=== PATIENT | male | born 1960 | race Caucasian/White ===

== ENCOUNTER 2020-06-20 08:56 | Inpatient (IN) | payer OTHER ==
--- NOTE | 2020-06-20 09:44 | PDOC ---
History of Present Illness - General Chief Complaint: Pain Stated Complaint: STOMACH PAIN Time Seen by Provider: 06/20/20 09:39 History Source: Patient - History of Present Illness Initial Comments: 06/20/20 10:07 Mr. Helm is a 59 y/o M w/hx CHF, HTN, DM one month ago admitted for CHF excacerbation at [facility] worsening sob, orthopnea since alongside leg swelling Describes worsening abdominal swelling/tightness Now sleeps sitting up in chair no fevers, chills, but reports generalized weakness PCP: Dr. Roldan Past History - Medical History Allergies/Adverse Reactions: Allergies Allergy/AdvReac Type Severity Reaction Status Date / Time No Known Allergies Allergy Verified 06/20/20 08:59 COPD: No Diabetes: Yes HTN: Yes - Psycho-Social/Smoking History Smoking History: Never smoked - Substance Abuse Hx (Audit-C & DAST Scrn) How often the patient has a drink containing alcohol: Never Score: In Men: 4 or > Positive; In Women: 3 or > Positive: 0 Screen Result (Pos requires Nsg. Audit-10AR): Negative *Physical Exam - Vital Signs Last Vital Signs Temp Pulse Resp BP Pulse Ox 97 F L 74 18 194/114 H 95 06/20/20 08:57 06/20/20 08:57 06/20/20 08:57 06/20/20 08:57 06/20/20 08:57 ED Treatment Course - LABORATORY CBC & Chemistry Diagram: 06/20/20 10:20 06/20/20 10:28 Medical Decision Making - Medical Decision Making 06/20/20 17:26 59M w/hx CHF, DM, HTN p/w 4 days of worsening orthopnea, generalized weakness, worsening lower extremity swelling, and recent inpatient admission at [facility] for CHF exacerbation, consistent with CHF exacerbation. Ddx ACS, acute on chronic CHF. Plan: CBC CMP EKG CXR Troponin I BNP secured entrance monitor Sublingual nitro Dispo: Admit --- Glucose - 890 No anion gap on initial electrolytes. K - 4.4 Na (corrected for glucose) to 134 Cr - 2.6 Plan for VBG, 10u insulin SQ with frequent rechecks given SADIA vs CKD. BNP - >9000. --- VBG - wnl --- Case discussed with inpatient team, admitted under Dr. Bhandari. Discharge - Discharge Information Problems reviewed: Yes Clinical Impression/Diagnosis: Hyperglycemia CHF (congestive heart failure) Qualifiers: Heart failure type: unspecified Heart failure chronicity: acute Qualified Code(s): I50.9 - Heart failure, unspecified Condition: Stable - Admission Yes - Follow up/Referral - Patient Discharge Instructions - Post Discharge Activity
[2020-06-20 10:48] LABS: HEMATOCRIT 30.8 % (35.4-49); HEMOGLOBIN 9.2 GM/dL (11.7-16.9); MCH 23.3 pg (25.7-33.7); MCHC 29.7 g/dl (32.0-35.9); MEAN CELL VOLUME 78.3 fl (80-96); MEAN PLT VOLUME 10.6 fl (7.5-11.1); PLATELET COUNT 305 K/MM3 (134-434); RBC 3.94 M/mm3 (4.00-5.60); RDW 24.4 % (11.9-15.9)
[2020-06-20] MEDS ORDERED: NITROGLYCERIN SUBLINGUAL 1/150 0.4 MG TAB SL ONE (10:54)
[2020-06-20] MEDS ORDERED: NITROGLYCERIN SUBLINGUAL 1/150 0.4 MG TAB ONE (11:02)
[2020-06-20 11:06] LABS: WHITE BLOOD COUNT 8.7 K/mm3 (4.0-10.0)
[2020-06-20 11:08] LABS: ALBUMIN 3.1 g/dl (3.4-5.0); BLOOD UREA NITROGEN 20.4 mg/dL (7-18); CREATININE 2.9 mg/dL (0.55-1.3); N-TERMINAL BNP 9595.1 pg/ml (5-125); POTASSIUM 4.4 mmol/L (3.5-5.1); TOT PROT 7.4 g/dl (6.4-8.2)
[2020-06-20 11:37] LABS: BILIRUBIN,TOTAL 1.2 mg/dL (0.2-1)
[2020-06-20 11:50] LABS: ANISOCYTOSIS 3+; MACROCYTOSIS 0; PLATELET ESTIMATE NORMAL
[2020-06-20] MEDS ORDERED: FUROSEMIDE 40 MG TABLET (FP) ONE (12:00)
[2020-06-20] MEDS ORDERED: INSULIN REGULAR HUMAN 100 UNITS/ML *VIAL SQ ONE ×2 (12:02→19:39)
[2020-06-20] MEDS ORDERED: FUROSEMIDE 40 MG TABLET (FP) PO ONE (12:03)
[2020-06-20] MEDS ORDERED: amLODIPine BESYLATE 5 MG TABLET (FP) PO ONE (12:49)
[2020-06-20] MEDS ORDERED: amLODIPine BESYLATE 5 MG TABLET (FP) ONE (12:51)
--- NOTE | 2020-06-20 13:59 | PDOC ---
Documentation entered by Renetta Damon SCRIBE, acting as scribe for Halle Kat MD. Halle Kat MD: This documentation has been prepared by the larryeNelson Ana, SCRIBE, under my direction and personally reviewed by me in its entirety. I confirm that the documentation accurately reflects all work, treatment, procedures, and medical decision making performed by me. Attending Attestation - Resident Resident Name: Osmin Dc - ED Attending Attestation I have performed the following: I have examined & evaluated the patient, The case was reviewed & discussed with the resident, I agree w/resident's findings & plan, Exceptions are as noted - HPI HPI: 06/20/20 09:50 Agree with resident hx - Physicial Exam PE: 06/20/20 13:31 Agree with resident exam - Medical Decision Making 06/20/20 13:31 59yo M hx CHF, DM presents to the ED with SOB Bp elevated on arrival, pt poor historian. States he does not take meds for DM states he is compliant with lasix, but does not know dose +LE edema and diminished BS at the bases concerning for CHF exacerbation Blood sugar in 800s, with no anion gap. Likely hyperglycemia in setting of med non-compliance Pt given IV lasix and SQ insulin 10 units given - insulin underdosed as homeopathic doctor elevated Pt admitted for CHF exacerbation and glucose control Case discussed in detail with admitting physician including history, physical exam and ancillary studies. Admitting physician has assumed care for the patient, will follow all pending diagnostics and will complete the evaluation and treatment. Discharge - Discharge Information Problems reviewed: Yes Clinical Impression/Diagnosis: Hyperglycemia Condition: Stable - Follow up/Referral - Patient Discharge Instructions - Post Discharge Activity
[2020-06-20] MEDS: FUROSEMIDE 40 MG/4 ML INJECTABLE VIAL IVPUSH SCH (17:23)
--- NOTE | 2020-06-20 17:49 | EKG ---
Test Reason : Blood Pressure : / mmHG Vent. Rate : 068 BPM Atrial Rate : 068 BPM P-R Int : 188 ms QRS Dur : 116 ms QT Int : 454 ms P-R-T Axes : 074 037 116 degrees QTc Int : 482 ms NORMAL SINUS RHYTHM LEFT ATRIAL ENLARGEMENT LEFT VENTRICULAR HYPERTROPHY T WAVE ABNORMALITY, CONSIDER LATERAL ISCHEMIA PROLONGED QT ABNORMAL ECG NO PREVIOUS ECGS AVAILABLE Confirmed by MD MC, ABIODUN ([id number]) on 06/20/2020 5:49:15 PM Referred By: Confirmed By:ABIODUN BENTLEY MD
[2020-06-20] MEDS ORDERED: METOPROLOL TARTRATE 5 MG/5 ML VIAL IVPUSH PRN (19:22)
[2020-06-20] MEDS ORDERED: FUROSEMIDE 40 MG/4 ML INJECTABLE VIAL IVPUSH ONE (19:24)
[2020-06-20] MEDS ORDERED: hydrALAZINE HCL 20 MG/ML VIAL IVPUSH ONE (19:27)
[2020-06-20] MEDS ORDERED: INSULIN (LEVEMIR) 100 UNITS/ML UNITS SQ ONE ×2 (19:38→21:00)
[2020-06-20] MEDS ORDERED: FUROSEMIDE 40 MG/4 ML INJECTABLE VIAL ONE (19:43)
[2020-06-20] MEDS ORDERED: hydrALAZINE HCL 20 MG/ML VIAL ONE (19:43)
[2020-06-20] MEDS ORDERED: POTASSIUM CHLORIDE TABS 20 MEQ TABLET.ER (FP) PO SCH (19:45)
[2020-06-20 20:35] LABS: ALBUMIN 2.9 g/dl (3.4-5.0); BILIRUBIN,TOTAL 1.3 mg/dL (0.2-1); BLOOD UREA NITROGEN 19.1 mg/dL (7-18); CALCIUM 9.2 mg/dL (8.5-10.1); CREATININE 2.6 mg/dL (0.55-1.3); POTASSIUM 3.8 mmol/L (3.5-5.1); TOT PROT 6.9 g/dl (6.4-8.2)
[2020-06-20] MEDS ORDERED: POTASSIUM CHLORIDE TABS 20 MEQ TABLET.ER (FP) PO ONE (20:56)
[2020-06-20] MEDS ORDERED: CARVEDILOL 3.125 MG TABLET (FP) ONE (22:35)
[2020-06-20] MEDS: CARVEDILOL 6.25 MG TABLET (FP) PO SCH (23:06)
[2020-06-20] MEDS: hydrALAZINE HCL 10 MG TABLET PO SCH (23:06)
[2020-06-20] MEDS ORDERED: INSULIN (NOVOLOG) ASPART 100 UNITS/ML 10ML VIAL SQ ONE (23:53)
[2020-06-21] MEDS ORDERED: DEXTROSE 50%-WATER - 25 GM/50 ML VIAL IVPUSH ONE ×2 (05:08→09:00)
[2020-06-21] MEDS ORDERED: DEXTROSE 50%-WATER 25 GM/50 ML DISP.SYRIN ONE ×2 (05:09→08:02)
[2020-06-21] MEDS: hydrALAZINE HCL 10 MG TABLET PO SCH ×3 (05:22→21:26)
--- NOTE | 2020-06-21 08:02 | CONSULT ---
Consult Consult Specialty:: Nephrology Reason for Consultation:: CKD - History of Present Illness Chief Complaint: shortness of breath History of Present Illness: Pt is a 59 year old male with pmhx of CHD, DM, CKD and HTN who presents to the ER with shortness of breath and lower ext edema. He is known to me. He denies chest pain or palpitations. He was found to be hyponatremic and fluids overloaded. He was supposed to be on torsemide since his last hospital discharge however he is not sure if he is taking it. He was also found to be hyperglycemic as well. He says he was taking insulin at home. - History Source History Provided By: Patient, Medical Record - Past Medical History Cardio/Vascular: Yes: CHF, HTN Renal/: Yes: Renal Inusuff Endocrine: Yes: Diabetes Mellitus - Smoking History Smoking history: Never smoked Home Medications - Allergies Allergies/Adverse Reactions: Allergies Allergy/AdvReac Type Severity Reaction Status Date / Time No Known Allergies Allergy Verified 06/20/20 08:59 - Home Medications Home Medications: Ambulatory Orders Unobtainable 06/20/20 Family Medical History Family History: Denies Review of Systems - Review of Systems Constitutional: reports: Malaise Eyes: reports: No Symptoms HENT: reports: No Symptoms Neck: reports: No Symptoms Cardiovascular: reports: Edema, Shortness of Breath Respiratory: reports: SOB on Exertion Gastrointestinal: reports: No Symptoms Genitourinary: reports: No Symptoms Musculoskeletal: reports: No Symptoms Integumentary: reports: No Symptoms Neurological: reports: No Symptoms Endocrine: reports: No Symptoms Hematology/Lymphatic: reports: No Symptoms Psychiatric: reports: No Symptoms Physical Exam Vital Signs: Vital Signs Temperature 98.1 F 06/21/20 06:58 Pulse Rate 56 L 06/21/20 06:58 Respiratory Rate 18 06/21/20 06:58 Blood Pressure 123/86 06/21/20 06:58 O2 Sat by Pulse Oximetry (%) 100 06/21/20 06:58 Constitutional: Yes: Calm Eyes: Yes: Conjunctiva Clear HENT: Yes: Atraumatic Neck: Yes: Supple Cardiovascular: Yes: Regular Rate and Rhythm, S1, S2 Respiratory: Yes: On Nasal O2, Rhonchi Gastrointestinal: Yes: Normal Bowel Sounds, Soft Renal/: Yes: WNL Edema: Yes Edema: LLE: 2+, RLE: 2+ Neurological: Yes: Oriented Psychiatric: Yes: Oriented Labs: CBC, BMP 06/20/20 10:20 06/20/20 19:40 Laboratory Tests 06/20/20 06/20/20 06/20/20 10:20 10:28 19:40 WBC 8.7 Hgb 9.2 L Sodium 123 L 128 L Potassium BUN Creatinine 2.9 H 2.6 H Magnesium COVID-19 ([facility]) 06/21/20 06/21/20 06/21/20 04:25 08:27 08:27 WBC Hgb 9.7 L Sodium 133 L Potassium 3.0 L BUN 20.5 H Creatinine 2.5 H Magnesium 2.3 COVID-19 ([facility]) Pending Imaging - Results Chest X-ray: Report Reviewed Problem List - Problems (1) CKD (chronic kidney disease) Code(s): N18.9 - CHRONIC KIDNEY DISEASE, UNSPECIFIED (2) Hyponatremia Code(s): E87.1 - HYPO-OSMOLALITY AND HYPONATREMIA (3) Anemia Code(s): D64.9 - ANEMIA, UNSPECIFIED (4) CHF (congestive heart failure) Code(s): I50.9 - HEART FAILURE, UNSPECIFIED Qualifiers: Heart failure type: unspecified Heart failure chronicity: acute Qualified Code(s): I50.9 - Heart failure, unspecified (5) Diabetes Code(s): E11.9 - TYPE 2 DIABETES MELLITUS WITHOUT COMPLICATIONS (6) HTN (hypertension) Code(s): I10 - ESSENTIAL (PRIMARY) HYPERTENSION Assessment/Plan Current Medications Generic Name Dose Route Start Last Admin Trade Name Salvatoreq PRN Reason Stop Dose Admin Carvedilol 6.25 mg 06/20/20 22:00 06/20/20 23:06 Coreg - PO 6.25 mg BID MANOHAR Administration Furosemide 40 mg 06/20/20 13:00 06/20/20 17:23 Lasix Injection - IVPUSH Not Given DAILY MANOHAR Hydralazine HCl 10 mg 06/20/20 22:00 06/21/20 05:22 Apresoline - PO 10 mg TID MANOHAR Administration Insulin Aspart 1 vial 06/21/20 07:00 Novolog Vial Sliding Scale - SQ TIDAC [facility] Protocol Insulin Detemir 30 units 06/21/20 10:00 Levemir Vial SQ BID MANOHAR Isosorbide Mononitrate 30 mg 06/21/20 10:00 Imdur - PO DAILY MANOHAR Potassium Chloride 20 meq 06/20/20 19:45 06/20/20 20:57 K-Dur - PO 20 meq DAILY MANOHAR Administration Impression 1. CKD 2. hyponatremia - hypervolemic 3. DM 4. HTN 5. hyperglycemia 6. volume overload Plan - cont lasix - replace potassium - monitor lytes - sodium improving - follow echo - pt has CKD, will monitor renal function and follow as outpt - bp is improved - restrict free water
[2020-06-21] MEDS: INSULIN SLIDING SCALE (NOVOLOG) 1 VIAL SQ SCH ×3 (08:10→18:13)
[2020-06-21 08:54] LABS: HEMATOCRIT 31.5 % (35.4-49); HEMOGLOBIN 9.7 GM/dL (11.7-16.9); MCH 23.1 pg (25.7-33.7); MCHC 30.9 g/dl (32.0-35.9); MEAN CELL VOLUME 74.6 fl (80-96); MEAN PLT VOLUME 9.9 fl (7.5-11.1); PLATELET COUNT 380 K/MM3 (134-434); RBC 4.22 M/mm3 (4.00-5.60); RDW 24.3 % (11.9-15.9); WHITE BLOOD COUNT 9.3 K/mm3 (4.0-10.0)
[2020-06-21 09:10] LABS: ALBUMIN 2.8 g/dl (3.4-5.0); BILIRUBIN,TOTAL 1.6 mg/dL (0.2-1); BLOOD UREA NITROGEN 20.5 mg/dL (7-18); CALCIUM 9.3 mg/dL (8.5-10.1); CREATININE 2.5 mg/dL (0.55-1.3); MAGNESIUM 2.3 mg/dL (1.8-2.4); TOT PROT 7.1 g/dl (6.4-8.2)
--- NOTE | 2020-06-21 09:27 | PN ---
Progress Note, Physician History of Present Illness: 59M w/hx CHF, DM, HTN p/w 4 days of worsening orthopnea, generalized weakness, worsening lower extremity swelling, and recent inpatient admission at [facility] for CHF exacerbation, consistent with CHF exacerbation. Ddx ACS, acute on chronic CHF. - Current Medication List Current Medications: Active Medications Carvedilol (Coreg -) 6.25 mg PO BID [facility] Last Admin: 06/20/20 23:06 Dose: 6.25 mg Documented by: Furosemide (Lasix Injection -) 40 mg IVPUSH DAILY [facility] Last Admin: 06/20/20 17:23 Dose: Not Given Documented by: Hydralazine HCl (Apresoline -) 10 mg PO TID [facility] Last Admin: 06/21/20 05:22 Dose: 10 mg Documented by: Insulin Aspart (Novolog Vial Sliding Scale -) 1 vial SQ TIDAC [facility]; Protocol Last Admin: 06/21/20 08:10 Dose: Not Given Documented by: Insulin Detemir (Levemir Vial) 30 units SQ BID [facility] Isosorbide Mononitrate (Imdur -) 30 mg PO DAILY [facility] Potassium Chloride (K-Dur -) 20 meq PO DAILY [facility] Last Admin: 06/20/20 20:57 Dose: 20 meq Documented by: - Objective Vital Signs: Vital Signs Temperature 98.1 F 06/21/20 06:58 Pulse Rate 56 L 06/21/20 06:58 Respiratory Rate 18 06/21/20 06:58 Blood Pressure 123/86 06/21/20 06:58 O2 Sat by Pulse Oximetry (%) 100 06/21/20 06:58 Cardiovascular: Yes: S1, S2 Respiratory: Yes: Diminished, On Nasal O2, Rales (at the bases) Gastrointestinal: Yes: Normal Bowel Sounds, Soft Labs: CBC, BMP 06/21/20 08:27 06/21/20 08:27 Problem List - Problems (1) CHF (congestive heart failure) Assessment/Plan: Orders 06/20/20 22:00 Carvedilol [Coreg -] 6.25 mg PO BID Lasix 40 IVP daily cardiology consult Echo follow labs Code(s): I50.9 - HEART FAILURE, UNSPECIFIED Qualifiers: Heart failure type: unspecified Heart failure chronicity: acute Qualified Code(s): I50.9 - Heart failure, unspecified (2) Diabetes Assessment/Plan: insulin bgm endo Code(s): E11.9 - TYPE 2 DIABETES MELLITUS WITHOUT COMPLICATIONS (3) Hyperglycemia Code(s): R73.9 - HYPERGLYCEMIA, UNSPECIFIED (4) HTN (hypertension) Assessment/Plan: monitor on current meds Code(s): I10 - ESSENTIAL (PRIMARY) HYPERTENSION (5) SADIA (acute kidney injury) Code(s): N17.9 - ACUTE KIDNEY FAILURE, UNSPECIFIED (6) Anemia Code(s): D64.9 - ANEMIA, UNSPECIFIED
[2020-06-21] MEDS ORDERED: POTASSIUM CHLORIDE TABS 20 MEQ TABLET.ER (FP) PO ONE ×2 (09:34→10:38)
[2020-06-21 10:12] LABS: ANISOCYTOSIS 1+; MACROCYTOSIS 1+; PLATELET ESTIMATE NORMAL
[2020-06-21] MEDS ORDERED: FUROSEMIDE 40 MG/4 ML INJECTABLE VIAL ONE (10:38)
[2020-06-21] MEDS: ISOSORBIDE MONONITRATE 30 MG TAB.SR.24H (FP) PO SCH (10:55)
[2020-06-21] MEDS: CARVEDILOL 6.25 MG TABLET (FP) PO SCH ×2 (10:55→21:26)
--- NOTE | 2020-06-21 11:22 | CON.CARD ---
Consult Consult Specialty:: Cardiology Referred by:: Elisabet Reason for Consultation:: CHF - History of Present Illness Chief Complaint: SOB, edema History of Present Illness: He is a 59 year old man with a history of HTN, NIDDM, CHF noncompliant with medications, followed by Dr Benoit at [facility] recently admitted there for CHF now complains of 2-3 weeks of CONTRERAS, orthopnea, edema. Found with CKD?SADIA (unknown baseline) hyponatremia and CHF. ECG nsr lvh repol nssttw changes CXR cm chf TnI negative BNP elevated - History Source History Provided By: Patient, Medical Record - Smoking History Smoking history: Never smoked Home Medications - Allergies Allergies/Adverse Reactions: Allergies Allergy/AdvReac Type Severity Reaction Status Date / Time No Known Allergies Allergy Verified 06/20/20 08:59 - Home Medications Home Medications: Ambulatory Orders Unobtainable 06/20/20 Review of Systems - Review of Systems Constitutional: reports: No Symptoms Eyes: reports: No Symptoms HENT: reports: No Symptoms Neck: reports: No Symptoms Gastrointestinal: reports: No Symptoms Genitourinary: reports: No Symptoms Vital Signs: Vital Signs Temperature 98.1 F 06/21/20 06:58 Pulse Rate 56 L 06/21/20 06:58 Respiratory Rate 18 06/21/20 06:58 Blood Pressure 123/86 06/21/20 06:58 O2 Sat by Pulse Oximetry (%) 100 06/21/20 06:58 Constitutional: Yes: No Distress, Calm Eyes: Yes: EOM Intact HENT: Yes: Atraumatic, Normocephalic Neck: Yes: Trachea Midline Respiratory: Yes: CTA Bilaterally, Poor Air Entry, Rales (bilat bases) Gastrointestinal: Yes: Normal Bowel Sounds, Soft Cardiovascular: Yes: Regular Rate and Rhythm JVD: Yes Carotid Bruit: No PMI: Non-Displaced Heart Sounds: Yes: S1, S2 Musculoskeletal: Yes: WNL Extremities: Yes: WNL Edema: Yes Edema: LLE: 1+, RLE: 1+ Peripheral Pulses WNL: Yes - Other Data Labs, Other Data: CBC, BMP 06/21/20 08:27 06/21/20 08:27 Imaging - Results Chest X-ray: Report Reviewed (cm chf) EKG: Report Reviewed (nsr lvh repol nssttw changes) Assessment/Plan He is a 59 year old man with a history of HTN, NIDDM, CHF noncompliant with medications, followed by Dr Benoit at [facility] recently admitted there for CHF now complains of 2-3 weeks of CONTRERAS, orthopnea, edema. Found with CKD?SADIA (unknown baseline) hyponatremia and CHF. ECG nsr lvh repol nssttw changes CXR cm chf TnI negative BNP elevated IMP; Acute on chronic systolic CHF -diurese with IV lasix 40 BID -renal to see -echo -hold off on ACEI/ARB/ARNI for now. -continue BB and hydralazine/imdur -if possible get prior records from [facility]. -will follow with you.
--- NOTE | 2020-06-21 11:26 | ECHO ---
Name: MURIEL GÓMEZO Exam:Adult Echocardiogram Study Date: 06/21/2020 09:49 AM Age: 59 yrs Reason For Study: Arrhythmia Height: 68 in Weight: 185 lb BSA: 2.0 m2 MMode/2D Measurements & Calculations IVSd: 1.1 cm Ao root diam: 3.0 cm LVIDd: 5.1 cm LA dimension: 4.5 cm LVIDs: 3.2 cm LVPWd: 1.2 cm EDV(Teich): 122.5 ml LVOT diam: 2.0 cm ESV(Teich): 39.6 ml LAV (MOD-bp): 111.0 ml Doppler Measurements & Calculations MV E max juan: 81.5 cm/sec Ao V2 max: 145.2 cm/sec MV A max juan: 25.2 cm/sec Ao max P.4 mmHg MV E/A: 3.2 MV dec time: 0.56 sec KALI(V,D): 1.9 cm2 LV V1 max P.8 mmHg MR max juan: 441.2 cm/sec LV V1 max: 83.9 cm/sec MR max P.9 mmHg TR max juan: 308.4 cm/sec PA V2 max: 82.8 cm/sec TR max P.2 mmHg PA max P.7 mmHg Med Peak E' Juan: 4.5 cm/sec Med E/e': 18.3 Lat Peak E' Juan: 5.3 cm/sec Lat E/e': 15.3 Procedure A complete two-dimensional transthoracic echocardiogram was performed (2D, M-mode, Doppler and color flow Doppler). Left Ventricle The left ventricle is normal in size. Left ventricular systolic function is low normal. Ejection Frac tion = 50-55%. There is basal posterolateral wall mild hypokinesis. There is basal inferoseptal wall mild hypokinesis. There are regional wall motion abnormalities as specified. Right Ventricle The right ventricle is normal size. The right ventricular systolic function is normal. Atria The left atrium is moderately dilated. The right atrium is mildly dilated. Mitral Valve The mitral valve is normal in structure and function. There is moderate mitral regurgitation. Tricuspid Valve The tricuspid valve is normal in structure and function. There is moderate tricuspid regurgitation. P ASP is at least 48 mmHg with RA pressure of 3 mmHg. Aortic Valve The aortic valve is normal in structure and function. No aortic regurgitation is present. Pulmonic Valve The pulmonic valve is not well seen, but is grossly normal. Great Vessels The aortic root is normal size. Pericardium/Pleura Trivial pericardial effusion not hemodynamically significant. Interpretation Summary The left ventricle is normal in size. Left ventricular systolic function is low normal. There are regional wall motion abnormalities as specified. Ejection Fraction = 50-55%. The right ventricular systolic function is normal. The left atrium is moderately dilated. The right atrium is mildly dilated. There is moderate mitral regurgitation. There is moderate tricuspid regurgitation. PASP is at least 48 mmHg with RA pressure of 3 mmHg Trivial pericardial effusion not hemodynamically significant Gen Ramirez MD 06/21/2020 11:25 AM
[2020-06-21] MEDS: POTASSIUM CHLORIDE TABS 20 MEQ TABLET.ER (FP) PO SCH (11:55)
[2020-06-21] MEDS: FUROSEMIDE 40 MG/4 ML INJECTABLE VIAL IVPUSH SCH (11:55)
[2020-06-21] MEDS: INSULIN (LEVEMIR) 100 UNITS/ML UNITS SQ SCH ×2 (11:56→23:00)
[2020-06-21] MEDS ORDERED: hydrALAZINE HCL 25 MG TABLET (FP) ONE (14:32)
[2020-06-21] MEDS ORDERED: PT OWN MED DRAWER 7, Y5N ONE (14:52)
[2020-06-21] MEDS ORDERED: POTASSIUM CHLORIDE ORAL LIQUID 20 MEQ/15 ML PO ONE (18:00)
[2020-06-21] MEDS ORDERED: POTASSIUM CHLORIDE ORAL LIQUID 20 MEQ/15 ML ONE (18:42)
[2020-06-21] MEDS ORDERED: CARVEDILOL 3.125 MG TABLET (FP) ONE (21:21)
[2020-06-21 23:16] VITALS: BMI 29.2
[2020-06-22] MEDS: INSULIN SLIDING SCALE (NOVOLOG) 1 VIAL SQ SCH ×2 (06:27→11:26)
[2020-06-22] MEDS: FUROSEMIDE 40 MG/4 ML INJECTABLE VIAL IVPUSH SCH ×2 (06:27→13:36)
[2020-06-22] MEDS: hydrALAZINE HCL 10 MG TABLET PO SCH ×2 (06:27→13:36)
[2020-06-22 07:12] LABS: EOS % 12.1 % (0-4.5); HEMATOCRIT 29.2 % (35.4-49); HEMOGLOBIN 8.9 GM/dL (11.7-16.9); LYMPH % 18.8 % (8-40); MCH 22.8 pg (25.7-33.7); MCHC 30.4 g/dl (32.0-35.9); MEAN CELL VOLUME 75.2 fl (80-96); MEAN PLT VOLUME 10.3 fl (7.5-11.1); MONO % 6.3 % (3.8-10.2); NEUT % 61.8 % (42.8-82.8); PLATELET COUNT 355 K/MM3 (134-434); RBC 3.89 M/mm3 (4.00-5.60); WHITE BLOOD COUNT 9.7 K/mm3 (4.0-10.0)
[2020-06-22 07:20] LABS: ALBUMIN 2.4 g/dl (3.4-5.0); BILIRUBIN,TOTAL 0.7 mg/dL (0.2-1); BLOOD UREA NITROGEN 24.5 mg/dL (7-18); CALCIUM 8.7 mg/dL (8.5-10.1); CREATININE 2.5 mg/dL (0.55-1.3); TOT PROT 5.8 g/dl (6.4-8.2)
[2020-06-22] MEDS: CARVEDILOL 6.25 MG TABLET (FP) PO SCH (09:11)
[2020-06-22] MEDS: ISOSORBIDE MONONITRATE 30 MG TAB.SR.24H (FP) PO SCH (09:11)
[2020-06-22] MEDS: INSULIN (LEVEMIR) 100 UNITS/ML UNITS SQ SCH (09:11)
[2020-06-22] MEDS: POTASSIUM CHLORIDE TABS 20 MEQ TABLET.ER (FP) PO SCH (09:11)
--- NOTE | 2020-06-22 09:25 | PN ---
Progress Note, Physician History of Present Illness: He is a 59 year old man with a history of HTN, NIDDM, CHF noncompliant with medications, followed by Dr Benoit at [facility] recently admitted there for CHF now complains of 2-3 weeks of CONTRERAS, orthopnea, edema. Found with CKD?SADIA (unknown baseline) hyponatremia and CHF. ECG nsr lvh repol nssttw changes CXR cm chf TnI negative BNP elevated echo 06/21/20: low normal EF 50-55%, lae, chantelle, mod MR/TR pap48 trace nancy effusion. - Current Medication List Current Medications: Active Medications Carvedilol (Coreg -) 6.25 mg PO BID [facility] Last Admin: 06/22/20 09:11 Dose: 6.25 mg Documented by: Furosemide (Lasix Injection -) 40 mg IVPUSH BIDLASIX [facility] Last Admin: 06/22/20 06:27 Dose: 40 mg Documented by: Hydralazine HCl (Apresoline -) 10 mg PO TID [facility] Last Admin: 06/22/20 06:27 Dose: 10 mg Documented by: Insulin Aspart (Novolog Vial Sliding Scale -) 1 vial SQ TIDAC [facility]; Protocol Last Admin: 06/22/20 06:27 Dose: 4 units Documented by: Insulin Detemir (Levemir Vial) 30 units SQ BID [facility] Last Admin: 06/22/20 09:11 Dose: 30 units Documented by: Isosorbide Mononitrate (Imdur -) 30 mg PO DAILY [facility] Last Admin: 06/22/20 09:11 Dose: 30 mg Documented by: Potassium Chloride (K-Dur -) 20 meq PO DAILY [facility] Last Admin: 06/22/20 09:11 Dose: 20 meq Documented by: - Objective Vital Signs: Vital Signs Temperature 98.1 F 06/22/20 08:33 Pulse Rate 65 06/22/20 08:33 Respiratory Rate 20 06/22/20 08:33 Blood Pressure 139/85 06/22/20 08:33 O2 Sat by Pulse Oximetry (%) 98 06/22/20 08:33 Constitutional: Yes: No Distress, Calm Eyes: Yes: Conjunctiva Clear, EOM Intact HENT: Yes: Normocephalic Neck: Yes: Trachea Midline Cardiovascular: Yes: Regular Rate and Rhythm Respiratory: Yes: CTA Bilaterally Gastrointestinal: Yes: Normal Bowel Sounds, Soft Extremities: Yes: WNL Edema: No Peripheral Pulses WNL: Yes Labs: CBC, BMP 06/22/20 05:35 06/22/20 05:35 Assessment/Plan He is a 59 year old man with a history of HTN, NIDDM, CHF noncompliant with medications, followed by Dr Benoit at [facility] recently admitted there for CHF now complains of 2-3 weeks of CONTRERAS, orthopnea, edema. Found with CKD?SADIA (unknown baseline) hyponatremia and CHF. ECG nsr lvh repol nssttw changes CXR cm chf TnI negative BNP elevated echo 06/21/20: low normal EF 50-55%, lae, chantelle, mod MR/TR pap48 trace nancy effusion. IMP; Acute on chronic diastolic CHF -diurese with IV lasix 40 BID -renal to see -echo low normal EF -hold off on ACEI/ARB/ARNI for now. -continue BB and hydralazine/imdur -if possible get prior records from [facility]. -can dc telemetry. -will follow with you.
--- NOTE | 2020-06-22 09:50 | PN ---
Progress Note, Physician Chief Complaint: SOB HHNK Anemia Hyponetremia SADIA History of Present Illness: NAD Breathing improved Seen by cardiology ECG nsr lvh repol nssttw changes CXR cm chf TnI negative BNP elevated - Current Medication List Current Medications: Active Medications Carvedilol (Coreg -) 6.25 mg PO BID [facility] Last Admin: 06/22/20 09:11 Dose: 6.25 mg Documented by: Furosemide (Lasix Injection -) 40 mg IVPUSH BIDLASIX REPLACED BY [facility] Last Admin: 06/22/20 06:27 Dose: 40 mg Documented by: Hydralazine HCl (Apresoline -) 10 mg PO TID [facility]PL[facility] Last Admin: 06/22/20 06:27 Dose: 10 mg Documented by: Insulin Aspart (Novolog Vial Sliding Scale -) 1 vial SQ TIDAC REPLACED BY [facility]; Protocol Last Admin: 06/22/20 06:27 Dose: 4 units Documented by: Insulin Detemir (Levemir Vial) 36 units SQ BID [facility]PL[facility] Isosorbide Mononitrate (Imdur -) 30 mg PO DAILY [facility] Last Admin: 06/22/20 09:11 Dose: 30 mg Documented by: Potassium Chloride (K-Dur -) 20 meq PO DAILY [facility] Last Admin: 06/22/20 09:11 Dose: 20 meq Documented by: - Objective Vital Signs: Vital Signs Temperature 98.1 F 06/22/20 08:33 Pulse Rate 65 06/22/20 08:33 Respiratory Rate 20 06/22/20 08:33 Blood Pressure 139/85 06/22/20 08:33 O2 Sat by Pulse Oximetry (%) 98 06/22/20 08:33 Labs: CBC, BMP 06/22/20 05:35 06/22/20 05:35
--- NOTE | 2020-06-22 09:52 | HP ---
Admitting History and Physical - Primary Care Physician PCP: Harris Ponce - Admission Chief Complaint: SOB. HHNK. Anemia. SADIA. Hyponatremia History of Present Illness: Pt is a 59 year old male with pmhx of CHD, DM, CKD and HTN who presents to the ER with shortness of breath and lower ext edema. He is known to me. He denies chest pain or palpitations. He was found to be hyponatremic and fluids overloaded. He was supposed to be on torsemide since his last hospital discharge however he is not sure if he is taking it. He was also found to be hyperglycemic as well. He says he was taking insulin at home. - Past Medical History Cardiovascular: Yes: CHF, HTN Renal/: Yes: Renal Inusuff Endocrine: Yes: Diabetes Mellitus - Smoking History Smoking history: Never smoked Have you smoked in the past 12 months: No Home Medications - Allergies Allergies/Adverse Reactions: Allergies Allergy/AdvReac Type Severity Reaction Status Date / Time No Known Allergies Allergy Verified 06/20/20 08:59 - Home Medications Home Medications: Ambulatory Orders Carvedilol [Coreg -] 6.25 mg PO BID #60 tablet 06/22/20 Furosemide [Lasix -] 40 mg PO BID #60 tablet 06/22/20 Insulin Glargine,Hum.rec.anlog [Basaglar Kwikpen U-100] 30 unit SQ AM #1 insuln.pen 06/22/20 Insulin Sliding Scale [Novolog Vial Sliding Scale -] 1 vial SQ TIDAC units 06/22/20 Isosorbide Mononitrate [Imdur -] 30 mg PO DAILY #30 tab.sr.24h 06/22/20 Potassium Chloride [K-Dur -] 20 meq PO DAILY #30 tablet.er 06/22/20 hydrALAZINE HCL [Apresoline -] 10 mg PO TID #90 tablet 06/22/20 Family Medical History Family History: Denies Review of Systems Findings/Remarks: NAD Breathing improved Seen by cardiology ECG nsr lvh repol nssttw changes CXR cm chf TnI negative BNP elevated echo 06/21/20: low normal EF 50-55%, lae, chantelle, mod MR/TR pap48 trace nancy effusion. - Review of Systems Constitutional: reports: No Symptoms Eyes: reports: No Symptoms HENT: reports: No Symptoms Neck: reports: No Symptoms Cardiovascular: reports: No Symptoms Respiratory: reports: SOB Gastrointestinal: reports: No Symptoms Genitourinary: reports: No Symptoms Breasts: reports: No Symptoms Reported Musculoskeletal: reports: No Symptoms Integumentary: reports: No Symptoms Neurological: reports: No Symptoms Endocrine: reports: No Symptoms Hematology/Lymphatic: reports: No Symptoms Psychiatric: reports: No Symptoms Physical Examination Vital Signs: Vital Signs Temperature 98.1 F 06/22/20 08:33 Pulse Rate 65 06/22/20 08:33 Respiratory Rate 20 06/22/20 08:33 Blood Pressure 139/85 06/22/20 08:33 O2 Sat by Pulse Oximetry (%) 98 06/22/20 08:33 Findings/Remarks: NAD Sitting at the edge of the bed wants to go home Denies any SOB or chest pain Seen by Cardiology Constitutional: Yes: Well Nourished, No Distress, Calm Cardiovascular: Yes: Regular Rate and Rhythm Respiratory: Yes: Regular, CTA Bilaterally Gastrointestinal: Yes: Normal Bowel Sounds, Soft Renal/: Yes: WNL Musculoskeletal: Yes: WNL Extremities: Yes: WNL Edema: Yes Edema: LLE: 1+, RLE: 1+ Peripheral Pulses WNL: Yes Neurological: Yes: Alert, Oriented Psychiatric: Yes: Alert, Oriented Labs: CBC, BMP 06/22/20 05:35 06/22/20 05:35 Problem List - Problems (1) HHNC (hyperglycemic hyperosmolar nonketotic coma) Assessment/Plan: -Resolved -Continue basalgar 30 U AM at home -Continue Novolog sliding scale (provided) -F/U with Endocrinology outpatient Problems reviewed: Yes Code(s): E11.01 - TYPE 2 DIABETES MELLITUS WITH HYPEROSMOLARITY WITH COMA (2) SADIA (acute kidney injury) Assessment/Plan: -Improved -F/u with nephrology outpatient Problems reviewed: Yes Code(s): N17.9 - ACUTE KIDNEY FAILURE, UNSPECIFIED (3) Anemia Assessment/Plan: -Chronic, stable -likely 2/2 to CKD -follow trend Problems reviewed: Yes Code(s): D64.9 - ANEMIA, UNSPECIFIED (4) CHF (congestive heart failure) Assessment/Plan: -Seen by cardiology -Furosemide 40 mg po bid -F/U with Dr Drake outpatient Problems reviewed: Yes Code(s): I50.9 - HEART FAILURE, UNSPECIFIED Qualifiers: Heart failure type: unspecified Heart failure chronicity: acute Qualified Code(s): I50.9 - Heart failure, unspecified (5) Diabetes Assessment/Plan: -A1c at 14 -Continue basalgar 30 U AM -Continue Novolog sliding scale tid ac outpatient -Diabetes teaching provided -F/U with endocrinology outpatient Problems reviewed: Yes Code(s): E11.9 - TYPE 2 DIABETES MELLITUS WITHOUT COMPLICATIONS Assessment/Plan See problem list
--- NOTE | 2020-06-22 10:31 | PN ---
Progress Note (short form) - Note Progress Note: PULMONARY CONSULTATION DICTATED 06/22/20 IMP DYSPNEA/CHEST PAIN ACUTE ON CHRONIC CHF HTN DM HYPONATREMIA LIKELY ACUTE ON CHRONIC KIDNEY INJURY ANEMIA PLAN SUPPLEMENTAL O2 LASIX DAILY WTS F/U CHEST X-RAYS MONITOR LYTES,RENAL FUNCTION,NA MONITOR H+H ECHO STRESS COMPLIANCE WITH MEDS DR GARCIA Problem List - Problems (1) SADIA (acute kidney injury) Code(s): N17.9 - ACUTE KIDNEY FAILURE, UNSPECIFIED (2) Anemia Code(s): D64.9 - ANEMIA, UNSPECIFIED (3) CHF (congestive heart failure) Code(s): I50.9 - HEART FAILURE, UNSPECIFIED Qualifiers: Heart failure type: unspecified Heart failure chronicity: acute Qualified Code(s): I50.9 - Heart failure, unspecified (4) CKD (chronic kidney disease) Code(s): N18.9 - CHRONIC KIDNEY DISEASE, UNSPECIFIED (5) Diabetes Code(s): E11.9 - TYPE 2 DIABETES MELLITUS WITHOUT COMPLICATIONS (6) HTN (hypertension) Code(s): I10 - ESSENTIAL (PRIMARY) HYPERTENSION (7) Hyponatremia Code(s): E87.1 - HYPO-OSMOLALITY AND HYPONATREMIA (8) Dyspnea Code(s): R06.00 - DYSPNEA, UNSPECIFIED
[2020-06-22] MEDS ORDERED: INSULIN (LEVEMIR) 100 UNITS/ML UNITS SQ ONE (11:36)
--- NOTE | 2020-06-22 13:58 | PN ---
Progress Note, Physician History of Present Illness: Pt seen and examined at bedside. He is awake and appears comfortable. He feels that his edema is improving. - Current Medication List Current Medications: Active Medications Carvedilol (Coreg -) 6.25 mg PO BID [facility] Last Admin: 06/22/20 09:11 Dose: 6.25 mg Documented by: Furosemide (Lasix Injection -) 40 mg IVPUSH BIDLASIX [facility] Last Admin: 06/22/20 13:36 Dose: 40 mg Documented by: Hydralazine HCl (Apresoline -) 10 mg PO TID [facility] Last Admin: 06/22/20 13:36 Dose: 10 mg Documented by: Insulin Aspart (Novolog Vial Sliding Scale -) 1 vial SQ TIDAC [facility]; Protocol Last Admin: 06/22/20 11:26 Dose: Not Given Documented by: Insulin Detemir (Levemir Vial) 36 units SQ 0700,2200 [facility] Isosorbide Mononitrate (Imdur -) 30 mg PO DAILY [facility] Last Admin: 06/22/20 09:11 Dose: 30 mg Documented by: Potassium Chloride (K-Dur -) 20 meq PO DAILY [facility] Last Admin: 06/22/20 09:11 Dose: 20 meq Documented by: - Objective Vital Signs: Vital Signs Temperature 98.1 F 06/22/20 08:33 Pulse Rate 65 06/22/20 08:33 Respiratory Rate 20 06/22/20 08:33 Blood Pressure 139/85 06/22/20 08:33 O2 Sat by Pulse Oximetry (%) 98 06/22/20 08:33 Constitutional: Yes: Calm Eyes: Yes: Conjunctiva Clear HENT: Yes: Atraumatic Neck: Yes: Supple Cardiovascular: Yes: S1, S2 Respiratory: Yes: On Nasal O2 Gastrointestinal: Yes: Soft Genitourinary: Yes: WNL Musculoskeletal: Yes: WNL Edema: Yes Edema: LLE: 2+, RLE: 2+ Neurological: Yes: Oriented Psychiatric: Yes: Oriented Labs: CBC, BMP 06/22/20 05:35 06/22/20 05:35 Problem List - Problems (1) CKD (chronic kidney disease) Code(s): N18.9 - CHRONIC KIDNEY DISEASE, UNSPECIFIED (2) Hyponatremia Code(s): E87.1 - HYPO-OSMOLALITY AND HYPONATREMIA (3) Anemia Code(s): D64.9 - ANEMIA, UNSPECIFIED (4) CHF (congestive heart failure) Code(s): I50.9 - HEART FAILURE, UNSPECIFIED Qualifiers: Heart failure type: unspecified Heart failure chronicity: acute Qualified Code(s): I50.9 - Heart failure, unspecified (5) Diabetes Code(s): E11.9 - TYPE 2 DIABETES MELLITUS WITHOUT COMPLICATIONS (6) HTN (hypertension) Code(s): I10 - ESSENTIAL (PRIMARY) HYPERTENSION Assessment/Plan Current Medications Generic Name Dose Route Start Last Admin Trade Name Mirella PRN Reason Stop Dose Admin Carvedilol 6.25 mg 06/20/20 22:00 06/22/20 09:11 Coreg - PO 6.25 mg BID [facility]OHAR Administration Furosemide 40 mg 06/22/20 06:00 06/22/20 13:36 Lasix Injection - IVPUSH 40 mg BIDLASIX [facility]OHAR Administration Hydralazine HCl 10 mg 06/20/20 22:00 06/22/20 13:36 Apresoline - PO 10 mg TID [facility]OHAR Administration Insulin Aspart 1 vial 06/21/20 07:00 06/22/20 11:26 Novolog Vial Sliding Scale - SQ Not Given TIDAC [facility] Protocol Insulin Detemir 36 units 06/22/20 22:00 Levemir Vial SQ 0700,2200 [facility] Isosorbide Mononitrate 30 mg 06/21/20 10:00 06/22/20 09:11 Imdur - PO 30 mg DAILY [facility]OHAR Administration Potassium Chloride 20 meq 06/21/20 10:00 06/22/20 09:11 K-Dur - PO 20 meq DAILY [facility]OH[facility] Administration Impression 1. CKD 2. hyponatremia - hypervolemic 3. DM 4. HTN 5. hyperglycemia 6. volume overload Plan - cont lasix - restrict free water - repeat labs in am - glucose control - no change in renal function - will need outpt workup - dm poorly controlled, discussed compliance
--- NOTE | 2020-06-22 14:54 | DS ---
Physical Examination Vital Signs: Vital Signs Temperature 98.1 F 06/22/20 08:33 Pulse Rate 65 06/22/20 08:33 Respiratory Rate 20 06/22/20 08:33 Blood Pressure 139/85 06/22/20 08:33 O2 Sat by Pulse Oximetry (%) 98 06/22/20 08:33 Findings/Remarks: Pt is a 59 year old male with pmhx of CHD, DM, CKD and HTN who presents to the ER with shortness of breath and lower ext edema. He is known to me. He denies chest pain or palpitations. He was found to be hyponatremic and fluids overloaded. He was supposed to be on torsemide since his last hospital discharge however he is not sure if he is taking it. He was also found to be hyperglycemic as well. He says he was taking insulin at home. Constitutional: Yes: Well Nourished, No Distress, Calm Cardiovascular: Yes: Regular Rate and Rhythm Respiratory: Yes: Regular, CTA Bilaterally Gastrointestinal: Yes: Normal Bowel Sounds, Soft Renal/: Yes: WNL Musculoskeletal: Yes: WNL Extremities: Yes: WNL Edema: Yes Edema: LLE: 1+, RLE: 1+ Peripheral Pulses WNL: Yes Neurological: Yes: Alert, Oriented Psychiatric: Yes: Alert, Oriented Labs: CBC, BMP 06/22/20 05:35 06/22/20 05:35 Discharge Summary Problems reviewed: Yes Reason For Visit: ACUTE ON CHRONIC CHF; HYPEROSMOLARITY SYNDROME Current Active Problems SADIA (acute kidney injury) (Acute) Anemia (Acute) CHF (congestive heart failure) (Acute) CKD (chronic kidney disease) (Acute) Diabetes (Acute) Dyspnea (Acute) HTN (hypertension) (Acute) Hyperglycemia (Acute) Hyponatremia (Acute) Condition: Stable - Instructions Diet, Activity, Other Instructions: - Take Basalgar at 30 units daily in AM - Novolog- follow the sliding scale as followin-200- 2 units 201-250- 4 units 251-300- 6 units 301-350- 8 units 351-400- 10 units >400- 12 units Referrals: Gavin Benoit MD [Non Staff, Medical] - Gavin Roldan [Non Staff, Medical] - Dolly Mims MD [Staff Physician] - Corazon Borden MD [Staff Physician] - Disposition: HOME - Home Medications Comprehensive Discharge Medication List: Ambulatory Orders Carvedilol [Coreg -] 6.25 mg PO BID #60 tablet 06/22/20 Furosemide [Lasix -] 40 mg PO BID #60 tablet 06/22/20 Insulin Glargine,Hum.rec.anlog [Basaglar Kwikpen U-100] 30 unit SQ AM #1 insuln.pen 06/22/20 Insulin Sliding Scale [Novolog Vial Sliding Scale -] 1 vial SQ TIDAC units 06/22/20 Isosorbide Mononitrate [Imdur -] 30 mg PO DAILY #30 tab.sr.24h 06/22/20 Potassium Chloride [K-Dur -] 20 meq PO DAILY #30 tablet.er 06/22/20 hydrALAZINE HCL [Apresoline -] 10 mg PO TID #90 tablet 06/22/20 Prescription Drug Monitoring Program (I-STOP) results: I-STOP reviewed and no issues identified
[2020-06-22 14:56] VITALS: BP 128/80; PULSE 62; TEMP 97.6
--- NOTE | 2020-06-22 15:09 | CONS ---
DATE OF CONSULTATION: 06/22/2020 REFERRING PHYSICIAN: Jack Bhandari MD HISTORY: The patient is a 59-year-old male with a past medical history of CHF, noncompliant with medications, followed at [facility] by Dr. Benoit, recently admitted there for CHF, hypertension, insulin-dependent diabetes mellitus, admitted with 2- to 3-week history of increasing shortness of breath, dyspnea on exertion, orthopnea, and edema. On admission, the patient was noted to be in congestive heart failure. Chest x-ray revealed bilateral pulmonary vascular congestion. Of note is he was also noted to have elevated BUN and creatinine, unknown baseline. He was also noted to be hyponatremic. On admission, he was evaluated by cardiology. He was started on IV Lasix. The patient denies any history of tobacco use. He denies any history of occupational exposure to chemicals or fumes. He denies any history of COPD or asthma in the past. PAST MEDICAL HISTORY: Again includes congestive heart failure with noncompliance with medication, hypertension, insulin-dependent diabetes mellitus, likely chronic kidney disease. CURRENT MEDICATIONS: Include Coreg, Apresoline, NovoLog, Levemir, Lasix 40 b.i.d., Imdur, and K-Dur. REVIEW OF SYSTEMS: Positive dyspnea, positive chest discomfort. No fever, no chills, no cough, no hemoptysis, no abdominal pain. Positive lower extremity edema. PHYSICAL EXAMINATION: General: The patient is a well-developed, well-nourished male, awake, alert, currently in no acute distress. He is currently afebrile. Vital Signs: Blood pressure is 139/85. Respiratory rate is 20, and O2 saturation is 98% on nasal O2. HEENT: Exam is normocephalic, atraumatic. Neck: Supple. Heart: Regular, S1, S2. Chest: Bibasilar crackles. Abdomen: Soft. Bowel sounds are positive. Extremities: Bilateral lower extremity edema. LABORATORY: WBCs 9.7, hemoglobin 8.9, hematocrit 29.2, with a platelet count of 355,000. Bun 24, creatinine 2.5. Hemoglobin A1c is 14.3. COVID is not detected. Chest x-ray with cardiomegaly, pulmonary vascular congestion. BNP is 9595. IMPRESSION: 1. Dyspnea, chest pain secondary to acute on chronic congestive heart failure. 2. Hypertension. 3. Diabetes. 4. Hyponatremia. 5. Likely acute on chronic kidney injury. 6. Anemia. PLAN: Supplemental O2 to maintain O2 saturation 90% or greater. Continue Lasix, daily weights. Follow up chest x-rays, monitor electrolytes, renal function, sodium level. Monitor hemoglobin and hematocrit. Obtain echocardiogram. Stress compliance with medication. KT GARCIA M.D. [id number]
[2020-06-22] MEDS ORDERED: INSULIN (LEVEMIR) 100 UNITS/ML UNITS SQ SCH (22:00)
== END 2020-06-22 15:45 | disposition home or self-care (01) | DRG 291 ==
LOC: JER 08:56 → JERBED 12:01 → J4W 06-21 23:56
PROVIDERS: ADMIT Family Medicine; ATTEND Family Medicine
DX: I13.0 Hypertensive heart and chronic kidney disease with heart failure and stage 1 through stage 4 chronic kidney disease, or unspecified chronic kidney disease (principal); I50.23 Acute on chronic systolic (congestive) heart failure; N17.9 Acute kidney failure, unspecified; E87.1 Hypo-osmolality and hyponatremia; E11.65 Type 2 diabetes mellitus with hyperglycemia; E11.22 Type 2 diabetes mellitus with diabetic chronic kidney disease; N18.9 Chronic kidney disease, unspecified; Z91.14 Patient's other noncompliance with medication regimen; Z79.4 Long term (current) use of insulin; D63.1 Anemia in chronic kidney disease
CPT/HCPCS: 36415; 71045-TC-FY; 80053; 82962; 83036; 83735; 83880; 84484; 85025; 93005; 93010; 93306-TC; 97116-GP; 97161-GP; 99285-25; U0003

== ENCOUNTER 2021-07-30 16:08 | Inpatient (IN) | payer OTHER ==
[2021-07-30] MEDS ORDERED: ACETAMINOPHEN 1000 MG/100 ML VIAL IVPB ONE (16:54)
[2021-07-30] MEDS ORDERED: LACTATED RINGERS SOLUTION 1,000 ML IV STA (16:59)
[2021-07-30] MEDS ORDERED: LACTATED RINGERS SOLUTION 500 ML IV STA (17:02)
[2021-07-30] MEDS ORDERED: ACETAMINOPHEN INJECTION 100 ML IVPB ONE (17:26)
[2021-07-30 17:44] LABS: HEMATOCRIT 28.1 % (35.4-49); HEMOGLOBIN 8.6 GM/dL (11.7-16.9); MCH 27.6 pg (25.7-33.7); MCHC 30.5 g/dl (32.0-35.9); MEAN CELL VOLUME 90.3 fl (80-96); MEAN PLT VOLUME 11.5 fl (7.5-11.1); PLATELET COUNT 179 10^3/uL (134-434); RBC 3.11 M/mm3 (4.00-5.60); RDW 18.6 % (11.9-15.9); WHITE BLOOD COUNT 21.2 K/mm3 (4.0-10.0)
[2021-07-30 17:49] LABS: INR 0.99 (0.83-1.09); PROTHROMBIN TIME (PATIENT) 12.2 SEC (9.7-13.0)
[2021-07-30 17:52] LABS: ACTIVATED PTT 29.1 SECONDS (25.2-36.5)
[2021-07-30 17:57] LABS: URINE APPEARANCE CLEAR; URINE BILIRUBIN NEGATIVE (NEGATIVE); URINE COLOR YELLOW; URINE GLUCOSE (UA) 3+ (NEGATIVE); URINE KETONE NEGATIVE (NEGATIVE); URINE LEUK ESTERASE NEGATIVE (NEGATIVE); URINE NITRITE NEGATIVE (NEGATIVE); URINE PROTEIN 1+ (NEGATIVE)
[2021-07-30 17:58] LABS: VENOUS BASE EXCESS -2.5 mmol/L (-2-2); VENOUS O2 SATURATION 76.4 % (70-80); VENOUS PCO2 43.2 mmHg (38-52); VENOUS PH 7.346 (7.310-7.410)
[2021-07-30] MEDS: ALBUTEROL SO4 2.5/IPRATROPIUM 0.5 INH SOL 3 ML VIAL.NEB. NEB SCH ×4 (18:00→19:11)
[2021-07-30 18:02] LABS: CHLORIDE 80 mmol/L (98-107)
[2021-07-30 18:04] LABS: ALBUMIN 2.2 g/dl (3.4-5.0); BLOOD UREA NITROGEN 80.9 mg/dL (7-18); CALCIUM 8.6 mg/dL (8.5-10.1); CO2 21 mmol/L (21-32)
[2021-07-30 18:08] LABS: CREATININE 3.6 mg/dL (0.55-1.3); SGOT/AST 21 U/L (15-37); SGPT/ALT 40 U/L (13-61)
[2021-07-30 18:09] LABS: BILIRUBIN,TOTAL 2.3 mg/dL (0.2-1); TOT PROT 6.8 g/dl (6.4-8.2)
[2021-07-30 18:10] LABS: ALK PHOS 385 U/L (45-117)
[2021-07-30] MEDS ORDERED: AZITHROMYCIN IVPB 500 MG in DEXTROSE 5%-WATER - 250 ML IVPB ONE (18:19)
[2021-07-30] MEDS ORDERED: CEFTRIAXONE 1,000 MG in DEXTROSE 5%-WATER - 50 ML IVPB ONE (18:19)
[2021-07-30 18:31] LABS: ANISOCYTOSIS 2+; MACROCYTOSIS 0; PLATELET ESTIMATE NORMAL; TARGET CELLS 1+
[2021-07-30 18:47] LABS: ANION GAP 14 MMOL/L (8-16); GLUCOSE,RANDOM 1131 mg/dL (74-106); SODIUM 116 mmol/L (136-145)
[2021-07-30 18:52] LABS: URINE RBC 31.3 /uL (0-23.9); URINE WBC 10.7 /uL (0-25.8)
[2021-07-30] MEDS ORDERED: AZITHROMYCIN IVPB 500 MG/250 ML BAG IVPB ONE (18:52)
[2021-07-30] MEDS ORDERED: CEFTRIAXONE 1 GM/50 ML BAG ONE (18:52)
[2021-07-30 18:53] LABS: EPI CELLS 2.2 /uL (0-25.1); HYALINE CASTS 0.25 /uL (0-3.1); URINE BACTERIA 6.5 /uL (0-1359)
[2021-07-30] MEDS ORDERED: INSULIN REGULAR HUMAN 100 UNITS/ML *VIAL IVPUSH ONE (18:55)
[2021-07-30] MEDS ORDERED: LACTATED RINGERS SOLUTION 1000 ML INFUS.BAG IV ONE (19:35)
[2021-07-30] MEDS ORDERED: INSULIN REGULAR HUMAN 100 UNITS/ML *VIAL* (FOR IVP) IVPUSH ONE (20:09)
[2021-07-30] MEDS ORDERED: INSULIN REGULAR 100 UNITS in SODIUM CHLORIDE 99 ML IVPB SCH ×2 (20:15→22:23)
[2021-07-30] MEDS ORDERED: INSULIN REGULAR HUMAN 100 UNITS/ML *VIAL ONE (20:29)
[2021-07-30 21:39] LABS: CHLORIDE 83 mmol/L (98-107)
[2021-07-30 21:41] LABS: BLOOD UREA NITROGEN 78.7 mg/dL (7-18); CALCIUM 8.2 mg/dL (8.5-10.1); CO2 24 mmol/L (21-32)
[2021-07-30 21:44] LABS: CREATININE 3.5 mg/dL (0.55-1.3)
[2021-07-30 21:48] LABS: LACTIC ACID 2.7 mmol/L (0.4-2.0)
[2021-07-30 21:54] LABS: ANION GAP 11 MMOL/L (8-16); GLUCOSE,RANDOM 964 mg/dL (74-106); SODIUM 117 mmol/L (136-145)
[2021-07-30] MEDS ORDERED: SODIUM CHLORIDE 1,000 ML IV STA (22:36)
[2021-07-30] MEDS ORDERED: SODIUM CHLORIDE 1,000 ML with POTASSIUM CHLORIDE 30 MEQ IV SCH (23:15)
[2021-07-30] MEDS ORDERED: SODIUM CHLORIDE 1,000 ML IV SCH (23:15)
[2021-07-31 00:11] LABS: CHLORIDE 84 mmol/L (98-107)
[2021-07-31 00:12] LABS: CALCIUM 8.1 mg/dL (8.5-10.1)
[2021-07-31 00:13] LABS: BLOOD UREA NITROGEN 77.7 mg/dL (7-18); CO2 26 mmol/L (21-32)
[2021-07-31 00:16] LABS: CREATININE 3.6 mg/dL (0.55-1.3)
[2021-07-31 00:17] LABS: PHOSPHOROUS 3.8 mg/dL (2.5-4.9)
[2021-07-31] MEDS: INSULIN REGULAR 100 UNITS in SODIUM CHLORIDE 99 ML IVPB SCH ×2 (00:32→23:09)
[2021-07-31 01:05] LABS: ANION GAP 10 MMOL/L (8-16); GLUCOSE,RANDOM 880 mg/dL (74-106); LACTIC ACID 2.5 mmol/L (0.4-2.0)
[2021-07-31 01:15] LABS: SODIUM 120 mmol/L (136-145)
[2021-07-31] MEDS ORDERED: ACETAMINOPHEN 1000 MG/100 ML VIAL IVPB ONE (02:16)
[2021-07-31 03:18] LABS: CHLORIDE 89 mmol/L (98-107); SODIUM 122 mmol/L (136-145)
[2021-07-31 03:19] LABS: CALCIUM 8.1 mg/dL (8.5-10.1)
[2021-07-31 03:20] LABS: ANION GAP 11 MMOL/L (8-16); BLOOD UREA NITROGEN 78.8 mg/dL (7-18); CO2 22 mmol/L (21-32)
[2021-07-31 03:23] LABS: CREATININE 3.5 mg/dL (0.55-1.3)
[2021-07-31] MEDS ORDERED: POTASSIUM CHLORIDE IV SCH (03:30)
[2021-07-31] MEDS ORDERED: SODIUM CHLORIDE IV SCH (03:30)
[2021-07-31 04:11] LABS: GLUCOSE,RANDOM 660 mg/dL (74-106)
[2021-07-31 04:40] LABS: LACTIC ACID 2.8 mmol/L (0.4-2.0)
[2021-07-31 06:43] LABS: HEMATOCRIT 25.6 % (35.4-49); HEMOGLOBIN 8.3 GM/dL (11.7-16.9); MCH 27.4 pg (25.7-33.7); MCHC 32.6 g/dl (32.0-35.9); MEAN CELL VOLUME 84.3 fl (80-96); MEAN PLT VOLUME 10.8 fl (7.5-11.1); PLATELET COUNT 191 10^3/uL (134-434); RBC 3.04 M/mm3 (4.00-5.60); RDW 17.6 % (11.9-15.9)
[2021-07-31 06:55] LABS: BLOOD UREA NITROGEN 80.3 mg/dL (7-18)
[2021-07-31 06:56] LABS: MAGNESIUM 2.7 mg/dL (1.8-2.4)
[2021-07-31 06:59] LABS: CREATININE 3.4 mg/dL (0.55-1.3)
[2021-07-31] MEDS ORDERED: D5-1/2NS+20 MEQ KCL - 20 MEQ/1,000 ML INFUS.BAG IV SCH (07:15)
[2021-07-31] MEDS ORDERED: ACETAMINOPHEN 325 MG TABLET (FP) PO PRN (08:52)
[2021-07-31] MEDS ORDERED: DEXTROSE 5%-WATER - 50 ML IVPB ONE (09:10)
[2021-07-31] MEDS ORDERED: cefTRIAXone SODIUM 1 GM VIAL ONE (09:10)
[2021-07-31] MEDS: CEFTRIAXONE 1 GM in DEXTROSE 5%-WATER - 50 ML IVPB SCH (09:13)
[2021-07-31] MEDS: AZITHROMYCIN IVPB 500 MG/250 ML BAG IVPB SCH (09:14)
[2021-07-31] MEDS: ENOXAPARIN NA (PORCINE) 30 MG/0.3 ML DISP.SYRIN SQ SCH (09:14)
[2021-07-31 09:16] VITALS: BMI 28.1
[2021-07-31 09:17] LABS: ANISOCYTOSIS 2+; MACROCYTOSIS 0; PLATELET ESTIMATE NORMAL
[2021-07-31] MEDS ORDERED: PT OWN MED DRAWER 7, Y5N ONE (09:49)
[2021-07-31] MEDS: ESCITALOPRAM OXALATE 20 MG TABLET PO SCH (09:50)
[2021-07-31] MEDS: CARVEDILOL 25 MG TABLET (FP) PO SCH ×2 (09:50→21:14)
[2021-07-31] MEDS: MUPIROCIN 2% TOPICAL OINTMENT FOR DECOLONIZATION NS SCH ×2 (09:50→21:14)
[2021-07-31] MEDS: amLODIPine BESYLATE 5 MG TABLET (FP) PO SCH (09:50)
[2021-07-31] MEDS: ISOSORBIDE MONONITRATE 30 MG TAB.SR.24H (FP) PO SCH (09:50)
[2021-07-31] MEDS ORDERED: MUPIROCIN 2% TOPICAL OINTMENT FOR DECOLONIZATION NS SCH (10:00)
[2021-07-31] MEDS ORDERED: ENOXAPARIN NA (PORCINE) 30 MG/0.3 ML DISP.SYRIN SQ SCH (10:00)
[2021-07-31] MEDS ORDERED: D5-NS + 20 MEQ KCL - 20 MEQ/1,000 ML INFUS.BAG IV SCH (10:30)
[2021-07-31] MEDS: risperiDONE 1 MG TABLET PO SCH (14:02)
[2021-07-31] MEDS: GABAPENTIN 300 MG CAPSULE PO SCH ×2 (14:05→21:15)
[2021-07-31 15:54] LABS: CREATININE 3.5 mg/dL (0.55-1.3)
[2021-07-31] MEDS: hydrALAZINE HCL 25 MG TABLET (FP) PO SCH ×2 (17:35→21:14)
[2021-07-31] MEDS: CHLORHEXIDINE GLUCONATE 4% CLEANSER FOR DECOLONIZATION TP SCH (21:14)
[2021-07-31] MEDS: traZODone HCL 50 MG TABLET (FP) PO SCH (21:14)
[2021-07-31] MEDS: ATORVASTATIN CA 20 MG TABLET (FP) PO SCH (21:15)
[2021-07-31] MEDS: INSULIN (LEVEMIR) 100 UNITS/ML UNITS SQ SCH (21:47)
[2021-07-31] MEDS: SODIUM CHLORIDE 1,000 ML IV SCH (21:49)
[2021-07-31] MEDS ORDERED: INSULIN (LEVEMIR) 100 UNITS/ML UNITS SQ SCH (22:00)
[2021-07-31] MEDS ORDERED: CHLORHEXIDINE GLUCONATE 4% CLEANSER FOR DECOLONIZATION TP SCH (22:00)
[2021-08-01] MEDS: INSULIN SLIDING SCALE (NOVOLOG) 1 VIAL SQ SCH ×6 (00:10→20:34)
[2021-08-01] MEDS: GABAPENTIN 300 MG CAPSULE PO SCH ×3 (05:09→21:55)
[2021-08-01] MEDS: hydrALAZINE HCL 25 MG TABLET (FP) PO SCH ×3 (05:09→21:54)
[2021-08-01] MEDS: INSULIN (LEVEMIR) 100 UNITS/ML UNITS SQ SCH ×2 (06:18→21:55)
[2021-08-01] MEDS: LEVOTHYROXINE NA 25 MCG TABLET (FP) PO SCH (06:18)
[2021-08-01 07:09] LABS: BLOOD UREA NITROGEN 95.1 mg/dL (7-18); MAGNESIUM 2.8 mg/dL (1.8-2.4)
[2021-08-01 07:11] LABS: HEMATOCRIT 23.5 % (35.4-49); HEMOGLOBIN 7.9 GM/dL (11.7-16.9); MCH 27.8 pg (25.7-33.7); MCHC 33.4 g/dl (32.0-35.9); MEAN CELL VOLUME 83.3 fl (80-96); MEAN PLT VOLUME 10.6 fl (7.5-11.1); PLATELET COUNT 207 10^3/uL (134-434); RBC 2.83 M/mm3 (4.00-5.60); RDW 17.6 % (11.9-15.9); WHITE BLOOD COUNT 20.4 K/mm3 (4.0-10.0)
[2021-08-01 07:13] LABS: CREATININE 3.2 mg/dL (0.55-1.3)
[2021-08-01] MEDS ORDERED: cefTRIAXone SODIUM 1 GM VIAL ONE (09:13)
[2021-08-01] MEDS ORDERED: DEXTROSE 5%-WATER - 50 ML IVPB ONE (09:14)
[2021-08-01] MEDS: CEFTRIAXONE 1 GM in DEXTROSE 5%-WATER - 50 ML IVPB SCH (09:15)
[2021-08-01] MEDS: ENOXAPARIN NA (PORCINE) 30 MG/0.3 ML DISP.SYRIN SQ SCH (09:16)
[2021-08-01] MEDS: ISOSORBIDE MONONITRATE 30 MG TAB.SR.24H (FP) PO SCH (09:17)
[2021-08-01] MEDS: MUPIROCIN 2% TOPICAL OINTMENT FOR DECOLONIZATION NS SCH ×2 (09:17→21:54)
[2021-08-01] MEDS: ESCITALOPRAM OXALATE 20 MG TABLET PO SCH (09:17)
[2021-08-01] MEDS: CARVEDILOL 25 MG TABLET (FP) PO SCH ×2 (09:17→21:54)
[2021-08-01] MEDS: AZITHROMYCIN IVPB 500 MG/250 ML BAG IVPB SCH (09:17)
[2021-08-01] MEDS: amLODIPine BESYLATE 5 MG TABLET (FP) PO SCH (09:17)
[2021-08-01] MEDS: risperiDONE 1 MG TABLET PO SCH (11:53)
[2021-08-01] MEDS: SODIUM CHLORIDE 1,000 ML IV SCH (17:14)
[2021-08-01] MEDS: CHLORHEXIDINE GLUCONATE 4% CLEANSER FOR DECOLONIZATION TP SCH (21:54)
[2021-08-01] MEDS: traZODone HCL 50 MG TABLET (FP) PO SCH (21:54)
[2021-08-01] MEDS: ATORVASTATIN CA 20 MG TABLET (FP) PO SCH (21:55)
[2021-08-02] MEDS: INSULIN SLIDING SCALE (NOVOLOG) 1 VIAL SQ SCH ×6 (00:11→19:55)
[2021-08-02] MEDS: hydrALAZINE HCL 25 MG TABLET (FP) PO SCH ×3 (05:33→21:16)
[2021-08-02] MEDS: GABAPENTIN 300 MG CAPSULE PO SCH ×3 (05:33→21:16)
[2021-08-02] MEDS: INSULIN (LEVEMIR) 100 UNITS/ML UNITS SQ SCH ×2 (06:11→21:17)
[2021-08-02 06:42] LABS: HEMATOCRIT 23.5 % (35.4-49); HEMOGLOBIN 7.8 GM/dL (11.7-16.9); MCH 27.6 pg (25.7-33.7); MCHC 33.1 g/dl (32.0-35.9); MEAN CELL VOLUME 83.4 fl (80-96); MEAN PLT VOLUME 10.2 fl (7.5-11.1); PLATELET COUNT 232 10^3/uL (134-434); RBC 2.82 M/mm3 (4.00-5.60); RDW 17.7 % (11.9-15.9); WHITE BLOOD COUNT 13.4 K/mm3 (4.0-10.0)
[2021-08-02 07:02] LABS: CALCIUM 8.3 mg/dL (8.5-10.1); MAGNESIUM 2.8 mg/dL (1.8-2.4)
[2021-08-02 07:06] LABS: BLOOD UREA NITROGEN 97.2 mg/dL (7-18)
[2021-08-02 07:07] LABS: BILIRUBIN,TOTAL 0.7 mg/dL (0.2-1); TOT PROT 5.8 g/dl (6.4-8.2)
[2021-08-02 07:09] LABS: CREATININE 2.5 mg/dL (0.55-1.3)
[2021-08-02 07:33] LABS: ALBUMIN 1.6 g/dl (3.4-5.0)
[2021-08-02] MEDS ORDERED: cefTRIAXone SODIUM 1 GM VIAL ONE (08:42)
[2021-08-02] MEDS ORDERED: DEXTROSE 5%-WATER - 50 ML IVPB ONE (08:43)
[2021-08-02] MEDS: MUPIROCIN 2% TOPICAL OINTMENT FOR DECOLONIZATION NS SCH (09:09)
[2021-08-02] MEDS: ISOSORBIDE MONONITRATE 30 MG TAB.SR.24H (FP) PO SCH ×2 (09:13→09:29)
[2021-08-02] MEDS: ESCITALOPRAM OXALATE 20 MG TABLET PO SCH ×2 (09:13→09:29)
[2021-08-02] MEDS: CARVEDILOL 25 MG TABLET (FP) PO SCH ×3 (09:13→21:16)
[2021-08-02] MEDS: amLODIPine BESYLATE 5 MG TABLET (FP) PO SCH ×2 (09:14→09:29)
[2021-08-02] MEDS: ENOXAPARIN NA (PORCINE) 30 MG/0.3 ML DISP.SYRIN SQ SCH ×2 (09:14→09:33)
[2021-08-02] MEDS: CEFTRIAXONE 1 GM in DEXTROSE 5%-WATER - 50 ML IVPB SCH ×2 (09:15→09:27)
[2021-08-02] MEDS: AZITHROMYCIN IVPB 500 MG/250 ML BAG IVPB SCH ×2 (09:16→09:28)
[2021-08-02] MEDS: risperiDONE 1 MG TABLET PO SCH (09:36)
[2021-08-02] MEDS ORDERED: PT OWN MED DRAWER 7, Y5N ONE (10:46)
[2021-08-02] MEDS ORDERED: SODIUM CHLORIDE 1,000 ML IV SCH (16:35)
[2021-08-02] MEDS ORDERED: INSULIN (NOVOLOG) ASPART 100 UNITS/ML 10ML VIAL ONE (19:48)
[2021-08-02] MEDS: ATORVASTATIN CA 20 MG TABLET (FP) PO SCH (21:16)
[2021-08-02] MEDS: traZODone HCL 50 MG TABLET (FP) PO SCH (21:16)
[2021-08-03] MEDS: INSULIN SLIDING SCALE (NOVOLOG) 1 VIAL SQ SCH ×6 (00:54→20:17)
[2021-08-03] MEDS: hydrALAZINE HCL 25 MG TABLET (FP) PO SCH ×3 (06:31→21:07)
[2021-08-03] MEDS: GABAPENTIN 300 MG CAPSULE PO SCH ×3 (06:31→21:07)
[2021-08-03] MEDS: LEVOTHYROXINE NA 25 MCG TABLET (FP) PO SCH (06:31)
[2021-08-03] MEDS: INSULIN (LEVEMIR) 100 UNITS/ML UNITS SQ SCH ×2 (06:32→21:07)
[2021-08-03] MEDS ORDERED: INSULIN (NOVOLOG) ASPART 100 UNITS/ML 10ML VIAL ONE ×4 (06:38→19:51)
[2021-08-03 07:49] LABS: HEMATOCRIT 23.1 % (35.4-49); HEMOGLOBIN 7.7 GM/dL (11.7-16.9); MCH 27.3 pg (25.7-33.7); MCHC 33.1 g/dl (32.0-35.9); MEAN CELL VOLUME 82.5 fl (80-96); MEAN PLT VOLUME 9.3 fl (7.5-11.1); PLATELET COUNT 262 10^3/uL (134-434); RDW 17.6 % (11.9-15.9); WHITE BLOOD COUNT 12.1 K/mm3 (4.0-10.0)
[2021-08-03 08:14] LABS: CALCIUM 8.2 mg/dL (8.5-10.1)
[2021-08-03 08:15] LABS: BLOOD UREA NITROGEN 91.2 mg/dL (7-18)
[2021-08-03] MEDS ORDERED: PT OWN MED DRAWER 7, Y5N ONE ×2 (09:19→14:04)
[2021-08-03] MEDS ORDERED: ESCITALOPRAM OXALATE 10 MG TABLET ONE (09:19)
[2021-08-03] MEDS: CARVEDILOL 25 MG TABLET (FP) PO SCH ×2 (09:23→21:07)
[2021-08-03] MEDS: ESCITALOPRAM OXALATE 20 MG TABLET PO SCH (09:24)
[2021-08-03] MEDS: ISOSORBIDE MONONITRATE 30 MG TAB.SR.24H (FP) PO SCH (09:24)
[2021-08-03] MEDS: amLODIPine BESYLATE 5 MG TABLET (FP) PO SCH (09:24)
[2021-08-03] MEDS: risperiDONE 1 MG TABLET PO SCH (09:25)
[2021-08-03] MEDS: AZITHROMYCIN IVPB 500 MG/250 ML BAG IVPB SCH (09:25)
[2021-08-03] MEDS: ENOXAPARIN NA (PORCINE) 30 MG/0.3 ML DISP.SYRIN SQ SCH (09:29)
[2021-08-03 10:39] LABS: ANISOCYTOSIS 1+; MACROCYTOSIS 0; OVALOCYTE 1+; PLATELET ESTIMATE NORMAL; TARGET CELLS 1+; TOXIC GRANULATION 1+
[2021-08-03] MEDS: ATORVASTATIN CA 20 MG TABLET (FP) PO SCH (21:07)
[2021-08-03] MEDS: traZODone HCL 50 MG TABLET (FP) PO SCH (21:07)
[2021-08-04] MEDS: INSULIN SLIDING SCALE (NOVOLOG) 1 VIAL SQ SCH ×5 (00:38→18:03)
[2021-08-04] MEDS: GABAPENTIN 300 MG CAPSULE PO SCH ×3 (06:32→21:58)
[2021-08-04] MEDS: LEVOTHYROXINE NA 25 MCG TABLET (FP) PO SCH ×2 (06:32→08:07)
[2021-08-04] MEDS: hydrALAZINE HCL 25 MG TABLET (FP) PO SCH ×3 (06:32→21:58)
[2021-08-04] MEDS: INSULIN (LEVEMIR) 100 UNITS/ML UNITS SQ SCH ×2 (06:33→21:59)
[2021-08-04] MEDS ORDERED: INSULIN (NOVOLOG) ASPART 100 UNITS/ML 10ML VIAL ONE ×2 (06:53→09:23)
[2021-08-04] MEDS ORDERED: ESCITALOPRAM OXALATE 10 MG TABLET ONE (09:22)
[2021-08-04] MEDS ORDERED: PT OWN MED DRAWER 7, Y5N ONE (09:23)
[2021-08-04] MEDS: ISOSORBIDE MONONITRATE 30 MG TAB.SR.24H (FP) PO SCH (09:28)
[2021-08-04] MEDS: amLODIPine BESYLATE 5 MG TABLET (FP) PO SCH (09:28)
[2021-08-04] MEDS: ENOXAPARIN NA (PORCINE) 30 MG/0.3 ML DISP.SYRIN SQ SCH (09:28)
[2021-08-04] MEDS: risperiDONE 1 MG TABLET PO SCH (09:29)
[2021-08-04] MEDS: CARVEDILOL 25 MG TABLET (FP) PO SCH ×2 (09:29→21:59)
[2021-08-04] MEDS: ESCITALOPRAM OXALATE 20 MG TABLET PO SCH (09:29)
[2021-08-04] MEDS: AZITHROMYCIN IVPB 500 MG/250 ML BAG IVPB SCH (09:30)
[2021-08-04 12:52] LABS: HEMATOCRIT 22.5 % (35.4-49); HEMOGLOBIN 7.4 GM/dL (11.7-16.9); MCH 27.6 pg (25.7-33.7); MCHC 32.6 g/dl (32.0-35.9); MEAN CELL VOLUME 84.5 fl (80-96); MEAN PLT VOLUME 9.3 fl (7.5-11.1); PLATELET COUNT 307 10^3/uL (134-434); RBC 2.66 M/mm3 (4.00-5.60); RDW 18.2 % (11.9-15.9); WHITE BLOOD COUNT 13.1 K/mm3 (4.0-10.0)
[2021-08-04 13:15] LABS: CALCIUM 7.9 mg/dL (8.5-10.1)
[2021-08-04 13:16] LABS: ALBUMIN 1.7 g/dl (3.4-5.0); BLOOD UREA NITROGEN 82.6 mg/dL (7-18)
[2021-08-04 13:19] LABS: CREATININE 1.8 mg/dL (0.55-1.3)
[2021-08-04 13:21] LABS: BILIRUBIN,TOTAL 0.6 mg/dL (0.2-1)
[2021-08-04 13:24] LABS: N-TERMINAL BNP 9486.2 pg/ml (5-125)
[2021-08-04] MEDS: traZODone HCL 50 MG TABLET (FP) PO SCH (21:58)
[2021-08-04] MEDS: ATORVASTATIN CA 20 MG TABLET (FP) PO SCH (21:58)
[2021-08-04] MEDS ORDERED: risperiDONE 1 MG TABLET PO SCH (22:00)
[2021-08-05] MEDS: hydrALAZINE HCL 25 MG TABLET (FP) PO SCH ×3 (06:45→21:42)
[2021-08-05] MEDS: GABAPENTIN 300 MG CAPSULE PO SCH ×3 (06:46→21:42)
[2021-08-05] MEDS: INSULIN SLIDING SCALE (NOVOLOG) 1 VIAL SQ SCH ×2 (06:50→17:26)
[2021-08-05] MEDS: INSULIN (LEVEMIR) 100 UNITS/ML UNITS SQ SCH ×2 (06:50→21:44)
[2021-08-05] MEDS: LEVOTHYROXINE NA 25 MCG TABLET (FP) PO SCH (06:56)
[2021-08-05 08:40] LABS: HEMOGLOBIN 7.8 GM/dL (11.7-16.9); MCH 28.2 pg (25.7-33.7); MCHC 33.8 g/dl (32.0-35.9); MEAN CELL VOLUME 83.6 fl (80-96); MEAN PLT VOLUME 9.2 fl (7.5-11.1); PLATELET COUNT 325 10^3/uL (134-434); RBC 2.75 M/mm3 (4.00-5.60); WHITE BLOOD COUNT 8.5 K/mm3 (4.0-10.0)
[2021-08-05 09:04] LABS: ALBUMIN 1.8 g/dl (3.4-5.0); CALCIUM 8.1 mg/dL (8.5-10.1)
[2021-08-05] MEDS ORDERED: ESCITALOPRAM OXALATE 10 MG TABLET ONE (09:04)
[2021-08-05] MEDS ORDERED: INSULIN (LEVEMIR) 100 UNITS/ML UNITS SQ ONE (09:04)
[2021-08-05 09:05] LABS: BLOOD UREA NITROGEN 82.2 mg/dL (7-18)
[2021-08-05 09:08] LABS: CREATININE 1.7 mg/dL (0.55-1.3)
[2021-08-05 09:09] LABS: BILIRUBIN,TOTAL 0.6 mg/dL (0.2-1); TOT PROT 6.3 g/dl (6.4-8.2)
[2021-08-05] MEDS: AZITHROMYCIN IVPB 500 MG/250 ML BAG IVPB SCH (09:14)
[2021-08-05] MEDS: ESCITALOPRAM OXALATE 20 MG TABLET PO SCH (09:15)
[2021-08-05] MEDS: ENOXAPARIN NA (PORCINE) 30 MG/0.3 ML DISP.SYRIN SQ SCH (09:15)
[2021-08-05] MEDS: ISOSORBIDE MONONITRATE 30 MG TAB.SR.24H (FP) PO SCH (09:15)
[2021-08-05] MEDS: amLODIPine BESYLATE 5 MG TABLET (FP) PO SCH (09:15)
[2021-08-05] MEDS: CARVEDILOL 25 MG TABLET (FP) PO SCH ×2 (09:15→21:42)
[2021-08-05 09:50] LABS: ANISOCYTOSIS 1+; MACROCYTOSIS 0; OVALOCYTE 1+; PLATELET ESTIMATE NORMAL
[2021-08-05] MEDS ORDERED: IRON SUCROSE INJECTION 200 MG in SODIUM CHLORIDE 90 ML IVPB ONE (10:15)
[2021-08-05] MEDS: ALBUTEROL SO4 2.5/IPRATROPIUM 0.5 INH SOL 3 ML VIAL.NEB. NEB SCH ×2 (17:30→20:35)
[2021-08-05] MEDS: risperiDONE 1 MG TABLET PO SCH (21:41)
[2021-08-05] MEDS: ATORVASTATIN CA 20 MG TABLET (FP) PO SCH (21:42)
[2021-08-05] MEDS: traZODone HCL 50 MG TABLET (FP) PO SCH (21:42)
[2021-08-06] MEDS: hydrALAZINE HCL 25 MG TABLET (FP) PO SCH ×4 (05:46→22:05)
[2021-08-06] MEDS: GABAPENTIN 300 MG CAPSULE PO SCH ×4 (05:47→22:04)
[2021-08-06] MEDS: INSULIN SLIDING SCALE (NOVOLOG) 1 VIAL SQ SCH ×2 (06:25→16:24)
[2021-08-06] MEDS: INSULIN (LEVEMIR) 100 UNITS/ML UNITS SQ SCH ×2 (06:25→22:05)
[2021-08-06] MEDS: LEVOTHYROXINE NA 25 MCG TABLET (FP) PO SCH ×2 (06:26→07:15)
[2021-08-06] MEDS: ALBUTEROL SO4 2.5/IPRATROPIUM 0.5 INH SOL 3 ML VIAL.NEB. NEB SCH ×3 (07:30→15:54)
[2021-08-06 08:46] LABS: BASO % 0.4 % (0-2.0); EOS % 3.1 % (0-4.5); HEMATOCRIT 24.4 % (35.4-49); HEMOGLOBIN 8.2 GM/dL (11.7-16.9); LYMPH % 12.4 % (8-40); MCH 28.3 pg (25.7-33.7); MCHC 33.5 g/dl (32.0-35.9); MEAN CELL VOLUME 84.7 fl (80-96); MONO % 10.4 % (3.8-10.2); NEUT % 73.7 % (42.8-82.8); PLATELET COUNT 375 10^3/uL (134-434); RBC 2.88 M/mm3 (4.00-5.60); WHITE BLOOD COUNT 7.8 K/mm3 (4.0-10.0)
[2021-08-06 09:11] LABS: CALCIUM 8.2 mg/dL (8.5-10.1)
[2021-08-06 09:12] LABS: ALBUMIN 1.9 g/dl (3.4-5.0); BLOOD UREA NITROGEN 74.3 mg/dL (7-18)
[2021-08-06 09:14] LABS: CREATININE 1.6 mg/dL (0.55-1.3)
[2021-08-06 09:15] LABS: BILIRUBIN,TOTAL 0.6 mg/dL (0.2-1); TOT PROT 6.7 g/dl (6.4-8.2)
[2021-08-06] MEDS ORDERED: ESCITALOPRAM OXALATE 10 MG TABLET ONE (09:43)
[2021-08-06] MEDS ORDERED: PT OWN MED DRAWER 7, Y5N ONE ×2 (09:43→11:47)
[2021-08-06] MEDS: CARVEDILOL 25 MG TABLET (FP) PO SCH ×2 (09:45→22:05)
[2021-08-06] MEDS: ISOSORBIDE MONONITRATE 30 MG TAB.SR.24H (FP) PO SCH (09:45)
[2021-08-06] MEDS: ENOXAPARIN NA (PORCINE) 30 MG/0.3 ML DISP.SYRIN SQ SCH (09:45)
[2021-08-06] MEDS: amLODIPine BESYLATE 5 MG TABLET (FP) PO SCH (09:45)
[2021-08-06] MEDS: ESCITALOPRAM OXALATE 20 MG TABLET PO SCH (09:46)
[2021-08-06] MEDS ORDERED: SODIUM POLYSTYRENE SULFONATE 15 GM/60 ML BOTTLE PO ONE (14:30)
[2021-08-06] MEDS: traZODone HCL 50 MG TABLET (FP) PO SCH (22:04)
[2021-08-06] MEDS: ATORVASTATIN CA 20 MG TABLET (FP) PO SCH (22:05)
[2021-08-06] MEDS: risperiDONE 1 MG TABLET PO SCH (22:05)
[2021-08-07] MEDS: GABAPENTIN 300 MG CAPSULE PO SCH ×3 (06:40→22:07)
[2021-08-07] MEDS: hydrALAZINE HCL 25 MG TABLET (FP) PO SCH ×3 (06:40→22:07)
[2021-08-07] MEDS: INSULIN SLIDING SCALE (NOVOLOG) 1 VIAL SQ SCH ×2 (06:49→16:51)
[2021-08-07] MEDS: INSULIN (LEVEMIR) 100 UNITS/ML UNITS SQ SCH (06:49)
[2021-08-07] MEDS: LEVOTHYROXINE NA 25 MCG TABLET (FP) PO SCH (07:09)
[2021-08-07] MEDS: ALBUTEROL SO4 2.5/IPRATROPIUM 0.5 INH SOL 3 ML VIAL.NEB. NEB SCH ×4 (07:21→20:47)
[2021-08-07 09:46] LABS: BASO % 0.2 % (0-2.0); HEMATOCRIT 25.1 % (35.4-49); HEMOGLOBIN 8.1 GM/dL (11.7-16.9); LYMPH % 7.3 % (8-40); MCH 27.3 pg (25.7-33.7); MEAN CELL VOLUME 85.2 fl (80-96); MEAN PLT VOLUME 8.8 fl (7.5-11.1); MONO % 7.4 % (3.8-10.2); NEUT % 83.1 % (42.8-82.8); PLATELET COUNT 389 10^3/uL (134-434); RBC 2.95 M/mm3 (4.00-5.60); RDW 17.9 % (11.9-15.9); WHITE BLOOD COUNT 11.2 K/mm3 (4.0-10.0)
[2021-08-07] MEDS ORDERED: ESCITALOPRAM OXALATE 10 MG TABLET ONE (09:46)
[2021-08-07] MEDS: ENOXAPARIN NA (PORCINE) 30 MG/0.3 ML DISP.SYRIN SQ SCH (09:47)
[2021-08-07] MEDS: amLODIPine BESYLATE 5 MG TABLET (FP) PO SCH (09:47)
[2021-08-07] MEDS: CARVEDILOL 25 MG TABLET (FP) PO SCH ×2 (09:47→22:08)
[2021-08-07] MEDS: ISOSORBIDE MONONITRATE 30 MG TAB.SR.24H (FP) PO SCH (09:47)
[2021-08-07] MEDS: ESCITALOPRAM OXALATE 20 MG TABLET PO SCH (09:48)
[2021-08-07 09:58] LABS: CHLORIDE 112 mmol/L (98-107); SODIUM 140 mmol/L (136-145)
[2021-08-07 10:16] LABS: BLOOD UREA NITROGEN 69.5 mg/dL (7-18); GLUCOSE,RANDOM 92 mg/dL (74-106)
[2021-08-07 10:17] LABS: ALK PHOS 497 U/L (45-117); BILIRUBIN,TOTAL 0.7 mg/dL (0.2-1); CALCIUM 8.3 mg/dL (8.5-10.1); CO2 22 mmol/L (21-32); CREATININE 1.6 mg/dL (0.55-1.3); SGOT/AST 46 U/L (15-37); SGPT/ALT 63 U/L (13-61); TOT PROT 6.9 g/dl (6.4-8.2)
[2021-08-07] MEDS: SODIUM ZIRCONIUM CYCLOSILICATE (LOKELMA) 5 GM PACKET PO SCH (13:38)
[2021-08-07] MEDS: ACETAMINOPHEN 325 MG TABLET (FP) PO PRN (20:17)
[2021-08-07] MEDS: ATORVASTATIN CA 20 MG TABLET (FP) PO SCH (22:07)
[2021-08-07] MEDS: risperiDONE 1 MG TABLET PO SCH (22:07)
[2021-08-07] MEDS: traZODone HCL 50 MG TABLET (FP) PO SCH (22:07)
[2021-08-08] MEDS: ACETAMINOPHEN 325 MG TABLET (FP) PO PRN (06:53)
[2021-08-08] MEDS: LEVOTHYROXINE NA 25 MCG TABLET (FP) PO SCH (06:53)
[2021-08-08] MEDS: hydrALAZINE HCL 25 MG TABLET (FP) PO SCH ×3 (06:53→22:33)
[2021-08-08] MEDS: GABAPENTIN 300 MG CAPSULE PO SCH ×3 (06:53→22:33)
[2021-08-08] MEDS: INSULIN SLIDING SCALE (NOVOLOG) 1 VIAL SQ SCH ×2 (06:54→16:42)
[2021-08-08] MEDS: INSULIN (LEVEMIR) 100 UNITS/ML UNITS SQ SCH (06:55)
[2021-08-08] MEDS ORDERED: INSULIN (LEVEMIR) 100 UNITS/ML UNITS SQ SCH (07:00)
[2021-08-08] MEDS: ALBUTEROL SO4 2.5/IPRATROPIUM 0.5 INH SOL 3 ML VIAL.NEB. NEB SCH ×5 (07:37→20:30)
[2021-08-08] MEDS ORDERED: INSULIN (NOVOLOG) ASPART 100 UNITS/ML 10ML VIAL ONE ×2 (08:37→16:36)
[2021-08-08] MEDS ORDERED: INSULIN (LEVEMIR) 100 UNITS/ML UNITS SQ ONE (08:37)
[2021-08-08 09:04] LABS: BASO % 0.5 % (0-2.0); EOS % 1.6 % (0-4.5); HEMATOCRIT 23.4 % (35.4-49); HEMOGLOBIN 7.8 GM/dL (11.7-16.9); LYMPH % 7.3 % (8-40); MCHC 33.1 g/dl (32.0-35.9); MEAN CELL VOLUME 84.6 fl (80-96); MEAN PLT VOLUME 8.6 fl (7.5-11.1); MONO % 7.2 % (3.8-10.2); NEUT % 83.4 % (42.8-82.8); PLATELET COUNT 384 10^3/uL (134-434); RBC 2.76 M/mm3 (4.00-5.60); RDW 17.8 % (11.9-15.9); WHITE BLOOD COUNT 9.7 K/mm3 (4.0-10.0)
[2021-08-08 09:27] LABS: CALCIUM 8.4 mg/dL (8.5-10.1)
[2021-08-08 09:28] LABS: BLOOD UREA NITROGEN 59.6 mg/dL (7-18)
[2021-08-08 09:31] LABS: CREATININE 1.5 mg/dL (0.55-1.3)
[2021-08-08 09:33] LABS: BILIRUBIN,TOTAL 0.9 mg/dL (0.2-1); TOT PROT 6.8 g/dl (6.4-8.2)
[2021-08-08] MEDS ORDERED: ESCITALOPRAM OXALATE 10 MG TABLET ONE (09:44)
[2021-08-08] MEDS ORDERED: PT OWN MED DRAWER 7, Y5N ONE (09:45)
[2021-08-08] MEDS: ISOSORBIDE MONONITRATE 30 MG TAB.SR.24H (FP) PO SCH (09:49)
[2021-08-08] MEDS: CARVEDILOL 25 MG TABLET (FP) PO SCH ×2 (09:49→22:33)
[2021-08-08] MEDS: ESCITALOPRAM OXALATE 20 MG TABLET PO SCH (09:50)
[2021-08-08] MEDS: SODIUM ZIRCONIUM CYCLOSILICATE (LOKELMA) 5 GM PACKET PO SCH (09:50)
[2021-08-08] MEDS: amLODIPine BESYLATE 5 MG TABLET (FP) PO SCH (09:50)
[2021-08-08] MEDS: ENOXAPARIN NA (PORCINE) 30 MG/0.3 ML DISP.SYRIN SQ SCH (09:50)
[2021-08-08] MEDS: SODIUM CHLORIDE 0.45% 1,000 ML IV SCH (14:45)
[2021-08-08] MEDS: SIMETHICONE 80 MG TAB.CHEW (FP) PO PRN (17:35)
[2021-08-08] MEDS: risperiDONE 1 MG TABLET PO SCH (22:33)
[2021-08-08] MEDS: traZODone HCL 50 MG TABLET (FP) PO SCH (22:33)
[2021-08-09] MEDS: SIMETHICONE 80 MG TAB.CHEW (FP) PO PRN (00:17)
[2021-08-09] MEDS ORDERED: ALBUTEROL SO4 2.5/IPRATROPIUM 0.5 INH SOL 3 ML VIAL.NEB. NEB ONE (06:33)
[2021-08-09] MEDS: INSULIN SLIDING SCALE (NOVOLOG) 1 VIAL SQ SCH ×2 (06:58→16:43)
[2021-08-09] MEDS: hydrALAZINE HCL 25 MG TABLET (FP) PO SCH ×3 (06:58→22:12)
[2021-08-09] MEDS: GABAPENTIN 300 MG CAPSULE PO SCH ×3 (06:58→22:12)
[2021-08-09] MEDS: ACETAMINOPHEN 325 MG TABLET (FP) PO PRN (06:58)
[2021-08-09] MEDS: LEVOTHYROXINE NA 25 MCG TABLET (FP) PO SCH (06:58)
[2021-08-09] MEDS: INSULIN (LEVEMIR) 100 UNITS/ML UNITS SQ SCH (06:59)
[2021-08-09] MEDS: ALBUTEROL SO4 2.5/IPRATROPIUM 0.5 INH SOL 3 ML VIAL.NEB. NEB SCH ×4 (07:15→20:05)
[2021-08-09] MEDS ORDERED: ESCITALOPRAM OXALATE 10 MG TABLET ONE (09:00)
[2021-08-09 09:52] LABS: EOS % 1.6 % (0-4.5); HEMATOCRIT 22.4 % (35.4-49); HEMOGLOBIN 7.5 GM/dL (11.7-16.9); LYMPH % 11.9 % (8-40); MCH 28.7 pg (25.7-33.7); MCHC 33.5 g/dl (32.0-35.9); MEAN CELL VOLUME 85.5 fl (80-96); MEAN PLT VOLUME 9.2 fl (7.5-11.1); MONO % 6.6 % (3.8-10.2); NEUT % 78.9 % (42.8-82.8); PLATELET COUNT 369 10^3/uL (134-434); RBC 2.62 M/mm3 (4.00-5.60); RDW 17.7 % (11.9-15.9); WHITE BLOOD COUNT 8.1 K/mm3 (4.0-10.0)
[2021-08-09] MEDS: amLODIPine BESYLATE 5 MG TABLET (FP) PO SCH (10:06)
[2021-08-09] MEDS: ISOSORBIDE MONONITRATE 30 MG TAB.SR.24H (FP) PO SCH (10:08)
[2021-08-09] MEDS: ENOXAPARIN NA (PORCINE) 30 MG/0.3 ML DISP.SYRIN SQ SCH (10:10)
[2021-08-09] MEDS: ESCITALOPRAM OXALATE 20 MG TABLET PO SCH (10:10)
[2021-08-09 10:21] LABS: BLOOD UREA NITROGEN 58.5 mg/dL (7-18); CALCIUM 8.4 mg/dL (8.5-10.1); CREATININE 1.4 mg/dL (0.55-1.3)
[2021-08-09 10:23] LABS: TOT PROT 6.8 g/dl (6.4-8.2)
[2021-08-09 10:29] LABS: BILIRUBIN,TOTAL 0.9 mg/dL (0.2-1)
[2021-08-09] MEDS: CARVEDILOL 25 MG TABLET (FP) PO SCH ×2 (10:49→22:12)
[2021-08-09] MEDS ORDERED: SODIUM ZIRCONIUM CYCLOSILICATE (LOKELMA) 5 GM PACKET PO SCH ×2 (12:00→13:00)
[2021-08-09] MEDS ORDERED: SODIUM ZIRCONIUM CYCLOSILICATE (LOKELMA) 10 GM PACKET PO SCH (12:48)
[2021-08-09] MEDS ORDERED: PT OWN MED DRAWER 7, Y5N ONE (13:29)
[2021-08-09] MEDS: SODIUM ZIRCONIUM CYCLOSILICATE (LOKELMA) 5 GM PACKET PO SCH ×2 (14:13→22:12)
[2021-08-09] MEDS: SODIUM CHLORIDE 0.45% 1,000 ML IV SCH (14:58)
[2021-08-09] MEDS ORDERED: IRON SUCROSE INJECTION 200 MG in SODIUM CHLORIDE 90 ML IVPB ONE (16:00)
[2021-08-09] MEDS ORDERED: FUROSEMIDE 40 MG/4 ML INJECTABLE VIAL IVPUSH ONE (16:16)
[2021-08-09] MEDS ORDERED: SODIUM BICARBONATE 8.4% 50 MEQ/50 ML DISP.SYRIN IVPUSH ONE (16:18)
[2021-08-09] MEDS ORDERED: CALCIUM GLUC IN NACL, ISO-OSM 1 GM/50 ML BAG IVPB ONE (16:18)
[2021-08-09] MEDS ORDERED: SODIUM CHLORIDE 0.45% 1,000 ML IV SCH (16:30)
[2021-08-09] MEDS ORDERED: INSULIN (NOVOLOG) ASPART 100 UNITS/ML 10ML VIAL ONE (16:38)
[2021-08-09 19:02] LABS: CALCIUM 8.4 mg/dL (8.5-10.1)
[2021-08-09 19:03] LABS: BLOOD UREA NITROGEN 61.4 mg/dL (7-18)
[2021-08-09 19:06] LABS: CREATININE 1.5 mg/dL (0.55-1.3)
[2021-08-09] MEDS: traZODone HCL 50 MG TABLET (FP) PO SCH (22:12)
[2021-08-09] MEDS: risperiDONE 1 MG TABLET PO SCH (22:12)
[2021-08-10] MEDS: ACETAMINOPHEN 325 MG TABLET (FP) PO PRN (03:14)
[2021-08-10] MEDS: INSULIN (LEVEMIR) 100 UNITS/ML UNITS SQ SCH ×2 (06:13→06:14)
[2021-08-10] MEDS: hydrALAZINE HCL 25 MG TABLET (FP) PO SCH ×3 (06:13→21:17)
[2021-08-10] MEDS: GABAPENTIN 300 MG CAPSULE PO SCH ×3 (06:13→21:16)
[2021-08-10] MEDS: LEVOTHYROXINE NA 25 MCG TABLET (FP) PO SCH (06:13)
[2021-08-10] MEDS: INSULIN SLIDING SCALE (NOVOLOG) 1 VIAL SQ SCH ×3 (06:23→17:14)
[2021-08-10] MEDS: ALBUTEROL SO4 2.5/IPRATROPIUM 0.5 INH SOL 3 ML VIAL.NEB. NEB SCH ×4 (07:59→19:37)
[2021-08-10] MEDS ORDERED: ESCITALOPRAM OXALATE 10 MG TABLET ONE ×2 (08:54→10:46)
[2021-08-10] MEDS: SODIUM ZIRCONIUM CYCLOSILICATE (LOKELMA) 5 GM PACKET PO SCH ×2 (09:06→21:17)
[2021-08-10 09:12] LABS: BASO % 0.9 % (0-2.0); EOS % 2.5 % (0-4.5); HEMOGLOBIN 7.5 GM/dL (11.7-16.9); LYMPH % 11.6 % (8-40); MCHC 32.8 g/dl (32.0-35.9); MEAN CELL VOLUME 85.2 fl (80-96); MONO % 7.9 % (3.8-10.2); NEUT % 77.1 % (42.8-82.8); PLATELET COUNT 371 10^3/uL (134-434); RBC 2.69 M/mm3 (4.00-5.60); WHITE BLOOD COUNT 7.6 K/mm3 (4.0-10.0)
[2021-08-10 09:37] LABS: BLOOD UREA NITROGEN 58.2 mg/dL (7-18); CALCIUM 8.5 mg/dL (8.5-10.1)
[2021-08-10 09:40] LABS: CREATININE 1.4 mg/dL (0.55-1.3)
[2021-08-10 09:41] LABS: BILIRUBIN,TOTAL 0.7 mg/dL (0.2-1)
[2021-08-10 09:42] LABS: TOT PROT 6.8 g/dl (6.4-8.2)
[2021-08-10] MEDS: PANTOPRAZOLE 40 MG TABLET PO SCH (10:52)
[2021-08-10] MEDS: amLODIPine BESYLATE 5 MG TABLET (FP) PO SCH (10:52)
[2021-08-10] MEDS: ISOSORBIDE MONONITRATE 30 MG TAB.SR.24H (FP) PO SCH (10:52)
[2021-08-10] MEDS: ESCITALOPRAM OXALATE 20 MG TABLET PO SCH (10:52)
[2021-08-10] MEDS: CARVEDILOL 25 MG TABLET (FP) PO SCH ×2 (10:52→21:17)
[2021-08-10] MEDS: ZINC OXIDE 20% TOPICAL OINTMENT 30 GM TUBE TP SCH ×2 (11:44→21:17)
[2021-08-10] MEDS: FUROSEMIDE 40 MG TABLET (FP) PO SCH (13:27)
[2021-08-10] MEDS ORDERED: INSULIN (NOVOLOG) ASPART 100 UNITS/ML 10ML VIAL ONE (17:24)
[2021-08-10] MEDS: risperiDONE 1 MG TABLET PO SCH (21:16)
[2021-08-10] MEDS: traZODone HCL 50 MG TABLET (FP) PO SCH (21:16)
[2021-08-11] MEDS: INSULIN SLIDING SCALE (NOVOLOG) 1 VIAL SQ SCH ×2 (06:19→17:23)
[2021-08-11] MEDS: GABAPENTIN 300 MG CAPSULE PO SCH ×3 (06:20→21:40)
[2021-08-11] MEDS: LEVOTHYROXINE NA 25 MCG TABLET (FP) PO SCH (06:20)
[2021-08-11] MEDS: hydrALAZINE HCL 25 MG TABLET (FP) PO SCH ×3 (06:20→21:40)
[2021-08-11] MEDS: INSULIN (LEVEMIR) 100 UNITS/ML UNITS SQ SCH (06:30)
[2021-08-11] MEDS: ALBUTEROL SO4 2.5/IPRATROPIUM 0.5 INH SOL 3 ML VIAL.NEB. NEB SCH ×4 (07:45→20:07)
[2021-08-11 08:00] LABS: BASO % 0.8 % (0-2.0); EOS % 2.3 % (0-4.5); HEMATOCRIT 22.7 % (35.4-49); HEMOGLOBIN 7.5 GM/dL (11.7-16.9); LYMPH % 9.7 % (8-40); MCH 27.9 pg (25.7-33.7); MEAN CELL VOLUME 84.6 fl (80-96); MONO % 7.1 % (3.8-10.2); NEUT % 80.1 % (42.8-82.8); PLATELET COUNT 348 10^3/uL (134-434); RBC 2.68 M/mm3 (4.00-5.60); RDW 17.8 % (11.9-15.9); WHITE BLOOD COUNT 8.6 K/mm3 (4.0-10.0)
[2021-08-11 08:16] LABS: BLOOD UREA NITROGEN 53.9 mg/dL (7-18); CALCIUM 8.6 mg/dL (8.5-10.1)
[2021-08-11 08:19] LABS: CREATININE 1.4 mg/dL (0.55-1.3)
[2021-08-11] MEDS ORDERED: ESCITALOPRAM OXALATE 10 MG TABLET ONE (09:27)
[2021-08-11] MEDS: PANTOPRAZOLE 40 MG TABLET PO SCH (09:48)
[2021-08-11] MEDS: ISOSORBIDE MONONITRATE 30 MG TAB.SR.24H (FP) PO SCH (09:48)
[2021-08-11] MEDS: CARVEDILOL 25 MG TABLET (FP) PO SCH ×2 (09:48→21:40)
[2021-08-11] MEDS: amLODIPine BESYLATE 5 MG TABLET (FP) PO SCH (09:49)
[2021-08-11] MEDS: ZINC OXIDE 20% TOPICAL OINTMENT 30 GM TUBE TP SCH ×2 (09:49→21:41)
[2021-08-11] MEDS: FUROSEMIDE 40 MG TABLET (FP) PO SCH (09:49)
[2021-08-11] MEDS: ESCITALOPRAM OXALATE 20 MG TABLET PO SCH (09:49)
[2021-08-11] MEDS ORDERED: SODIUM ZIRCONIUM CYCLOSILICATE (LOKELMA) 5 GM PACKET PO SCH (12:00)
[2021-08-11] MEDS: risperiDONE 1 MG TABLET PO SCH (21:40)
[2021-08-11] MEDS: traZODone HCL 50 MG TABLET (FP) PO SCH (21:40)
[2021-08-12] MEDS: hydrALAZINE HCL 25 MG TABLET (FP) PO SCH ×3 (06:15→22:31)
[2021-08-12] MEDS: GABAPENTIN 300 MG CAPSULE PO SCH ×3 (06:15→22:31)
[2021-08-12] MEDS: LEVOTHYROXINE NA 25 MCG TABLET (FP) PO SCH (06:15)
[2021-08-12] MEDS: INSULIN (LEVEMIR) 100 UNITS/ML UNITS SQ SCH (06:17)
[2021-08-12] MEDS: INSULIN SLIDING SCALE (NOVOLOG) 1 VIAL SQ SCH ×2 (06:18→16:41)
[2021-08-12] MEDS ORDERED: INSULIN (NOVOLOG) ASPART 100 UNITS/ML 10ML VIAL ONE (06:41)
[2021-08-12 07:01] LABS: BASO % 1.1 % (0-2.0); EOS % 3.3 % (0-4.5); HEMATOCRIT 22.2 % (35.4-49); HEMOGLOBIN 7.4 GM/dL (11.7-16.9); LYMPH % 10.7 % (8-40); MCH 28.2 pg (25.7-33.7); MCHC 33.2 g/dl (32.0-35.9); MEAN CELL VOLUME 84.9 fl (80-96); MEAN PLT VOLUME 8.8 fl (7.5-11.1); MONO % 6.9 % (3.8-10.2); PLATELET COUNT 321 10^3/uL (134-434); RBC 2.62 M/mm3 (4.00-5.60); RDW 17.7 % (11.9-15.9); WHITE BLOOD COUNT 7.2 K/mm3 (4.0-10.0)
[2021-08-12 07:33] LABS: CALCIUM 8.8 mg/dL (8.5-10.1)
[2021-08-12 07:34] LABS: BLOOD UREA NITROGEN 48.8 mg/dL (7-18)
[2021-08-12 07:36] LABS: ALBUMIN 2.1 g/dl (3.4-5.0)
[2021-08-12 07:40] LABS: CREATININE 1.5 mg/dL (0.55-1.3)
[2021-08-12] MEDS: ALBUTEROL SO4 2.5/IPRATROPIUM 0.5 INH SOL 3 ML VIAL.NEB. NEB SCH ×4 (08:46→20:56)
[2021-08-12] MEDS ORDERED: ESCITALOPRAM OXALATE 10 MG TABLET ONE (09:59)
[2021-08-12] MEDS ORDERED: PT OWN MED DRAWER 7, Y5N ONE (09:59)
[2021-08-12] MEDS ORDERED: SODIUM ZIRCONIUM CYCLOSILICATE (LOKELMA) 5 GM PACKET PO SCH (10:00)
[2021-08-12] MEDS: ISOSORBIDE MONONITRATE 30 MG TAB.SR.24H (FP) PO SCH (10:31)
[2021-08-12] MEDS: CARVEDILOL 25 MG TABLET (FP) PO SCH ×2 (10:31→22:31)
[2021-08-12] MEDS: FUROSEMIDE 40 MG TABLET (FP) PO SCH (10:31)
[2021-08-12] MEDS: amLODIPine BESYLATE 5 MG TABLET (FP) PO SCH (10:32)
[2021-08-12] MEDS: ESCITALOPRAM OXALATE 20 MG TABLET PO SCH (10:32)
[2021-08-12] MEDS: PANTOPRAZOLE 40 MG TABLET PO SCH (10:33)
[2021-08-12] MEDS: ZINC OXIDE 20% TOPICAL OINTMENT 30 GM TUBE TP SCH ×2 (10:33→22:32)
[2021-08-12] MEDS: traZODone HCL 50 MG TABLET (FP) PO SCH (22:31)
[2021-08-12] MEDS: APIXABAN 2.5 MG TABLET PO SCH (22:31)
[2021-08-12] MEDS: risperiDONE 1 MG TABLET PO SCH (22:31)
[2021-08-13] MEDS: LEVOTHYROXINE NA 25 MCG TABLET (FP) PO SCH (06:21)
[2021-08-13] MEDS: INSULIN (LEVEMIR) 100 UNITS/ML UNITS SQ SCH (06:21)
[2021-08-13] MEDS: GABAPENTIN 300 MG CAPSULE PO SCH ×3 (06:21→21:32)
[2021-08-13] MEDS: hydrALAZINE HCL 25 MG TABLET (FP) PO SCH ×3 (06:21→21:32)
[2021-08-13] MEDS: INSULIN SLIDING SCALE (NOVOLOG) 1 VIAL SQ SCH ×2 (06:22→16:55)
[2021-08-13] MEDS: ALBUTEROL SO4 2.5/IPRATROPIUM 0.5 INH SOL 3 ML VIAL.NEB. NEB SCH ×4 (09:30→19:43)
[2021-08-13] MEDS ORDERED: ESCITALOPRAM OXALATE 10 MG TABLET ONE (09:38)
[2021-08-13] MEDS: APIXABAN 2.5 MG TABLET PO SCH ×2 (09:47→21:32)
[2021-08-13] MEDS: ISOSORBIDE MONONITRATE 30 MG TAB.SR.24H (FP) PO SCH (09:47)
[2021-08-13] MEDS: SODIUM ZIRCONIUM CYCLOSILICATE (LOKELMA) 5 GM PACKET PO SCH (09:47)
[2021-08-13] MEDS: amLODIPine BESYLATE 5 MG TABLET (FP) PO SCH (09:47)
[2021-08-13] MEDS: FUROSEMIDE 40 MG TABLET (FP) PO SCH (09:47)
[2021-08-13] MEDS: PANTOPRAZOLE 40 MG TABLET PO SCH (09:47)
[2021-08-13] MEDS: CARVEDILOL 25 MG TABLET (FP) PO SCH ×2 (09:47→21:32)
[2021-08-13] MEDS: ZINC OXIDE 20% TOPICAL OINTMENT 30 GM TUBE TP SCH ×2 (09:48→21:36)
[2021-08-13] MEDS: ESCITALOPRAM OXALATE 20 MG TABLET PO SCH (09:48)
[2021-08-13 16:36] LABS: BASO % 0.1 % (0-2.0); EOS % 5.2 % (0-4.5); HEMATOCRIT 24.3 % (35.4-49); HEMOGLOBIN 8.1 GM/dL (11.7-16.9); LYMPH % 8.5 % (8-40); MCH 28.7 pg (25.7-33.7); MCHC 33.2 g/dl (32.0-35.9); MEAN CELL VOLUME 86.5 fl (80-96); MEAN PLT VOLUME 8.7 fl (7.5-11.1); MONO % 6.9 % (3.8-10.2); NEUT % 79.3 % (42.8-82.8); PLATELET COUNT 309 10^3/uL (134-434); RBC 2.81 M/mm3 (4.00-5.60); RDW 17.5 % (11.9-15.9); WHITE BLOOD COUNT 6.8 K/mm3 (4.0-10.0)
[2021-08-13 17:02] LABS: CALCIUM 8.6 mg/dL (8.5-10.1)
[2021-08-13 17:03] LABS: ALBUMIN 2.2 g/dl (3.4-5.0); BLOOD UREA NITROGEN 43.6 mg/dL (7-18)
[2021-08-13 17:06] LABS: CREATININE 1.5 mg/dL (0.55-1.3)
[2021-08-13 17:08] LABS: BILIRUBIN,TOTAL 0.9 mg/dL (0.2-1); TOT PROT 7.2 g/dl (6.4-8.2)
[2021-08-13] MEDS: traZODone HCL 50 MG TABLET (FP) PO SCH (21:32)
[2021-08-13] MEDS: risperiDONE 1 MG TABLET PO SCH (21:32)
[2021-08-13] MEDS: SIMETHICONE 80 MG TAB.CHEW (FP) PO PRN (21:32)
[2021-08-14] MEDS: INSULIN SLIDING SCALE (NOVOLOG) 1 VIAL SQ SCH ×2 (06:05→18:34)
[2021-08-14] MEDS: hydrALAZINE HCL 25 MG TABLET (FP) PO SCH ×3 (06:06→21:46)
[2021-08-14] MEDS: INSULIN (LEVEMIR) 100 UNITS/ML UNITS SQ SCH (06:06)
[2021-08-14] MEDS: GABAPENTIN 300 MG CAPSULE PO SCH ×3 (06:06→21:47)
[2021-08-14] MEDS: LEVOTHYROXINE NA 25 MCG TABLET (FP) PO SCH (06:10)
[2021-08-14] MEDS: ALBUTEROL SO4 2.5/IPRATROPIUM 0.5 INH SOL 3 ML VIAL.NEB. NEB SCH ×4 (07:30→21:30)
[2021-08-14] MEDS ORDERED: ESCITALOPRAM OXALATE 10 MG TABLET ONE (09:37)
[2021-08-14] MEDS: amLODIPine BESYLATE 5 MG TABLET (FP) PO SCH (09:41)
[2021-08-14] MEDS: CARVEDILOL 25 MG TABLET (FP) PO SCH ×2 (09:41→21:46)
[2021-08-14] MEDS: PANTOPRAZOLE 40 MG TABLET PO SCH (09:41)
[2021-08-14] MEDS: FUROSEMIDE 40 MG TABLET (FP) PO SCH (09:41)
[2021-08-14] MEDS: ISOSORBIDE MONONITRATE 30 MG TAB.SR.24H (FP) PO SCH (09:41)
[2021-08-14] MEDS: APIXABAN 2.5 MG TABLET PO SCH ×2 (09:43→21:47)
[2021-08-14] MEDS: ZINC OXIDE 20% TOPICAL OINTMENT 30 GM TUBE TP SCH ×2 (09:43→21:47)
[2021-08-14] MEDS: SODIUM ZIRCONIUM CYCLOSILICATE (LOKELMA) 5 GM PACKET PO SCH (09:43)
[2021-08-14] MEDS: ESCITALOPRAM OXALATE 20 MG TABLET PO SCH (09:43)
[2021-08-14] MEDS ORDERED: INSULIN (NOVOLOG) ASPART 100 UNITS/ML 10ML VIAL ONE (17:39)
[2021-08-14] MEDS: risperiDONE 1 MG TABLET PO SCH (21:46)
[2021-08-14] MEDS: traZODone HCL 50 MG TABLET (FP) PO SCH (21:47)
[2021-08-15] MEDS: hydrALAZINE HCL 25 MG TABLET (FP) PO SCH ×3 (05:59→21:36)
[2021-08-15] MEDS: INSULIN SLIDING SCALE (NOVOLOG) 1 VIAL SQ SCH ×2 (05:59→17:46)
[2021-08-15] MEDS: GABAPENTIN 300 MG CAPSULE PO SCH ×3 (05:59→21:36)
[2021-08-15] MEDS: INSULIN (LEVEMIR) 100 UNITS/ML UNITS SQ SCH (06:00)
[2021-08-15] MEDS: LEVOTHYROXINE NA 25 MCG TABLET (FP) PO SCH (06:07)
[2021-08-15] MEDS: ALBUTEROL SO4 2.5/IPRATROPIUM 0.5 INH SOL 3 ML VIAL.NEB. NEB SCH ×2 (08:43→12:53)
[2021-08-15] MEDS ORDERED: ESCITALOPRAM OXALATE 10 MG TABLET ONE (09:51)
[2021-08-15] MEDS: APIXABAN 2.5 MG TABLET PO SCH ×2 (09:53→21:36)
[2021-08-15] MEDS: amLODIPine BESYLATE 5 MG TABLET (FP) PO SCH (09:53)
[2021-08-15] MEDS: ACETAMINOPHEN 325 MG TABLET (FP) PO PRN (09:53)
[2021-08-15] MEDS: CARVEDILOL 25 MG TABLET (FP) PO SCH ×2 (09:55→21:36)
[2021-08-15] MEDS: ISOSORBIDE MONONITRATE 30 MG TAB.SR.24H (FP) PO SCH (09:55)
[2021-08-15] MEDS: FUROSEMIDE 40 MG TABLET (FP) PO SCH (09:55)
[2021-08-15] MEDS: PANTOPRAZOLE 40 MG TABLET PO SCH (09:56)
[2021-08-15] MEDS: ESCITALOPRAM OXALATE 20 MG TABLET PO SCH (09:56)
[2021-08-15] MEDS: SODIUM ZIRCONIUM CYCLOSILICATE (LOKELMA) 5 GM PACKET PO SCH (09:56)
[2021-08-15] MEDS: ZINC OXIDE 20% TOPICAL OINTMENT 30 GM TUBE TP SCH ×2 (09:57→21:36)
[2021-08-15] MEDS: traZODone HCL 50 MG TABLET (FP) PO SCH (21:36)
[2021-08-15] MEDS: risperiDONE 1 MG TABLET PO SCH (21:36)
[2021-08-16] MEDS: ACETAMINOPHEN 325 MG TABLET (FP) PO PRN (04:25)
[2021-08-16] MEDS ORDERED: DEXTROSE 50%-WATER 25 GM/50 ML DISP.SYRIN ONE (05:30)
[2021-08-16] MEDS: GABAPENTIN 300 MG CAPSULE PO SCH ×3 (06:25→21:43)
[2021-08-16] MEDS: hydrALAZINE HCL 25 MG TABLET (FP) PO SCH ×3 (06:25→21:43)
[2021-08-16] MEDS: INSULIN SLIDING SCALE (NOVOLOG) 1 VIAL SQ SCH ×2 (06:25→17:58)
[2021-08-16] MEDS: LEVOTHYROXINE NA 25 MCG TABLET (FP) PO SCH (06:25)
[2021-08-16] MEDS: INSULIN (LEVEMIR) 100 UNITS/ML UNITS SQ SCH (06:26)
[2021-08-16] MEDS ORDERED: ESCITALOPRAM OXALATE 10 MG TABLET ONE (10:16)
[2021-08-16] MEDS: FUROSEMIDE 40 MG TABLET (FP) PO SCH (10:18)
[2021-08-16] MEDS: amLODIPine BESYLATE 5 MG TABLET (FP) PO SCH (10:18)
[2021-08-16] MEDS: CARVEDILOL 25 MG TABLET (FP) PO SCH ×2 (10:18→21:43)
[2021-08-16] MEDS: ISOSORBIDE MONONITRATE 30 MG TAB.SR.24H (FP) PO SCH (10:18)
[2021-08-16] MEDS: APIXABAN 2.5 MG TABLET PO SCH ×2 (10:18→21:43)
[2021-08-16] MEDS: PANTOPRAZOLE 40 MG TABLET PO SCH (10:18)
[2021-08-16] MEDS: ZINC OXIDE 20% TOPICAL OINTMENT 30 GM TUBE TP SCH ×2 (10:19→21:44)
[2021-08-16] MEDS: ESCITALOPRAM OXALATE 20 MG TABLET PO SCH (10:19)
[2021-08-16] MEDS: FUROSEMIDE 40 MG/4 ML INJECTABLE VIAL IVPUSH SCH (14:12)
[2021-08-16] MEDS ORDERED: PT OWN MED DRAWER 7, Y5N ONE (21:39)
[2021-08-16] MEDS: risperiDONE 1 MG TABLET PO SCH (21:43)
[2021-08-16] MEDS: traZODone HCL 50 MG TABLET (FP) PO SCH (21:43)
[2021-08-16] MEDS: NYSTATIN 100,000 UNIT/GM TOPICAL CREAM 15 GM TUBE TP SCH (21:44)
[2021-08-17] MEDS: hydrALAZINE HCL 25 MG TABLET (FP) PO SCH ×3 (06:13→22:26)
[2021-08-17] MEDS: GABAPENTIN 300 MG CAPSULE PO SCH ×3 (06:13→22:28)
[2021-08-17] MEDS: LEVOTHYROXINE NA 25 MCG TABLET (FP) PO SCH (06:13)
[2021-08-17] MEDS: FUROSEMIDE 40 MG/4 ML INJECTABLE VIAL IVPUSH SCH ×2 (06:14→18:09)
[2021-08-17] MEDS: INSULIN SLIDING SCALE (NOVOLOG) 1 VIAL SQ SCH ×2 (06:20→18:01)
[2021-08-17] MEDS: INSULIN (LEVEMIR) 100 UNITS/ML UNITS SQ SCH (06:22)
[2021-08-17] MEDS ORDERED: INSULIN (LEVEMIR) 100 UNITS/ML UNITS SQ ONE (06:26)
[2021-08-17 08:09] LABS: ALBUMIN 2.2 g/dl (3.4-5.0); CALCIUM 8.1 mg/dL (8.5-10.1)
[2021-08-17 08:10] LABS: BLOOD UREA NITROGEN 36.3 mg/dL (7-18)
[2021-08-17 08:13] LABS: CREATININE 1.5 mg/dL (0.55-1.3)
[2021-08-17 08:14] LABS: BILIRUBIN,TOTAL 1.1 mg/dL (0.2-1); TOT PROT 7.3 g/dl (6.4-8.2)
[2021-08-17] MEDS ORDERED: ESCITALOPRAM OXALATE 10 MG TABLET ONE (08:48)
[2021-08-17] MEDS: ISOSORBIDE MONONITRATE 30 MG TAB.SR.24H (FP) PO SCH (09:02)
[2021-08-17] MEDS: CARVEDILOL 25 MG TABLET (FP) PO SCH ×2 (09:03→22:26)
[2021-08-17] MEDS: APIXABAN 2.5 MG TABLET PO SCH ×2 (09:03→22:26)
[2021-08-17] MEDS: amLODIPine BESYLATE 5 MG TABLET (FP) PO SCH (09:03)
[2021-08-17] MEDS: PANTOPRAZOLE 40 MG TABLET PO SCH (09:03)
[2021-08-17] MEDS: ESCITALOPRAM OXALATE 20 MG TABLET PO SCH (09:04)
[2021-08-17] MEDS ORDERED: ACETAMINOPHEN 325 MG TABLET (FP) PO ONE (09:59)
[2021-08-17] MEDS: ACETAMINOPHEN 325 MG TABLET (FP) PO PRN (11:01)
[2021-08-17] MEDS: ZINC OXIDE 20% TOPICAL OINTMENT 30 GM TUBE TP SCH ×2 (11:03→22:27)
[2021-08-17] MEDS: NYSTATIN 100,000 UNIT/GM TOPICAL CREAM 15 GM TUBE TP SCH ×2 (11:04→22:26)
[2021-08-17 20:43] VITALS: BP 145/80; PULSE 74; TEMP 98.5
[2021-08-17] MEDS: traZODone HCL 50 MG TABLET (FP) PO SCH (22:26)
[2021-08-17] MEDS: risperiDONE 1 MG TABLET PO SCH (22:26)
== END 2021-08-17 23:00 | DRG 871 ==
LOC: JER 16:08 → JERBED 19:50 → JICU 07-31 01:25 → J8W 08-02 18:04
PROVIDERS: ADMIT Internal Medicine; ATTEND Family Medicine
DX: A41.89 Other specified sepsis (principal); E11.01 Type 2 diabetes mellitus with hyperosmolarity with coma; I50.23 Acute on chronic systolic (congestive) heart failure; J96.01 Acute respiratory failure with hypoxia; A48.1 Legionnaires' disease; I13.0 Hypertensive heart and chronic kidney disease with heart failure and stage 1 through stage 4 chronic kidney disease, or unspecified chronic kidney disease; E87.2 Acidosis; E87.1 Hypo-osmolality and hyponatremia; I48.92 Unspecified atrial flutter; I47.1 Supraventricular tachycardia; F32.3 Major depressive disorder, single episode, severe with psychotic features; N17.9 Acute kidney failure, unspecified; I08.1 Rheumatic disorders of both mitral and tricuspid valves; N28.1 Cyst of kidney, acquired; I25.10 Atherosclerotic heart disease of native coronary artery without angina pectoris; I27.20 Pulmonary hypertension, unspecified; E78.5 Hyperlipidemia, unspecified; K76.1 Chronic passive congestion of liver; E03.9 Hypothyroidism, unspecified; R94.5 Abnormal results of liver function studies; E11.22 Type 2 diabetes mellitus with diabetic chronic kidney disease; N18.9 Chronic kidney disease, unspecified; E11.65 Type 2 diabetes mellitus with hyperglycemia; E87.5 Hyperkalemia; D50.9 Iron deficiency anemia, unspecified; D72.829 Elevated white blood cell count, unspecified; E87.70 Fluid overload, unspecified; R60.0 Localized edema; R59.9 Enlarged lymph nodes, unspecified; Z91.14 Patient's other noncompliance with medication regimen; Z95.0 Presence of cardiac pacemaker
CPT/HCPCS: 36415; 36430; 36511; 70450-TC; 71045-TC-FY; 71250-TC; 74018-TC-FY; 76705-TC; 76775-TC; 76882-TC-RT-FY; 80048; 80053; 81003; 82010; 82140; 82272; 82550; 82728; 82784; 82803; 82962; 82977; 83036; 83540; 83550; 83605; 83615; 83735; 83880; 84080; 84100; 84155; 84165; 84484; 85025; 85027; 85610; 85730; 86140; 86334; 86359; 86360; 86705; 86706; 86707; 86708; 86850; 86900; 86901; 86922; 87040; 87086; 87517; 87522; 87529; 87804; 87899; 93005; 93010; 94640; 94761; 97116-GP; 97161-GP; 99285-25; C9803; J0131; J1756; J2794; P9038; P9058; U0003; U0005

== ENCOUNTER 2021-09-06 11:07 | Inpatient (IN) | payer OTHER ==
[2021-09-06] MEDS ORDERED: ACETAMINOPHEN 1000 MG/100 ML VIAL IVPB ONE ×2 (11:41→16:58)
[2021-09-06] MEDS ORDERED: ACETAMINOPHEN INJECTION 100 ML IVPB ONE ×2 (11:47→17:20)
[2021-09-06 12:41] LABS: BASO % 1.2 % (0-2.0); HEMATOCRIT 25.8 % (35.4-49); HEMOGLOBIN 8.5 GM/dL (11.7-16.9); LYMPH % 6.5 % (8-40); MCH 29.6 pg (25.7-33.7); MCHC 32.9 g/dl (32.0-35.9); MEAN CELL VOLUME 89.9 fl (80-96); MEAN PLT VOLUME 8.6 fl (7.5-11.1); MONO % 8.5 % (3.8-10.2); NEUT % 67.8 % (42.8-82.8); PLATELET COUNT 225 10^3/uL (134-434); RBC 2.87 M/mm3 (4.00-5.60); RDW 20.8 % (11.9-15.9); WHITE BLOOD COUNT 10.1 K/mm3 (4.0-10.0)
[2021-09-06 13:00] LABS: CHLORIDE 107 mmol/L (98-107); SODIUM 139 mmol/L (136-145)
[2021-09-06 13:02] LABS: ALBUMIN 2.6 g/dl (3.4-5.0); ANION GAP 7 MMOL/L (8-16); BLOOD UREA NITROGEN 39.1 mg/dL (7-18); CALCIUM 8.6 mg/dL (8.5-10.1); CO2 25 mmol/L (21-32); GLUCOSE,RANDOM 144 mg/dL (74-106)
[2021-09-06 13:05] LABS: CREATININE 1.8 mg/dL (0.55-1.3); MAGNESIUM 2.5 mg/dL (1.8-2.4); SGOT/AST 22 U/L (15-37); SGPT/ALT 26 U/L (13-61)
[2021-09-06 13:07] LABS: BILIRUBIN,TOTAL 0.8 mg/dL (0.2-1)
[2021-09-06 13:08] LABS: ALK PHOS 382 U/L (45-117)
[2021-09-06 13:44] LABS: ANISOCYTOSIS 1+; MACROCYTOSIS 1+; OVALOCYTE 1+; PLATELET ESTIMATE NORMAL
[2021-09-06] MEDS ORDERED: FUROSEMIDE 100 MG/10 ML INJECTABLE VIAL IVPB ONE (13:56)
[2021-09-06] MEDS ORDERED: VANCOMYCIN 1 GM in D5W (PRE-DOCKED) 1,000 MG/250 ML IVPB ONE (14:25)
[2021-09-06] MEDS ORDERED: PIPERACILLIN/TAZOB 3.375 GM 3.375 GM in DEXTROSE 5%-WATER - 50 ML IVPB ONE (14:26)
[2021-09-06] MEDS ORDERED: AZITHROMYCIN IVPB 500 MG in DEXTROSE 5%-WATER - 250 ML IVPB ONE (14:26)
[2021-09-06] MEDS ORDERED: VANCOMYCIN 1 GRAM (PRE-DOCKED) 1,000 MG/250 ML BAG IVPB ONE (14:58)
[2021-09-06] MEDS ORDERED: FUROSEMIDE 40 MG/4 ML INJECTABLE VIAL ONE (15:08)
[2021-09-06] MEDS ORDERED: AZITHROMYCIN IVPB 500 MG/250 ML BAG IVPB ONE (15:30)
[2021-09-06] MEDS ORDERED: SIMETHICONE 80 MG TAB.CHEW (FP) PO PRN (16:59)
[2021-09-06] MEDS ORDERED: PIPERACILLIN/TAZOBACTAM 3.375 GM VIAL IVPB ONE (18:35)
[2021-09-06] MEDS ORDERED: DEXTROSE 5%-WATER - 50 ML IVPB ONE (18:35)
[2021-09-06] MEDS: PIPERACILLIN/TAZOB 3.375 GM 3.375 GM in DEXTROSE 5%-WATER - 50 ML IVPB SCH (18:38)
[2021-09-06] MEDS: ALBUTEROL SO4 2.5/IPRATROPIUM 0.5 INH SOL 3 ML VIAL.NEB. NEB SCH (20:21)
[2021-09-06] MEDS: APIXABAN 2.5 MG TABLET PO SCH (21:47)
[2021-09-06] MEDS: hydrALAZINE HCL 25 MG TABLET (FP) PO SCH (21:47)
[2021-09-06] MEDS: risperiDONE 1 MG TABLET PO SCH (21:47)
[2021-09-06] MEDS: ATORVASTATIN CA 20 MG TABLET (FP) PO SCH (21:47)
[2021-09-06] MEDS: CARVEDILOL 25 MG TABLET (FP) PO SCH (21:47)
[2021-09-06] MEDS: GABAPENTIN 300 MG CAPSULE PO SCH (21:47)
[2021-09-06] MEDS ORDERED: traZODone HCL 150 MG TABLET PO SCH (22:00)
[2021-09-06] MEDS: traZODone HCL 50 MG TABLET (FP) PO SCH (22:01)
[2021-09-07] MEDS ORDERED: PIPERACILLIN/TAZOBACTAM 3.375 GM VIAL IVPB ONE ×3 (01:12→16:56)
[2021-09-07] MEDS: PIPERACILLIN/TAZOB 3.375 GM 3.375 GM in DEXTROSE 5%-WATER - 50 ML IVPB SCH ×3 (01:20→17:07)
[2021-09-07] MEDS ORDERED: ACETAMINOPHEN 1000 MG/100 ML VIAL IVPB ONE (01:49)
[2021-09-07 02:55] LABS: URINE APPEARANCE CLEAR; URINE BILIRUBIN NEGATIVE (NEGATIVE); URINE COLOR YELLOW; URINE GLUCOSE (UA) NEGATIVE (NEGATIVE); URINE KETONE NEGATIVE (NEGATIVE); URINE LEUK ESTERASE NEGATIVE (NEGATIVE); URINE NITRITE NEGATIVE (NEGATIVE); URINE PROTEIN NEGATIVE (NEGATIVE); URINE UROBILINOGEN 0.2 mg/dL (0.2-1.0)
[2021-09-07] MEDS: FUROSEMIDE 40 MG/4 ML INJECTABLE VIAL IVPB SCH ×2 (06:06→13:10)
[2021-09-07] MEDS: LEVOTHYROXINE NA 25 MCG TABLET (FP) PO SCH (06:07)
[2021-09-07] MEDS: INSULIN (LEVEMIR) 100 UNITS/ML UNITS SQ SCH (06:07)
[2021-09-07] MEDS: hydrALAZINE HCL 25 MG TABLET (FP) PO SCH ×3 (06:07→22:34)
[2021-09-07] MEDS: GABAPENTIN 300 MG CAPSULE PO SCH ×3 (06:07→22:33)
[2021-09-07] MEDS ORDERED: DEXTROSE 5%-WATER - 50 ML IVPB ONE ×2 (10:02→16:57)
[2021-09-07] MEDS: PANTOPRAZOLE 40 MG TABLET PO SCH (10:05)
[2021-09-07] MEDS: APIXABAN 2.5 MG TABLET PO SCH ×2 (10:05→22:33)
[2021-09-07] MEDS: ISOSORBIDE MONONITRATE 30 MG TAB.SR.24H (FP) PO SCH (10:05)
[2021-09-07] MEDS: amLODIPine BESYLATE 5 MG TABLET (FP) PO SCH (10:05)
[2021-09-07] MEDS: ESCITALOPRAM OXALATE 20 MG TABLET PO SCH (10:05)
[2021-09-07] MEDS: CARVEDILOL 25 MG TABLET (FP) PO SCH ×2 (10:06→22:33)
[2021-09-07] MEDS: SODIUM ZIRCONIUM CYCLOSILICATE (LOKELMA) 5 GM PACKET PO SCH (10:06)
[2021-09-07] MEDS: ALBUTEROL SO4 2.5/IPRATROPIUM 0.5 INH SOL 3 ML VIAL.NEB. NEB SCH ×4 (11:19→20:30)
[2021-09-07 11:21] LABS: EOS % 18.4 % (0-4.5); HEMATOCRIT 24.1 % (35.4-49); LYMPH % 8.7 % (8-40); MCH 29.6 pg (25.7-33.7); MEAN CELL VOLUME 89.7 fl (80-96); MEAN PLT VOLUME 8.6 fl (7.5-11.1); MONO % 11.6 % (3.8-10.2); NEUT % 60.3 % (42.8-82.8); PLATELET COUNT 198 10^3/uL (134-434); RBC 2.69 M/mm3 (4.00-5.60); RDW 20.8 % (11.9-15.9); WHITE BLOOD COUNT 6.7 K/mm3 (4.0-10.0)
[2021-09-07] MEDS: SPIRONOLACTONE 25 MG TABLET PO SCH (11:43)
[2021-09-07 11:51] LABS: ALBUMIN 2.5 g/dl (3.4-5.0); BLOOD UREA NITROGEN 40.2 mg/dL (7-18); CALCIUM 8.6 mg/dL (8.5-10.1)
[2021-09-07 11:56] LABS: BILIRUBIN,TOTAL 0.9 mg/dL (0.2-1); TOT PROT 7.6 g/dl (6.4-8.2)
[2021-09-07] MEDS ORDERED: MINERAL OIL ENEMA 133 ML ENEMA RC ONE (12:15)
[2021-09-07] MEDS ORDERED: IRON SUCROSE INJECTION 200 MG in SODIUM CHLORIDE 90 ML IVPB ONE (14:00)
[2021-09-07] MEDS: traZODone HCL 50 MG TABLET (FP) PO SCH (22:32)
[2021-09-07] MEDS: POLYETHYLENE GLYCOL (HEALTHYLAX) 3350 17 GM PACKET PO SCH (22:32)
[2021-09-07] MEDS: ATORVASTATIN CA 20 MG TABLET (FP) PO SCH (22:33)
[2021-09-07] MEDS: risperiDONE 1 MG TABLET PO SCH (22:34)
[2021-09-08] MEDS ORDERED: DEXTROSE 5%-WATER - 50 ML IVPB ONE ×3 (02:21→16:31)
[2021-09-08] MEDS ORDERED: PIPERACILLIN/TAZOBACTAM 3.375 GM VIAL IVPB ONE ×3 (02:21→16:30)
[2021-09-08] MEDS: PIPERACILLIN/TAZOB 3.375 GM 3.375 GM in DEXTROSE 5%-WATER - 50 ML IVPB SCH ×3 (02:27→17:03)
[2021-09-08] MEDS: INSULIN (LEVEMIR) 100 UNITS/ML UNITS SQ SCH (06:02)
[2021-09-08] MEDS: hydrALAZINE HCL 25 MG TABLET (FP) PO SCH ×3 (06:07→22:21)
[2021-09-08] MEDS: GABAPENTIN 300 MG CAPSULE PO SCH ×3 (06:08→22:18)
[2021-09-08] MEDS: LEVOTHYROXINE NA 25 MCG TABLET (FP) PO SCH (06:08)
[2021-09-08] MEDS: FUROSEMIDE 40 MG/4 ML INJECTABLE VIAL IVPB SCH ×2 (06:08→13:06)
[2021-09-08] MEDS: ALBUTEROL SO4 2.5/IPRATROPIUM 0.5 INH SOL 3 ML VIAL.NEB. NEB SCH ×4 (07:49→20:17)
[2021-09-08 07:55] LABS: BASO % 1.3 % (0-2.0); EOS % 17.3 % (0-4.5); HEMATOCRIT 24.8 % (35.4-49); HEMOGLOBIN 8.1 GM/dL (11.7-16.9); LYMPH % 8.3 % (8-40); MCHC 32.6 g/dl (32.0-35.9); MEAN CELL VOLUME 91.9 fl (80-96); MONO % 9.3 % (3.8-10.2); NEUT % 63.8 % (42.8-82.8); PLATELET COUNT 184 10^3/uL (134-434); RDW 20.9 % (11.9-15.9); WHITE BLOOD COUNT 7.3 K/mm3 (4.0-10.0)
[2021-09-08 08:02] LABS: ALBUMIN 2.6 g/dl (3.4-5.0)
[2021-09-08 08:04] LABS: BILIRUBIN,DIRECT 0.6 mg/dL (0.0-0.2)
[2021-09-08 08:07] LABS: BILIRUBIN,TOTAL 1.1 mg/dL (0.2-1)
[2021-09-08 08:09] LABS: TOT PROT 7.7 g/dl (6.4-8.2)
[2021-09-08 08:12] LABS: ALBUMIN 2.7 g/dl (3.4-5.0); BLOOD UREA NITROGEN 46.6 mg/dL (7-18); CALCIUM 8.8 mg/dL (8.5-10.1)
[2021-09-08 08:16] LABS: CREATININE 2.9 mg/dL (0.55-1.3)
[2021-09-08 08:17] LABS: BILIRUBIN,TOTAL 1.1 mg/dL (0.2-1); TOT PROT 7.8 g/dl (6.4-8.2)
[2021-09-08] MEDS: SPIRONOLACTONE 25 MG TABLET PO SCH (09:07)
[2021-09-08] MEDS: ESCITALOPRAM OXALATE 20 MG TABLET PO SCH (09:07)
[2021-09-08] MEDS: PANTOPRAZOLE 40 MG TABLET PO SCH (09:07)
[2021-09-08] MEDS: APIXABAN 2.5 MG TABLET PO SCH ×2 (09:07→22:16)
[2021-09-08] MEDS: ISOSORBIDE MONONITRATE 30 MG TAB.SR.24H (FP) PO SCH (09:07)
[2021-09-08] MEDS: CARVEDILOL 25 MG TABLET (FP) PO SCH ×2 (09:07→22:18)
[2021-09-08] MEDS: amLODIPine BESYLATE 5 MG TABLET (FP) PO SCH (09:07)
[2021-09-08] MEDS: POLYETHYLENE GLYCOL (HEALTHYLAX) 3350 17 GM PACKET PO SCH ×2 (09:08→22:18)
[2021-09-08] MEDS: SODIUM ZIRCONIUM CYCLOSILICATE (LOKELMA) 5 GM PACKET PO SCH (09:08)
[2021-09-08] MEDS ORDERED: FLUTICASONE/UMECLIDIN/VILANTER(100-62.5-25 TRELEGY ELLIPTA) INAHLER IH SCH (10:30)
[2021-09-08 18:33] LABS: URINE APPEARANCE CLOUDY; URINE BILIRUBIN NEGATIVE (NEGATIVE); URINE COLOR DK YELLOW; URINE GLUCOSE (UA) NEGATIVE (NEGATIVE); URINE KETONE TRACE (NEGATIVE); URINE LEUK ESTERASE NEGATIVE (NEGATIVE); URINE NITRITE NEGATIVE (NEGATIVE); URINE PROTEIN TRACE (NEGATIVE); URINE UROBILINOGEN 0.2 mg/dL (0.2-1.0)
[2021-09-08] MEDS: ATORVASTATIN CA 20 MG TABLET (FP) PO SCH (22:10)
[2021-09-08] MEDS: traZODone HCL 50 MG TABLET (FP) PO SCH (22:16)
[2021-09-08] MEDS: risperiDONE 1 MG TABLET PO SCH (22:17)
[2021-09-09] MEDS ORDERED: DEXTROSE 5%-WATER - 50 ML IVPB ONE ×2 (01:15→08:02)
[2021-09-09] MEDS ORDERED: PIPERACILLIN/TAZOBACTAM 3.375 GM VIAL IVPB ONE ×2 (01:15→08:02)
[2021-09-09] MEDS: PIPERACILLIN/TAZOB 3.375 GM 3.375 GM in DEXTROSE 5%-WATER - 50 ML IVPB SCH ×2 (03:15→09:12)
[2021-09-09] MEDS: FUROSEMIDE 40 MG/4 ML INJECTABLE VIAL IVPB SCH ×2 (05:43→13:29)
[2021-09-09] MEDS: GABAPENTIN 300 MG CAPSULE PO SCH ×3 (05:44→22:02)
[2021-09-09] MEDS: hydrALAZINE HCL 25 MG TABLET (FP) PO SCH ×3 (05:44→22:02)
[2021-09-09] MEDS: INSULIN (LEVEMIR) 100 UNITS/ML UNITS SQ SCH (06:55)
[2021-09-09] MEDS: LEVOTHYROXINE NA 25 MCG TABLET (FP) PO SCH (06:56)
[2021-09-09 07:30] LABS: BASO % 0.6 % (0-2.0); EOS % 5.6 % (0-4.5); HEMATOCRIT 25.4 % (35.4-49); HEMOGLOBIN 8.4 GM/dL (11.7-16.9); LYMPH % 7.2 % (8-40); MCH 29.6 pg (25.7-33.7); MCHC 33.2 g/dl (32.0-35.9); MEAN CELL VOLUME 89.3 fl (80-96); MEAN PLT VOLUME 8.9 fl (7.5-11.1); MONO % 8.1 % (3.8-10.2); NEUT % 78.5 % (42.8-82.8); PLATELET COUNT 180 10^3/uL (134-434); RBC 2.84 M/mm3 (4.00-5.60); RDW 20.2 % (11.9-15.9); WHITE BLOOD COUNT 9.9 K/mm3 (4.0-10.0)
[2021-09-09 08:19] LABS: ALBUMIN 2.7 g/dl (3.4-5.0); BILIRUBIN,TOTAL 1.4 mg/dL (0.2-1); BLOOD UREA NITROGEN 54.7 mg/dL (7-18); CALCIUM 8.7 mg/dL (8.5-10.1); CREATININE 4.5 mg/dL (0.55-1.3)
[2021-09-09] MEDS: ESCITALOPRAM OXALATE 20 MG TABLET PO SCH (09:13)
[2021-09-09] MEDS: ISOSORBIDE MONONITRATE 30 MG TAB.SR.24H (FP) PO SCH (09:13)
[2021-09-09] MEDS: POLYETHYLENE GLYCOL (HEALTHYLAX) 3350 17 GM PACKET PO SCH ×2 (09:13→22:02)
[2021-09-09] MEDS: SODIUM ZIRCONIUM CYCLOSILICATE (LOKELMA) 5 GM PACKET PO SCH (09:13)
[2021-09-09] MEDS: PANTOPRAZOLE 40 MG TABLET PO SCH (09:13)
[2021-09-09] MEDS: amLODIPine BESYLATE 5 MG TABLET (FP) PO SCH (09:13)
[2021-09-09] MEDS: CARVEDILOL 25 MG TABLET (FP) PO SCH ×2 (09:13→22:02)
[2021-09-09] MEDS: APIXABAN 2.5 MG TABLET PO SCH ×2 (09:13→22:02)
[2021-09-09] MEDS: SPIRONOLACTONE 25 MG TABLET PO SCH (09:13)
[2021-09-09] MEDS: ALBUTEROL SO4 2.5/IPRATROPIUM 0.5 INH SOL 3 ML VIAL.NEB. NEB SCH ×4 (10:33→20:52)
[2021-09-09] MEDS ORDERED: SODIUM ZIRCONIUM CYCLOSILICATE (LOKELMA) 5 GM PACKET PO SCH (16:00)
[2021-09-09] MEDS ORDERED: SODIUM CHLORIDE 0.45% 1,000 ML IV SCH (16:00)
[2021-09-09] MEDS: traZODone HCL 50 MG TABLET (FP) PO SCH (21:35)
[2021-09-09] MEDS ORDERED: MUPIROCIN 2% TOPICAL OINTMENT FOR DECOLONIZATION NS SCH (22:00)
[2021-09-09] MEDS ORDERED: CHLORHEXIDINE GLUCONATE 4% CLEANSER FOR DECOLONIZATION TP SCH (22:00)
[2021-09-09] MEDS: ATORVASTATIN CA 20 MG TABLET (FP) PO SCH (22:02)
[2021-09-09] MEDS: risperiDONE 1 MG TABLET PO SCH (22:02)
[2021-09-10] MEDS: GABAPENTIN 300 MG CAPSULE PO SCH ×3 (06:27→22:11)
[2021-09-10] MEDS: INSULIN (LEVEMIR) 100 UNITS/ML UNITS SQ SCH (06:27)
[2021-09-10] MEDS: hydrALAZINE HCL 25 MG TABLET (FP) PO SCH ×3 (06:27→22:09)
[2021-09-10 06:52] LABS: BASO % 0.9 % (0-2.0); EOS % 9.3 % (0-4.5); HEMATOCRIT 25.2 % (35.4-49); HEMOGLOBIN 8.1 GM/dL (11.7-16.9); LYMPH % 10.3 % (8-40); MCH 29.3 pg (25.7-33.7); MCHC 32.1 g/dl (32.0-35.9); MEAN CELL VOLUME 91.3 fl (80-96); MEAN PLT VOLUME 8.9 fl (7.5-11.1); MONO % 12.5 % (3.8-10.2); PLATELET COUNT 166 10^3/uL (134-434); RBC 2.76 M/mm3 (4.00-5.60); RDW 20.3 % (11.9-15.9); WHITE BLOOD COUNT 6.2 K/mm3 (4.0-10.0)
[2021-09-10 07:00] LABS: CALCIUM 8.3 mg/dL (8.5-10.1)
[2021-09-10 07:01] LABS: ALBUMIN 2.4 g/dl (3.4-5.0); BLOOD UREA NITROGEN 67.3 mg/dL (7-18)
[2021-09-10 07:02] LABS: ARTERIAL BLD GAS O2 SATURATION 91.8 % (95-98); ARTERIAL BLOOD GAS BASE EXCESS -3.5 mmol/L (-2-2); ARTERIAL BLOOD GAS PO2 69.4 mmHg (80-100); ARTERIAL BLOOD GAS pH 7.288 (7.350-7.450)
[2021-09-10 07:03] LABS: MAGNESIUM 2.5 mg/dL (1.8-2.4)
[2021-09-10 07:05] LABS: CREATININE 5.7 mg/dL (0.55-1.3)
[2021-09-10 07:07] LABS: BILIRUBIN,TOTAL 0.7 mg/dL (0.2-1); TOT PROT 7.3 g/dl (6.4-8.2)
[2021-09-10 07:12] LABS: ALLENS TEST POSITIVE
[2021-09-10] MEDS: LEVOTHYROXINE NA 25 MCG TABLET (FP) PO SCH (07:12)
[2021-09-10] MEDS ORDERED: SIMETHICONE 80 MG TAB.CHEW (FP) PO PRN (07:57)
[2021-09-10] MEDS ORDERED: PT OWN MED DRAWER 7, Y5N ONE ×3 (09:18→23:52)
[2021-09-10] MEDS: APIXABAN 2.5 MG TABLET PO SCH ×2 (09:19→22:11)
[2021-09-10] MEDS: MUPIROCIN 2% TOPICAL OINTMENT FOR DECOLONIZATION NS SCH ×2 (09:19→22:09)
[2021-09-10] MEDS: PANTOPRAZOLE 40 MG TABLET PO SCH (09:20)
[2021-09-10] MEDS: amLODIPine BESYLATE 5 MG TABLET (FP) PO SCH (09:20)
[2021-09-10] MEDS: ESCITALOPRAM OXALATE 20 MG TABLET PO SCH (09:20)
[2021-09-10] MEDS: ISOSORBIDE MONONITRATE 30 MG TAB.SR.24H (FP) PO SCH (09:20)
[2021-09-10] MEDS: POLYETHYLENE GLYCOL (HEALTHYLAX) 3350 17 GM PACKET PO SCH ×2 (09:20→22:11)
[2021-09-10] MEDS: SODIUM ZIRCONIUM CYCLOSILICATE (LOKELMA) 5 GM PACKET PO SCH (09:20)
[2021-09-10] MEDS: CARVEDILOL 25 MG TABLET (FP) PO SCH ×2 (09:30→22:10)
[2021-09-10] MEDS: ALBUTEROL SO4 2.5/IPRATROPIUM 0.5 INH SOL 3 ML VIAL.NEB. NEB SCH ×4 (09:52→20:43)
[2021-09-10] MEDS ORDERED: SODIUM CHLORIDE 1,000 ML IV SCH (12:15)
[2021-09-10] MEDS: ALBUMIN HUMAN 25% 100 ML VIAL IVPB SCH ×2 (13:13→13:45)
[2021-09-10 16:08] LABS: ALBUMIN 2.6 g/dl (3.4-5.0); BLOOD UREA NITROGEN 67.9 mg/dL (7-18)
[2021-09-10 16:10] LABS: CREATININE 5.8 mg/dL (0.55-1.3)
[2021-09-10 16:12] LABS: BILIRUBIN,TOTAL 0.6 mg/dL (0.2-1); TOT PROT 7.3 g/dl (6.4-8.2)
[2021-09-10] MEDS ORDERED: SODIUM CHLORIDE 500 ML IV STA (16:15)
[2021-09-10] MEDS: ATORVASTATIN CA 20 MG TABLET (FP) PO SCH (22:10)
[2021-09-10] MEDS: traZODone HCL 50 MG TABLET (FP) PO SCH (22:10)
[2021-09-10] MEDS: CHLORHEXIDINE GLUCONATE 4% CLEANSER FOR DECOLONIZATION TP SCH (22:11)
[2021-09-10] MEDS: risperiDONE 1 MG TABLET PO SCH (22:30)
[2021-09-11] MEDS ORDERED: PT OWN MED DRAWER 7, Y5N ONE ×3 (00:38→21:46)
[2021-09-11] MEDS: APIXABAN 2.5 MG TABLET PO SCH ×2 (06:00→10:20)
[2021-09-11] MEDS: hydrALAZINE HCL 25 MG TABLET (FP) PO SCH (06:12)
[2021-09-11] MEDS: INSULIN (LEVEMIR) 100 UNITS/ML UNITS SQ SCH (06:12)
[2021-09-11] MEDS: GABAPENTIN 300 MG CAPSULE PO SCH ×3 (06:12→21:43)
[2021-09-11 06:41] LABS: BASO % 0.8 % (0-2.0); EOS % 11.1 % (0-4.5); HEMATOCRIT 24.1 % (35.4-49); LYMPH % 12.3 % (8-40); MCH 30.1 pg (25.7-33.7); MCHC 33.1 g/dl (32.0-35.9); MEAN PLT VOLUME 8.7 fl (7.5-11.1); MONO % 13.2 % (3.8-10.2); NEUT % 62.6 % (42.8-82.8); PLATELET COUNT 160 10^3/uL (134-434); RBC 2.65 M/mm3 (4.00-5.60); RDW 20.5 % (11.9-15.9); WHITE BLOOD COUNT 6.4 K/mm3 (4.0-10.0)
[2021-09-11] MEDS: LEVOTHYROXINE NA 25 MCG TABLET (FP) PO SCH (07:00)
[2021-09-11 07:02] LABS: BLOOD UREA NITROGEN 71.8 mg/dL (7-18); CALCIUM 7.9 mg/dL (8.5-10.1)
[2021-09-11 07:03] LABS: ALBUMIN 2.5 g/dl (3.4-5.0)
[2021-09-11 07:05] LABS: MAGNESIUM 2.5 mg/dL (1.8-2.4)
[2021-09-11 07:06] LABS: CREATININE 6.3 mg/dL (0.55-1.3)
[2021-09-11 07:07] LABS: BILIRUBIN,TOTAL 0.7 mg/dL (0.2-1); TOT PROT 7.1 g/dl (6.4-8.2)
[2021-09-11] MEDS: ALBUTEROL SO4 2.5/IPRATROPIUM 0.5 INH SOL 3 ML VIAL.NEB. NEB SCH ×4 (08:40→20:43)
[2021-09-11 09:32] LABS: ANISOCYTOSIS 1+; MACROCYTOSIS 0; PLATELET ESTIMATE NORMAL
[2021-09-11] MEDS: POLYETHYLENE GLYCOL (HEALTHYLAX) 3350 17 GM PACKET PO SCH ×2 (10:09→21:43)
[2021-09-11] MEDS: CARVEDILOL 25 MG TABLET (FP) PO SCH ×2 (10:16→21:42)
[2021-09-11] MEDS: MUPIROCIN 2% TOPICAL OINTMENT FOR DECOLONIZATION NS SCH ×2 (10:19→21:42)
[2021-09-11] MEDS: PANTOPRAZOLE 40 MG TABLET PO SCH (10:20)
[2021-09-11] MEDS: ISOSORBIDE MONONITRATE 30 MG TAB.SR.24H (FP) PO SCH (10:20)
[2021-09-11] MEDS: SODIUM ZIRCONIUM CYCLOSILICATE (LOKELMA) 5 GM PACKET PO SCH (10:20)
[2021-09-11] MEDS: ESCITALOPRAM OXALATE 20 MG TABLET PO SCH (10:20)
[2021-09-11] MEDS: amLODIPine BESYLATE 5 MG TABLET (FP) PO SCH (10:20)
[2021-09-11 15:48] LABS: INR 1.42 (0.83-1.09); PROTHROMBIN TIME (PATIENT) 16.7 SEC (9.7-13.0)
[2021-09-11 15:51] LABS: ACTIVATED PTT 26.8 SECONDS (25.2-36.5)
[2021-09-11] MEDS ORDERED: SODIUM CHLORIDE 250 ML IV PRN (17:04)
[2021-09-11] MEDS: CHLORHEXIDINE GLUCONATE 4% CLEANSER FOR DECOLONIZATION TP SCH (21:43)
[2021-09-11] MEDS: ATORVASTATIN CA 20 MG TABLET (FP) PO SCH (21:43)
[2021-09-11] MEDS: risperiDONE 1 MG TABLET PO SCH (21:47)
[2021-09-11] MEDS: traZODone HCL 50 MG TABLET (FP) PO SCH (21:59)
[2021-09-12] MEDS: GABAPENTIN 300 MG CAPSULE PO SCH ×3 (06:00→21:02)
[2021-09-12] MEDS: LEVOTHYROXINE NA 25 MCG TABLET (FP) PO SCH (06:00)
[2021-09-12] MEDS: INSULIN (LEVEMIR) 100 UNITS/ML UNITS SQ SCH (07:00)
[2021-09-12 07:19] LABS: BASO % 0.7 % (0-2.0); EOS % 10.6 % (0-4.5); HEMATOCRIT 24.2 % (35.4-49); LYMPH % 11.8 % (8-40); MCH 29.7 pg (25.7-33.7); MCHC 32.9 g/dl (32.0-35.9); MEAN CELL VOLUME 90.5 fl (80-96); MEAN PLT VOLUME 9.3 fl (7.5-11.1); MONO % 14.4 % (3.8-10.2); NEUT % 62.5 % (42.8-82.8); PLATELET COUNT 155 10^3/uL (134-434); RBC 2.67 M/mm3 (4.00-5.60); RDW 20.4 % (11.9-15.9); WHITE BLOOD COUNT 6.5 K/mm3 (4.0-10.0)
[2021-09-12] MEDS: ALBUTEROL SO4 2.5/IPRATROPIUM 0.5 INH SOL 3 ML VIAL.NEB. NEB SCH ×4 (07:26→20:05)
[2021-09-12 07:47] LABS: ALBUMIN 2.4 g/dl (3.4-5.0); BLOOD UREA NITROGEN 77.2 mg/dL (7-18); CALCIUM 8.1 mg/dL (8.5-10.1)
[2021-09-12 07:48] LABS: MAGNESIUM 2.5 mg/dL (1.8-2.4)
[2021-09-12 07:50] LABS: CREATININE 6.7 mg/dL (0.55-1.3)
[2021-09-12 07:51] LABS: PHOSPHOROUS 6.9 mg/dL (2.5-4.9)
[2021-09-12 07:52] LABS: BILIRUBIN,TOTAL 0.6 mg/dL (0.2-1)
[2021-09-12] MEDS: APIXABAN 2.5 MG TABLET PO SCH ×3 (09:30→21:02)
[2021-09-12] MEDS: ESCITALOPRAM OXALATE 20 MG TABLET PO SCH (09:47)
[2021-09-12] MEDS: PANTOPRAZOLE 40 MG TABLET PO SCH (09:47)
[2021-09-12] MEDS: ISOSORBIDE MONONITRATE 30 MG TAB.SR.24H (FP) PO SCH (09:47)
[2021-09-12] MEDS: SODIUM ZIRCONIUM CYCLOSILICATE (LOKELMA) 5 GM PACKET PO SCH (09:47)
[2021-09-12] MEDS: MUPIROCIN 2% TOPICAL OINTMENT FOR DECOLONIZATION NS SCH ×2 (09:47→21:02)
[2021-09-12] MEDS: amLODIPine BESYLATE 5 MG TABLET (FP) PO SCH (09:47)
[2021-09-12] MEDS: CARVEDILOL 25 MG TABLET (FP) PO SCH ×2 (09:47→21:01)
[2021-09-12] MEDS: POLYETHYLENE GLYCOL (HEALTHYLAX) 3350 17 GM PACKET PO SCH ×2 (16:35→21:01)
[2021-09-12] MEDS: traZODone HCL 50 MG TABLET (FP) PO SCH (21:01)
[2021-09-12] MEDS: CHLORHEXIDINE GLUCONATE 4% CLEANSER FOR DECOLONIZATION TP SCH (21:02)
[2021-09-12] MEDS: ATORVASTATIN CA 20 MG TABLET (FP) PO SCH (21:03)
[2021-09-12] MEDS ORDERED: PT OWN MED DRAWER 7, Y5N ONE (21:05)
[2021-09-12] MEDS: risperiDONE 1 MG TABLET PO SCH (21:07)
[2021-09-13] MEDS: INSULIN (LEVEMIR) 100 UNITS/ML UNITS SQ SCH (06:01)
[2021-09-13] MEDS: LEVOTHYROXINE NA 25 MCG TABLET (FP) PO SCH (06:02)
[2021-09-13] MEDS: GABAPENTIN 300 MG CAPSULE PO SCH ×3 (06:02→22:18)
[2021-09-13 06:45] LABS: BASO % 1.1 % (0-2.0); EOS % 15.8 % (0-4.5); HEMATOCRIT 25.4 % (35.4-49); HEMOGLOBIN 8.3 GM/dL (11.7-16.9); LYMPH % 11.9 % (8-40); MCHC 32.6 g/dl (32.0-35.9); MEAN CELL VOLUME 92.1 fl (80-96); MEAN PLT VOLUME 9.3 fl (7.5-11.1); MONO % 13.1 % (3.8-10.2); NEUT % 58.1 % (42.8-82.8); PLATELET COUNT 152 10^3/uL (134-434); RBC 2.76 M/mm3 (4.00-5.60); RDW 20.8 % (11.9-15.9); WHITE BLOOD COUNT 5.6 K/mm3 (4.0-10.0)
[2021-09-13 07:02] LABS: ALBUMIN 2.5 g/dl (3.4-5.0)
[2021-09-13 07:03] LABS: MAGNESIUM 2.5 mg/dL (1.8-2.4)
[2021-09-13 07:04] LABS: CREATININE 6.1 mg/dL (0.55-1.3)
[2021-09-13 07:05] LABS: PHOSPHOROUS 6.9 mg/dL (2.5-4.9)
[2021-09-13 07:06] LABS: BILIRUBIN,TOTAL 0.6 mg/dL (0.2-1); TOT PROT 7.4 g/dl (6.4-8.2)
[2021-09-13] MEDS: ALBUTEROL SO4 2.5/IPRATROPIUM 0.5 INH SOL 3 ML VIAL.NEB. NEB SCH ×4 (07:35→20:10)
[2021-09-13] MEDS: PANTOPRAZOLE 40 MG TABLET PO SCH (09:28)
[2021-09-13] MEDS: amLODIPine BESYLATE 5 MG TABLET (FP) PO SCH (09:28)
[2021-09-13] MEDS: APIXABAN 2.5 MG TABLET PO SCH ×2 (09:28→22:17)
[2021-09-13] MEDS: CARVEDILOL 25 MG TABLET (FP) PO SCH ×2 (09:28→22:18)
[2021-09-13] MEDS: MUPIROCIN 2% TOPICAL OINTMENT FOR DECOLONIZATION NS SCH ×2 (09:29→22:16)
[2021-09-13] MEDS: ESCITALOPRAM OXALATE 20 MG TABLET PO SCH (09:29)
[2021-09-13] MEDS: SODIUM ZIRCONIUM CYCLOSILICATE (LOKELMA) 5 GM PACKET PO SCH (09:29)
[2021-09-13] MEDS: POLYETHYLENE GLYCOL (HEALTHYLAX) 3350 17 GM PACKET PO SCH ×2 (09:30→22:17)
[2021-09-13] MEDS ORDERED: PT OWN MED DRAWER 7, Y5N ONE ×2 (09:40→21:45)
[2021-09-13] MEDS: ISOSORBIDE MONONITRATE 30 MG TAB.SR.24H (FP) PO SCH (09:42)
[2021-09-13 13:08] LABS: ANTIGLOMERULAR BASEMENT MEN.AB 7 units (0-20)
[2021-09-13 15:08] LABS: ATYPICAL pANCA <1:20 titer (Neg:<1:20); C-ANCA <1:20 titer (Neg:<1:20)
[2021-09-13] MEDS: CHLORHEXIDINE GLUCONATE 4% CLEANSER FOR DECOLONIZATION TP SCH (22:17)
[2021-09-13] MEDS: traZODone HCL 50 MG TABLET (FP) PO SCH (22:17)
[2021-09-13] MEDS: risperiDONE 1 MG TABLET PO SCH (22:17)
[2021-09-13] MEDS: ATORVASTATIN CA 20 MG TABLET (FP) PO SCH (22:18)
[2021-09-14] MEDS: LEVOTHYROXINE NA 25 MCG TABLET (FP) PO SCH (06:39)
[2021-09-14] MEDS: GABAPENTIN 300 MG CAPSULE PO SCH ×3 (06:40→22:26)
[2021-09-14] MEDS: hydrALAZINE HCL 25 MG TABLET (FP) PO SCH ×3 (06:40→22:27)
[2021-09-14] MEDS: INSULIN (LEVEMIR) 100 UNITS/ML UNITS SQ SCH (06:40)
[2021-09-14 07:41] LABS: EOS % 19.5 % (0-4.5); HEMATOCRIT 23.2 % (35.4-49); HEMOGLOBIN 7.4 GM/dL (11.7-16.9); MCH 29.4 pg (25.7-33.7); MCHC 32.1 g/dl (32.0-35.9); MEAN CELL VOLUME 91.6 fl (80-96); MEAN PLT VOLUME 9.4 fl (7.5-11.1); MONO % 12.8 % (3.8-10.2); NEUT % 52.7 % (42.8-82.8); PLATELET COUNT 139 10^3/uL (134-434); RBC 2.53 M/mm3 (4.00-5.60); RDW 20.2 % (11.9-15.9); WHITE BLOOD COUNT 4.9 K/mm3 (4.0-10.0)
[2021-09-14] MEDS: ALBUTEROL SO4 2.5/IPRATROPIUM 0.5 INH SOL 3 ML VIAL.NEB. NEB SCH ×4 (08:03→20:20)
[2021-09-14 08:04] LABS: CALCIUM 8.2 mg/dL (8.5-10.1)
[2021-09-14 08:05] LABS: BLOOD UREA NITROGEN 73.2 mg/dL (7-18); MAGNESIUM 2.5 mg/dL (1.8-2.4)
[2021-09-14 08:07] LABS: ALBUMIN 2.4 g/dl (3.4-5.0)
[2021-09-14 08:08] LABS: CREATININE 5.2 mg/dL (0.55-1.3); PHOSPHOROUS 5.9 mg/dL (2.5-4.9)
[2021-09-14 08:09] LABS: BILIRUBIN,TOTAL 0.8 mg/dL (0.2-1)
[2021-09-14] MEDS ORDERED: ESCITALOPRAM OXALATE 10 MG TABLET ONE (09:57)
[2021-09-14] MEDS ORDERED: MUPIROCIN 2% TOPICAL OINTMENT FOR DECOLONIZATION NS SCH (10:00)
[2021-09-14] MEDS ORDERED: SODIUM ZIRCONIUM CYCLOSILICATE (LOKELMA) 10 GM PACKET PO SCH (10:00)
[2021-09-14] MEDS: CARVEDILOL 25 MG TABLET (FP) PO SCH ×2 (10:08→22:27)
[2021-09-14] MEDS: POLYETHYLENE GLYCOL (HEALTHYLAX) 3350 17 GM PACKET PO SCH ×2 (10:08→22:27)
[2021-09-14] MEDS: ISOSORBIDE MONONITRATE 30 MG TAB.SR.24H (FP) PO SCH (10:08)
[2021-09-14] MEDS: APIXABAN 2.5 MG TABLET PO SCH ×2 (10:09→22:27)
[2021-09-14] MEDS: ESCITALOPRAM OXALATE 20 MG TABLET PO SCH (10:09)
[2021-09-14] MEDS: PANTOPRAZOLE 40 MG TABLET PO SCH (10:09)
[2021-09-14] MEDS: amLODIPine BESYLATE 5 MG TABLET (FP) PO SCH (10:09)
[2021-09-14] MEDS ORDERED: PT OWN MED DRAWER 7, Y5N ONE ×3 (10:27→22:22)
[2021-09-14] MEDS ORDERED: FUROSEMIDE 40 MG/4 ML INJECTABLE VIAL IVPUSH ONE ×2 (10:48→17:39)
[2021-09-14 14:30] VITALS: BMI 34.2
[2021-09-14] MEDS ORDERED: CHLORHEXIDINE GLUCONATE 4% CLEANSER FOR DECOLONIZATION TP SCH (22:00)
[2021-09-14] MEDS: risperiDONE 1 MG TABLET PO SCH (22:26)
[2021-09-14] MEDS: traZODone HCL 50 MG TABLET (FP) PO SCH (22:26)
[2021-09-14] MEDS: ATORVASTATIN CA 20 MG TABLET (FP) PO SCH (22:26)
[2021-09-15] MEDS ORDERED: FUROSEMIDE 40 MG/4 ML INJECTABLE VIAL IVPUSH ONE (04:09)
[2021-09-15] MEDS: hydrALAZINE HCL 25 MG TABLET (FP) PO SCH ×3 (06:29→22:02)
[2021-09-15] MEDS: GABAPENTIN 300 MG CAPSULE PO SCH ×3 (06:29→22:02)
[2021-09-15] MEDS: LEVOTHYROXINE NA 25 MCG TABLET (FP) PO SCH (06:29)
[2021-09-15] MEDS: INSULIN (LEVEMIR) 100 UNITS/ML UNITS SQ SCH (06:30)
[2021-09-15] MEDS: ALBUTEROL SO4 2.5/IPRATROPIUM 0.5 INH SOL 3 ML VIAL.NEB. NEB SCH ×2 (07:30→11:30)
[2021-09-15 08:25] LABS: BASO % 1.1 % (0-2.0); EOS % 15.5 % (0-4.5); HEMOGLOBIN 8.1 GM/dL (11.7-16.9); LYMPH % 13.2 % (8-40); MCH 29.8 pg (25.7-33.7); MCHC 32.6 g/dl (32.0-35.9); MEAN CELL VOLUME 91.5 fl (80-96); MEAN PLT VOLUME 9.6 fl (7.5-11.1); MONO % 14.2 % (3.8-10.2); PLATELET COUNT 149 10^3/uL (134-434); RBC 2.73 M/mm3 (4.00-5.60); RDW 20.3 % (11.9-15.9); WHITE BLOOD COUNT 5.5 K/mm3 (4.0-10.0)
[2021-09-15 08:38] LABS: ALBUMIN 2.6 g/dl (3.4-5.0)
[2021-09-15 08:39] LABS: BLOOD UREA NITROGEN 71.9 mg/dL (7-18)
[2021-09-15 08:42] LABS: CREATININE 4.8 mg/dL (0.55-1.3)
[2021-09-15 08:43] LABS: BILIRUBIN,TOTAL 0.6 mg/dL (0.2-1); TOT PROT 7.4 g/dl (6.4-8.2)
[2021-09-15] MEDS ORDERED: ESCITALOPRAM OXALATE 10 MG TABLET ONE (08:51)
[2021-09-15] MEDS: PANTOPRAZOLE 40 MG TABLET PO SCH (09:12)
[2021-09-15] MEDS: CARVEDILOL 25 MG TABLET (FP) PO SCH ×2 (09:12→22:02)
[2021-09-15] MEDS: APIXABAN 2.5 MG TABLET PO SCH ×2 (09:12→22:02)
[2021-09-15] MEDS: ISOSORBIDE MONONITRATE 30 MG TAB.SR.24H (FP) PO SCH (09:12)
[2021-09-15] MEDS: amLODIPine BESYLATE 5 MG TABLET (FP) PO SCH (09:12)
[2021-09-15] MEDS: POLYETHYLENE GLYCOL (HEALTHYLAX) 3350 17 GM PACKET PO SCH ×2 (09:12→22:02)
[2021-09-15] MEDS: ESCITALOPRAM OXALATE 20 MG TABLET PO SCH (09:13)
[2021-09-15] MEDS ORDERED: PT OWN MED DRAWER 7, Y5N ONE ×2 (12:18→21:50)
[2021-09-15] MEDS: SODIUM ZIRCONIUM CYCLOSILICATE (LOKELMA) 5 GM PACKET PO SCH (12:19)
[2021-09-15] MEDS: FUROSEMIDE 40 MG/4 ML INJECTABLE VIAL IVPUSH SCH (16:42)
[2021-09-15] MEDS: SEVELAMER CARBONATE 800 MG TAB (FP) PO SCH (16:42)
[2021-09-15] MEDS: ATORVASTATIN CA 20 MG TABLET (FP) PO SCH (22:02)
[2021-09-15] MEDS: risperiDONE 1 MG TABLET PO SCH (22:02)
[2021-09-15] MEDS: traZODone HCL 50 MG TABLET (FP) PO SCH (22:02)
[2021-09-16] MEDS: SIMETHICONE 80 MG TAB.CHEW (FP) PO PRN (06:47)
[2021-09-16] MEDS: LEVOTHYROXINE NA 25 MCG TABLET (FP) PO SCH (06:48)
[2021-09-16] MEDS: GABAPENTIN 300 MG CAPSULE PO SCH ×3 (06:48→21:57)
[2021-09-16] MEDS: hydrALAZINE HCL 25 MG TABLET (FP) PO SCH ×3 (06:48→21:57)
[2021-09-16 08:18] LABS: CALCIUM 8.7 mg/dL (8.5-10.1)
[2021-09-16 08:19] LABS: ALBUMIN 2.8 g/dl (3.4-5.0); BLOOD UREA NITROGEN 69.6 mg/dL (7-18)
[2021-09-16 08:22] LABS: CREATININE 4.2 mg/dL (0.55-1.3)
[2021-09-16 08:23] LABS: BILIRUBIN,TOTAL 0.8 mg/dL (0.2-1); TOT PROT 7.7 g/dl (6.4-8.2)
[2021-09-16] MEDS: ALBUTEROL SO4 2.5/IPRATROPIUM 0.5 INH SOL 3 ML VIAL.NEB. NEB PRN ×2 (08:25→14:50)
[2021-09-16] MEDS: INSULIN (LEVEMIR) 100 UNITS/ML UNITS SQ SCH (08:38)
[2021-09-16] MEDS: SEVELAMER CARBONATE 800 MG TAB (FP) PO SCH ×3 (08:39→17:23)
[2021-09-16] MEDS ORDERED: ESCITALOPRAM OXALATE 10 MG TABLET ONE (09:23)
[2021-09-16] MEDS ORDERED: PT OWN MED DRAWER 7, Y5N ONE ×3 (09:24→21:45)
[2021-09-16] MEDS: APIXABAN 2.5 MG TABLET PO SCH ×2 (09:27→21:57)
[2021-09-16] MEDS: CARVEDILOL 25 MG TABLET (FP) PO SCH ×2 (09:27→21:57)
[2021-09-16] MEDS: amLODIPine BESYLATE 5 MG TABLET (FP) PO SCH (09:27)
[2021-09-16] MEDS: ISOSORBIDE MONONITRATE 30 MG TAB.SR.24H (FP) PO SCH (09:27)
[2021-09-16] MEDS: PANTOPRAZOLE 40 MG TABLET PO SCH (09:27)
[2021-09-16] MEDS: ESCITALOPRAM OXALATE 20 MG TABLET PO SCH (09:28)
[2021-09-16] MEDS: FUROSEMIDE 40 MG/4 ML INJECTABLE VIAL IVPUSH SCH (09:28)
[2021-09-16] MEDS: POLYETHYLENE GLYCOL (HEALTHYLAX) 3350 17 GM PACKET PO SCH ×2 (09:28→21:58)
[2021-09-16] MEDS: SODIUM ZIRCONIUM CYCLOSILICATE (LOKELMA) 5 GM PACKET PO SCH (11:58)
[2021-09-16] MEDS ORDERED: FUROSEMIDE 40 MG/4 ML INJECTABLE VIAL IVPUSH ONE (16:00)
[2021-09-16] MEDS: risperiDONE 1 MG TABLET PO SCH (21:57)
[2021-09-16] MEDS: ATORVASTATIN CA 20 MG TABLET (FP) PO SCH (21:57)
[2021-09-16] MEDS: traZODone HCL 50 MG TABLET (FP) PO SCH (21:58)
[2021-09-17] MEDS: GABAPENTIN 300 MG CAPSULE PO SCH ×3 (05:50→22:31)
[2021-09-17] MEDS: hydrALAZINE HCL 25 MG TABLET (FP) PO SCH ×3 (05:50→22:30)
[2021-09-17] MEDS: LEVOTHYROXINE NA 25 MCG TABLET (FP) PO SCH (05:50)
[2021-09-17] MEDS: INSULIN (LEVEMIR) 100 UNITS/ML UNITS SQ SCH (06:22)
[2021-09-17 07:34] LABS: BASO % 0.9 % (0-2.0); HEMATOCRIT 26.8 % (35.4-49); HEMOGLOBIN 8.8 GM/dL (11.7-16.9); LYMPH % 13.5 % (8-40); MCH 30.1 pg (25.7-33.7); MEAN CELL VOLUME 91.3 fl (80-96); MEAN PLT VOLUME 9.6 fl (7.5-11.1); MONO % 13.5 % (3.8-10.2); NEUT % 55.1 % (42.8-82.8); PLATELET COUNT 158 10^3/uL (134-434); RBC 2.93 M/mm3 (4.00-5.60); RDW 19.9 % (11.9-15.9); WHITE BLOOD COUNT 5.3 K/mm3 (4.0-10.0)
[2021-09-17 07:40] LABS: ALBUMIN 2.8 g/dl (3.4-5.0); BLOOD UREA NITROGEN 68.7 mg/dL (7-18)
[2021-09-17 07:44] LABS: BILIRUBIN,TOTAL 0.9 mg/dL (0.2-1); TOT PROT 7.8 g/dl (6.4-8.2)
[2021-09-17 07:51] LABS: CREATININE 3.9 mg/dL (0.55-1.3)
[2021-09-17] MEDS: ALBUTEROL SO4 2.5/IPRATROPIUM 0.5 INH SOL 3 ML VIAL.NEB. NEB PRN ×2 (08:00→11:57)
[2021-09-17] MEDS: SEVELAMER CARBONATE 800 MG TAB (FP) PO SCH ×3 (08:21→17:26)
[2021-09-17] MEDS ORDERED: ESCITALOPRAM OXALATE 10 MG TABLET ONE (09:11)
[2021-09-17] MEDS: FUROSEMIDE 40 MG/4 ML INJECTABLE VIAL IVPUSH SCH (09:13)
[2021-09-17] MEDS: ISOSORBIDE MONONITRATE 30 MG TAB.SR.24H (FP) PO SCH (09:13)
[2021-09-17] MEDS: POLYETHYLENE GLYCOL (HEALTHYLAX) 3350 17 GM PACKET PO SCH ×2 (09:13→22:31)
[2021-09-17] MEDS: CARVEDILOL 25 MG TABLET (FP) PO SCH ×2 (09:14→22:31)
[2021-09-17] MEDS: APIXABAN 2.5 MG TABLET PO SCH ×2 (09:14→22:31)
[2021-09-17] MEDS: amLODIPine BESYLATE 5 MG TABLET (FP) PO SCH (09:14)
[2021-09-17] MEDS: PANTOPRAZOLE 40 MG TABLET PO SCH (09:14)
[2021-09-17] MEDS: ESCITALOPRAM OXALATE 20 MG TABLET PO SCH (09:15)
[2021-09-17] MEDS ORDERED: FUROSEMIDE 40 MG/4 ML INJECTABLE VIAL IVPUSH ONE (17:00)
[2021-09-17] MEDS ORDERED: PT OWN MED DRAWER 7, Y5N ONE (22:25)
[2021-09-17] MEDS: ATORVASTATIN CA 20 MG TABLET (FP) PO SCH (22:30)
[2021-09-17] MEDS: traZODone HCL 50 MG TABLET (FP) PO SCH (22:30)
[2021-09-17] MEDS: risperiDONE 1 MG TABLET PO SCH (22:31)
[2021-09-18] MEDS ORDERED: ACETAMINOPHEN 500 MG TABLET (FP) PO ONE (00:31)
[2021-09-18] MEDS ORDERED: MELATONIN 1 MG TABLET PO ONE (00:33)
[2021-09-18] MEDS: hydrALAZINE HCL 25 MG TABLET (FP) PO SCH ×3 (06:27→22:00)
[2021-09-18] MEDS: INSULIN (LEVEMIR) 100 UNITS/ML UNITS SQ SCH (06:27)
[2021-09-18] MEDS: LEVOTHYROXINE NA 25 MCG TABLET (FP) PO SCH (06:27)
[2021-09-18] MEDS: GABAPENTIN 300 MG CAPSULE PO SCH ×3 (06:27→22:01)
[2021-09-18] MEDS: ALBUTEROL SO4 2.5/IPRATROPIUM 0.5 INH SOL 3 ML VIAL.NEB. NEB PRN (07:39)
[2021-09-18] MEDS ORDERED: ESCITALOPRAM OXALATE 10 MG TABLET ONE (08:42)
[2021-09-18] MEDS: SEVELAMER CARBONATE 800 MG TAB (FP) PO SCH ×3 (08:48→16:56)
[2021-09-18] MEDS: FUROSEMIDE 40 MG/4 ML INJECTABLE VIAL IVPUSH SCH ×2 (09:07→13:19)
[2021-09-18] MEDS: POLYETHYLENE GLYCOL (HEALTHYLAX) 3350 17 GM PACKET PO SCH ×2 (09:07→22:03)
[2021-09-18] MEDS: ISOSORBIDE MONONITRATE 30 MG TAB.SR.24H (FP) PO SCH (09:07)
[2021-09-18] MEDS: amLODIPine BESYLATE 5 MG TABLET (FP) PO SCH (09:07)
[2021-09-18] MEDS: PANTOPRAZOLE 40 MG TABLET PO SCH (09:07)
[2021-09-18] MEDS: CARVEDILOL 25 MG TABLET (FP) PO SCH ×2 (09:07→22:00)
[2021-09-18] MEDS: APIXABAN 2.5 MG TABLET PO SCH ×2 (09:07→22:01)
[2021-09-18] MEDS: ESCITALOPRAM OXALATE 20 MG TABLET PO SCH (09:08)
[2021-09-18] MEDS ORDERED: PT OWN MED DRAWER 7, Y5N ONE (21:14)
[2021-09-18] MEDS: traZODone HCL 50 MG TABLET (FP) PO SCH (22:00)
[2021-09-18] MEDS: ATORVASTATIN CA 20 MG TABLET (FP) PO SCH (22:01)
[2021-09-18] MEDS: risperiDONE 1 MG TABLET PO SCH (22:01)
[2021-09-19] MEDS: FUROSEMIDE 40 MG/4 ML INJECTABLE VIAL IVPUSH SCH ×2 (05:57→13:25)
[2021-09-19] MEDS: hydrALAZINE HCL 25 MG TABLET (FP) PO SCH ×3 (05:57→21:08)
[2021-09-19] MEDS: GABAPENTIN 300 MG CAPSULE PO SCH ×3 (05:57→21:07)
[2021-09-19] MEDS: LEVOTHYROXINE NA 25 MCG TABLET (FP) PO SCH (05:58)
[2021-09-19] MEDS: INSULIN (LEVEMIR) 100 UNITS/ML UNITS SQ SCH (05:59)
[2021-09-19 07:08] LABS: BASO % 1.2 % (0-2.0); EOS % 16.3 % (0-4.5); HEMATOCRIT 26.9 % (35.4-49); HEMOGLOBIN 8.6 GM/dL (11.7-16.9); LYMPH % 14.4 % (8-40); MCH 29.6 pg (25.7-33.7); MCHC 32.1 g/dl (32.0-35.9); MEAN CELL VOLUME 92.1 fl (80-96); MEAN PLT VOLUME 9.6 fl (7.5-11.1); MONO % 13.1 % (3.8-10.2); PLATELET COUNT 155 10^3/uL (134-434); RBC 2.92 M/mm3 (4.00-5.60); RDW 19.4 % (11.9-15.9); WHITE BLOOD COUNT 5.1 K/mm3 (4.0-10.0)
[2021-09-19 07:27] LABS: CALCIUM 8.7 mg/dL (8.5-10.1)
[2021-09-19 07:28] LABS: ALBUMIN 2.8 g/dl (3.4-5.0); BLOOD UREA NITROGEN 72.8 mg/dL (7-18)
[2021-09-19 07:31] LABS: CREATININE 3.3 mg/dL (0.55-1.3)
[2021-09-19 07:33] LABS: BILIRUBIN,TOTAL 0.6 mg/dL (0.2-1); TOT PROT 7.6 g/dl (6.4-8.2)
[2021-09-19] MEDS: SEVELAMER CARBONATE 800 MG TAB (FP) PO SCH ×3 (09:00→18:30)
[2021-09-19] MEDS ORDERED: ESCITALOPRAM OXALATE 10 MG TABLET ONE (09:36)
[2021-09-19] MEDS: APIXABAN 2.5 MG TABLET PO SCH ×2 (10:05→21:07)
[2021-09-19] MEDS: POLYETHYLENE GLYCOL (HEALTHYLAX) 3350 17 GM PACKET PO SCH ×2 (10:05→21:13)
[2021-09-19] MEDS: PANTOPRAZOLE 40 MG TABLET PO SCH (10:06)
[2021-09-19] MEDS: ISOSORBIDE MONONITRATE 30 MG TAB.SR.24H (FP) PO SCH (10:06)
[2021-09-19] MEDS: amLODIPine BESYLATE 5 MG TABLET (FP) PO SCH (10:06)
[2021-09-19] MEDS: ESCITALOPRAM OXALATE 20 MG TABLET PO SCH (10:08)
[2021-09-19] MEDS: CARVEDILOL 25 MG TABLET (FP) PO SCH ×2 (10:14→21:07)
[2021-09-19] MEDS ORDERED: PT OWN MED DRAWER 7, Y5N ONE (21:05)
[2021-09-19] MEDS: traZODone HCL 50 MG TABLET (FP) PO SCH (21:07)
[2021-09-19] MEDS: ATORVASTATIN CA 20 MG TABLET (FP) PO SCH (21:07)
[2021-09-19] MEDS: risperiDONE 1 MG TABLET PO SCH (21:08)
[2021-09-20] MEDS: GABAPENTIN 300 MG CAPSULE PO SCH ×3 (05:34→21:33)
[2021-09-20] MEDS: hydrALAZINE HCL 25 MG TABLET (FP) PO SCH ×3 (05:34→21:33)
[2021-09-20] MEDS: FUROSEMIDE 40 MG/4 ML INJECTABLE VIAL IVPUSH SCH (05:34)
[2021-09-20] MEDS: LEVOTHYROXINE NA 25 MCG TABLET (FP) PO SCH (05:34)
[2021-09-20] MEDS: INSULIN (LEVEMIR) 100 UNITS/ML UNITS SQ SCH (06:22)
[2021-09-20 09:09] LABS: EOS % 11.3 % (0-4.5); HEMATOCRIT 27.3 % (35.4-49); HEMOGLOBIN 8.8 GM/dL (11.7-16.9); LYMPH % 10.8 % (8-40); MCH 29.8 pg (25.7-33.7); MCHC 32.4 g/dl (32.0-35.9); MEAN CELL VOLUME 92.1 fl (80-96); MEAN PLT VOLUME 9.8 fl (7.5-11.1); MONO % 10.8 % (3.8-10.2); NEUT % 66.1 % (42.8-82.8); PLATELET COUNT 164 10^3/uL (134-434); RBC 2.96 M/mm3 (4.00-5.60); RDW 19.4 % (11.9-15.9); WHITE BLOOD COUNT 6.3 K/mm3 (4.0-10.0)
[2021-09-20] MEDS ORDERED: ESCITALOPRAM OXALATE 10 MG TABLET ONE (09:32)
[2021-09-20] MEDS: SEVELAMER CARBONATE 800 MG TAB (FP) PO SCH ×3 (09:56→17:30)
[2021-09-20] MEDS: POLYETHYLENE GLYCOL (HEALTHYLAX) 3350 17 GM PACKET PO SCH ×2 (09:56→21:34)
[2021-09-20] MEDS: ESCITALOPRAM OXALATE 20 MG TABLET PO SCH (09:57)
[2021-09-20] MEDS: amLODIPine BESYLATE 5 MG TABLET (FP) PO SCH (09:57)
[2021-09-20] MEDS: APIXABAN 2.5 MG TABLET PO SCH ×2 (09:57→21:33)
[2021-09-20] MEDS: ISOSORBIDE MONONITRATE 30 MG TAB.SR.24H (FP) PO SCH (09:57)
[2021-09-20] MEDS: PANTOPRAZOLE 40 MG TABLET PO SCH (09:58)
[2021-09-20] MEDS: CARVEDILOL 25 MG TABLET (FP) PO SCH ×2 (09:58→21:34)
[2021-09-20 11:41] LABS: ALBUMIN 2.9 g/dl (3.4-5.0); BLOOD UREA NITROGEN 75.1 mg/dL (7-18); CALCIUM 8.8 mg/dL (8.5-10.1)
[2021-09-20 11:44] LABS: CREATININE 3.5 mg/dL (0.55-1.3)
[2021-09-20 11:46] LABS: BILIRUBIN,TOTAL 1.2 mg/dL (0.2-1); TOT PROT 7.8 g/dl (6.4-8.2)
[2021-09-20] MEDS: FUROSEMIDE 40 MG TABLET (FP) PO SCH (13:45)
[2021-09-20] MEDS ORDERED: FUROSEMIDE 20 MG TABLET (FP) PO SCH (14:00)
[2021-09-20] MEDS ORDERED: PT OWN MED DRAWER 7, Y5N ONE (21:28)
[2021-09-20] MEDS: risperiDONE 1 MG TABLET PO SCH (21:33)
[2021-09-20] MEDS: ATORVASTATIN CA 20 MG TABLET (FP) PO SCH (21:34)
[2021-09-20] MEDS: traZODone HCL 50 MG TABLET (FP) PO SCH (21:34)
[2021-09-21] MEDS: hydrALAZINE HCL 25 MG TABLET (FP) PO SCH ×3 (06:42→22:14)
[2021-09-21] MEDS: GABAPENTIN 300 MG CAPSULE PO SCH ×3 (06:42→22:14)
[2021-09-21] MEDS: FUROSEMIDE 40 MG TABLET (FP) PO SCH ×2 (06:42→14:08)
[2021-09-21] MEDS: LEVOTHYROXINE NA 25 MCG TABLET (FP) PO SCH (06:42)
[2021-09-21] MEDS: INSULIN (LEVEMIR) 100 UNITS/ML UNITS SQ SCH (06:45)
[2021-09-21 06:59] LABS: BASO % 1.1 % (0-2.0); EOS % 11.9 % (0-4.5); HEMATOCRIT 25.7 % (35.4-49); HEMOGLOBIN 8.3 GM/dL (11.7-16.9); LYMPH % 13.5 % (8-40); MCH 29.8 pg (25.7-33.7); MCHC 32.2 g/dl (32.0-35.9); MEAN CELL VOLUME 92.4 fl (80-96); MEAN PLT VOLUME 9.4 fl (7.5-11.1); MONO % 14.7 % (3.8-10.2); NEUT % 58.8 % (42.8-82.8); PLATELET COUNT 143 10^3/uL (134-434); RBC 2.78 M/mm3 (4.00-5.60); RDW 19.1 % (11.9-15.9); WHITE BLOOD COUNT 4.9 K/mm3 (4.0-10.0)
[2021-09-21 07:59] LABS: CALCIUM 8.9 mg/dL (8.5-10.1)
[2021-09-21 08:00] LABS: ALBUMIN 2.8 g/dl (3.4-5.0); BLOOD UREA NITROGEN 81.9 mg/dL (7-18)
[2021-09-21 08:03] LABS: CREATININE 3.6 mg/dL (0.55-1.3)
[2021-09-21 08:05] LABS: BILIRUBIN,TOTAL 0.7 mg/dL (0.2-1); TOT PROT 7.5 g/dl (6.4-8.2)
[2021-09-21] MEDS: SEVELAMER CARBONATE 800 MG TAB (FP) PO SCH ×3 (08:43→17:20)
[2021-09-21] MEDS ORDERED: ESCITALOPRAM OXALATE 10 MG TABLET ONE (09:06)
[2021-09-21] MEDS: ISOSORBIDE MONONITRATE 30 MG TAB.SR.24H (FP) PO SCH (09:34)
[2021-09-21] MEDS: CARVEDILOL 25 MG TABLET (FP) PO SCH ×2 (09:34→22:14)
[2021-09-21] MEDS: PANTOPRAZOLE 40 MG TABLET PO SCH (09:34)
[2021-09-21] MEDS: POLYETHYLENE GLYCOL (HEALTHYLAX) 3350 17 GM PACKET PO SCH ×2 (09:34→22:15)
[2021-09-21] MEDS: amLODIPine BESYLATE 5 MG TABLET (FP) PO SCH (09:34)
[2021-09-21] MEDS: APIXABAN 2.5 MG TABLET PO SCH ×2 (09:35→22:14)
[2021-09-21] MEDS: ESCITALOPRAM OXALATE 20 MG TABLET PO SCH (09:35)
[2021-09-21] MEDS ORDERED: PT OWN MED DRAWER 7, Y5N ONE (22:01)
[2021-09-21] MEDS: risperiDONE 1 MG TABLET PO SCH (22:14)
[2021-09-21] MEDS: ATORVASTATIN CA 20 MG TABLET (FP) PO SCH (22:14)
[2021-09-21] MEDS: traZODone HCL 50 MG TABLET (FP) PO SCH (22:14)
[2021-09-22] MEDS: SIMETHICONE 80 MG TAB.CHEW (FP) PO PRN (04:03)
[2021-09-22 06:57] LABS: BASO % 1.1 % (0-2.0); EOS % 11.2 % (0-4.5); HEMOGLOBIN 8.4 GM/dL (11.7-16.9); LYMPH % 16.5 % (8-40); MCH 29.8 pg (25.7-33.7); MCHC 32.2 g/dl (32.0-35.9); MEAN CELL VOLUME 92.4 fl (80-96); MEAN PLT VOLUME 9.6 fl (7.5-11.1); MONO % 16.7 % (3.8-10.2); NEUT % 54.5 % (42.8-82.8); PLATELET COUNT 147 10^3/uL (134-434); RBC 2.82 M/mm3 (4.00-5.60); RDW 19.2 % (11.9-15.9); WHITE BLOOD COUNT 4.5 K/mm3 (4.0-10.0)
[2021-09-22] MEDS: LEVOTHYROXINE NA 25 MCG TABLET (FP) PO SCH (07:00)
[2021-09-22] MEDS: FUROSEMIDE 40 MG TABLET (FP) PO SCH ×2 (07:00→15:01)
[2021-09-22] MEDS: INSULIN (LEVEMIR) 100 UNITS/ML UNITS SQ SCH (07:00)
[2021-09-22] MEDS: GABAPENTIN 300 MG CAPSULE PO SCH ×3 (07:00→21:10)
[2021-09-22] MEDS: hydrALAZINE HCL 25 MG TABLET (FP) PO SCH ×3 (07:00→21:11)
[2021-09-22 07:25] LABS: ALBUMIN 2.7 g/dl (3.4-5.0); CALCIUM 8.9 mg/dL (8.5-10.1)
[2021-09-22 07:26] LABS: BLOOD UREA NITROGEN 83.8 mg/dL (7-18)
[2021-09-22 07:29] LABS: CREATININE 3.5 mg/dL (0.55-1.3)
[2021-09-22 07:30] LABS: BILIRUBIN,TOTAL 0.7 mg/dL (0.2-1); TOT PROT 7.4 g/dl (6.4-8.2)
[2021-09-22] MEDS ORDERED: ESCITALOPRAM OXALATE 10 MG TABLET ONE (09:40)
[2021-09-22] MEDS: SEVELAMER CARBONATE 800 MG TAB (FP) PO SCH ×3 (09:45→17:27)
[2021-09-22] MEDS: PANTOPRAZOLE 40 MG TABLET PO SCH (09:45)
[2021-09-22] MEDS: CARVEDILOL 25 MG TABLET (FP) PO SCH ×2 (09:48→21:09)
[2021-09-22] MEDS: APIXABAN 2.5 MG TABLET PO SCH ×2 (09:48→21:09)
[2021-09-22] MEDS: amLODIPine BESYLATE 5 MG TABLET (FP) PO SCH (09:48)
[2021-09-22] MEDS: ISOSORBIDE MONONITRATE 30 MG TAB.SR.24H (FP) PO SCH (09:48)
[2021-09-22] MEDS: ESCITALOPRAM OXALATE 20 MG TABLET PO SCH (09:51)
[2021-09-22] MEDS: POLYETHYLENE GLYCOL (HEALTHYLAX) 3350 17 GM PACKET PO SCH ×2 (10:02→21:11)
[2021-09-22] MEDS ORDERED: diphenhydrAMINE HCL 25 MG CAPSULE (FP) PO ONE ×2 (17:49→18:47)
[2021-09-22] MEDS ORDERED: HYDROCORTISONE 0.5% TOPICAL CREAM 30 GM TUBE TP PRN (17:49)
[2021-09-22] MEDS ORDERED: PT OWN MED DRAWER 7, Y5N ONE (21:05)
[2021-09-22] MEDS: traZODone HCL 50 MG TABLET (FP) PO SCH (21:09)
[2021-09-22] MEDS: risperiDONE 1 MG TABLET PO SCH (21:11)
[2021-09-22] MEDS: ATORVASTATIN CA 20 MG TABLET (FP) PO SCH (21:11)
[2021-09-23] MEDS: FUROSEMIDE 40 MG TABLET (FP) PO SCH ×2 (06:18→15:44)
[2021-09-23] MEDS: GABAPENTIN 300 MG CAPSULE PO SCH ×3 (06:19→21:07)
[2021-09-23] MEDS: INSULIN (LEVEMIR) 100 UNITS/ML UNITS SQ SCH (06:19)
[2021-09-23] MEDS: LEVOTHYROXINE NA 25 MCG TABLET (FP) PO SCH (06:19)
[2021-09-23] MEDS: hydrALAZINE HCL 25 MG TABLET (FP) PO SCH ×3 (06:19→21:07)
[2021-09-23 08:35] LABS: ALBUMIN 2.8 g/dl (3.4-5.0); CALCIUM 8.4 mg/dL (8.5-10.1)
[2021-09-23 08:36] LABS: BLOOD UREA NITROGEN 81.8 mg/dL (7-18)
[2021-09-23 08:39] LABS: CREATININE 3.7 mg/dL (0.55-1.3)
[2021-09-23 08:40] LABS: BILIRUBIN,TOTAL 0.7 mg/dL (0.2-1); TOT PROT 7.4 g/dl (6.4-8.2)
[2021-09-23] MEDS: SEVELAMER CARBONATE 800 MG TAB (FP) PO SCH ×3 (08:55→17:24)
[2021-09-23] MEDS ORDERED: ESCITALOPRAM OXALATE 10 MG TABLET ONE (09:48)
[2021-09-23] MEDS: ESCITALOPRAM OXALATE 20 MG TABLET PO SCH (09:51)
[2021-09-23] MEDS: CARVEDILOL 25 MG TABLET (FP) PO SCH ×2 (09:51→21:08)
[2021-09-23] MEDS: ISOSORBIDE MONONITRATE 30 MG TAB.SR.24H (FP) PO SCH (09:51)
[2021-09-23] MEDS: PANTOPRAZOLE 40 MG TABLET PO SCH (09:51)
[2021-09-23] MEDS: APIXABAN 2.5 MG TABLET PO SCH ×2 (09:51→21:07)
[2021-09-23] MEDS: POLYETHYLENE GLYCOL (HEALTHYLAX) 3350 17 GM PACKET PO SCH ×2 (09:51→21:08)
[2021-09-23] MEDS: amLODIPine BESYLATE 5 MG TABLET (FP) PO SCH (09:51)
[2021-09-23] MEDS ORDERED: METOLAZONE 5 MG TABLET PO ONE (13:58)
[2021-09-23] MEDS ORDERED: PT OWN MED DRAWER 7, Y5N ONE ×2 (14:33→21:01)
[2021-09-23] MEDS: risperiDONE 1 MG TABLET PO SCH (21:07)
[2021-09-23] MEDS: ATORVASTATIN CA 20 MG TABLET (FP) PO SCH (21:07)
[2021-09-23] MEDS: traZODone HCL 50 MG TABLET (FP) PO SCH (21:08)
[2021-09-24] MEDS: LEVOTHYROXINE NA 25 MCG TABLET (FP) PO SCH (05:39)
[2021-09-24] MEDS: GABAPENTIN 300 MG CAPSULE PO SCH ×3 (05:39→21:29)
[2021-09-24] MEDS: hydrALAZINE HCL 25 MG TABLET (FP) PO SCH ×3 (05:39→21:28)
[2021-09-24] MEDS: FUROSEMIDE 40 MG TABLET (FP) PO SCH ×2 (05:40→13:55)
[2021-09-24] MEDS: INSULIN (LEVEMIR) 100 UNITS/ML UNITS SQ SCH (06:22)
[2021-09-24] MEDS: SEVELAMER CARBONATE 800 MG TAB (FP) PO SCH ×3 (08:07→17:46)
[2021-09-24] MEDS ORDERED: ESCITALOPRAM OXALATE 10 MG TABLET ONE (10:00)
[2021-09-24] MEDS: ISOSORBIDE MONONITRATE 30 MG TAB.SR.24H (FP) PO SCH (10:09)
[2021-09-24] MEDS: amLODIPine BESYLATE 5 MG TABLET (FP) PO SCH (10:10)
[2021-09-24] MEDS: PANTOPRAZOLE 40 MG TABLET PO SCH (10:10)
[2021-09-24] MEDS: POLYETHYLENE GLYCOL (HEALTHYLAX) 3350 17 GM PACKET PO SCH ×2 (10:10→21:29)
[2021-09-24] MEDS: APIXABAN 2.5 MG TABLET PO SCH ×2 (10:10→21:28)
[2021-09-24] MEDS: ESCITALOPRAM OXALATE 20 MG TABLET PO SCH (10:11)
[2021-09-24] MEDS: CARVEDILOL 25 MG TABLET (FP) PO SCH ×2 (10:43→21:29)
[2021-09-24 17:23] LABS: HEMATOCRIT 25.6 % (35.4-49); HEMOGLOBIN 8.2 GM/dL (11.7-16.9); MCH 29.3 pg (25.7-33.7); MCHC 32.1 g/dl (32.0-35.9); MEAN CELL VOLUME 91.4 fl (80-96); MEAN PLT VOLUME 9.5 fl (7.5-11.1); PLATELET COUNT 137 10^3/uL (134-434); RDW 18.4 % (11.9-15.9); WHITE BLOOD COUNT 4.9 K/mm3 (4.0-10.0)
[2021-09-24 17:44] LABS: CALCIUM 8.4 mg/dL (8.5-10.1)
[2021-09-24 17:45] LABS: ALBUMIN 2.7 g/dl (3.4-5.0); BLOOD UREA NITROGEN 88.3 mg/dL (7-18)
[2021-09-24 17:48] LABS: CREATININE 3.4 mg/dL (0.55-1.3)
[2021-09-24 17:50] LABS: BILIRUBIN,TOTAL 0.6 mg/dL (0.2-1); TOT PROT 7.1 g/dl (6.4-8.2)
[2021-09-24] MEDS ORDERED: PT OWN MED DRAWER 7, Y5N ONE (21:26)
[2021-09-24] MEDS: ATORVASTATIN CA 20 MG TABLET (FP) PO SCH (21:28)
[2021-09-24] MEDS: traZODone HCL 50 MG TABLET (FP) PO SCH (21:28)
[2021-09-24] MEDS: risperiDONE 1 MG TABLET PO SCH (21:28)
[2021-09-25] MEDS: LEVOTHYROXINE NA 25 MCG TABLET (FP) PO SCH (06:26)
[2021-09-25] MEDS: FUROSEMIDE 40 MG TABLET (FP) PO SCH ×2 (06:26→15:01)
[2021-09-25] MEDS: GABAPENTIN 300 MG CAPSULE PO SCH ×3 (06:26→22:18)
[2021-09-25] MEDS: INSULIN (LEVEMIR) 100 UNITS/ML UNITS SQ SCH (06:26)
[2021-09-25] MEDS: hydrALAZINE HCL 25 MG TABLET (FP) PO SCH ×3 (06:26→22:17)
[2021-09-25] MEDS ORDERED: ESCITALOPRAM OXALATE 10 MG TABLET ONE (09:31)
[2021-09-25] MEDS: SEVELAMER CARBONATE 800 MG TAB (FP) PO SCH ×3 (09:41→18:05)
[2021-09-25] MEDS: CARVEDILOL 25 MG TABLET (FP) PO SCH ×2 (09:42→22:17)
[2021-09-25] MEDS: ISOSORBIDE MONONITRATE 30 MG TAB.SR.24H (FP) PO SCH (09:42)
[2021-09-25] MEDS: APIXABAN 2.5 MG TABLET PO SCH ×2 (09:42→22:17)
[2021-09-25] MEDS: PANTOPRAZOLE 40 MG TABLET PO SCH (09:42)
[2021-09-25] MEDS: ESCITALOPRAM OXALATE 20 MG TABLET PO SCH (09:42)
[2021-09-25] MEDS: amLODIPine BESYLATE 5 MG TABLET (FP) PO SCH (09:42)
[2021-09-25] MEDS: POLYETHYLENE GLYCOL (HEALTHYLAX) 3350 17 GM PACKET PO SCH ×2 (09:43→22:18)
[2021-09-25] MEDS: traZODone HCL 50 MG TABLET (FP) PO SCH (22:17)
[2021-09-25] MEDS: ATORVASTATIN CA 20 MG TABLET (FP) PO SCH (22:18)
[2021-09-25] MEDS ORDERED: PT OWN MED DRAWER 7, Y5N ONE (22:20)
[2021-09-25] MEDS: risperiDONE 1 MG TABLET PO SCH (22:20)
[2021-09-26] MEDS: INSULIN (LEVEMIR) 100 UNITS/ML UNITS SQ SCH (07:31)
[2021-09-26] MEDS ORDERED: TAMSULOSIN HCL 0.4 MG CAP PO ONE (08:30)
[2021-09-26] MEDS: SEVELAMER CARBONATE 800 MG TAB (FP) PO SCH ×3 (08:45→17:45)
[2021-09-26] MEDS: FUROSEMIDE 40 MG TABLET (FP) PO SCH ×2 (08:46→14:33)
[2021-09-26] MEDS: LEVOTHYROXINE NA 25 MCG TABLET (FP) PO SCH (08:48)
[2021-09-26] MEDS: hydrALAZINE HCL 25 MG TABLET (FP) PO SCH ×3 (08:48→21:39)
[2021-09-26] MEDS: GABAPENTIN 300 MG CAPSULE PO SCH ×3 (08:49→21:39)
[2021-09-26] MEDS ORDERED: ESCITALOPRAM OXALATE 10 MG TABLET ONE (10:08)
[2021-09-26] MEDS: ESCITALOPRAM OXALATE 20 MG TABLET PO SCH (10:43)
[2021-09-26] MEDS: amLODIPine BESYLATE 5 MG TABLET (FP) PO SCH (10:43)
[2021-09-26] MEDS: CARVEDILOL 25 MG TABLET (FP) PO SCH ×2 (10:43→21:40)
[2021-09-26] MEDS: PANTOPRAZOLE 40 MG TABLET PO SCH (10:43)
[2021-09-26] MEDS: ISOSORBIDE MONONITRATE 30 MG TAB.SR.24H (FP) PO SCH (10:43)
[2021-09-26] MEDS: APIXABAN 2.5 MG TABLET PO SCH ×2 (10:43→21:40)
[2021-09-26] MEDS: POLYETHYLENE GLYCOL (HEALTHYLAX) 3350 17 GM PACKET PO SCH ×2 (10:44→21:40)
[2021-09-26] MEDS ORDERED: METOLAZONE 5 MG TABLET PO ONE (11:07)
[2021-09-26] MEDS ORDERED: PT OWN MED DRAWER 7, Y5N ONE (21:36)
[2021-09-26] MEDS: traZODone HCL 50 MG TABLET (FP) PO SCH (21:40)
[2021-09-26] MEDS: risperiDONE 1 MG TABLET PO SCH (21:40)
[2021-09-26] MEDS: ATORVASTATIN CA 20 MG TABLET (FP) PO SCH (21:40)
[2021-09-27] MEDS: FUROSEMIDE 40 MG TABLET (FP) PO SCH ×2 (06:16→13:54)
[2021-09-27] MEDS: LEVOTHYROXINE NA 25 MCG TABLET (FP) PO SCH (06:16)
[2021-09-27] MEDS: hydrALAZINE HCL 25 MG TABLET (FP) PO SCH ×3 (06:16→21:34)
[2021-09-27] MEDS: GABAPENTIN 300 MG CAPSULE PO SCH ×3 (06:16→21:33)
[2021-09-27] MEDS: INSULIN (LEVEMIR) 100 UNITS/ML UNITS SQ SCH (06:20)
[2021-09-27] MEDS ORDERED: ESCITALOPRAM OXALATE 10 MG TABLET ONE (09:24)
[2021-09-27] MEDS: POLYETHYLENE GLYCOL (HEALTHYLAX) 3350 17 GM PACKET PO SCH ×2 (09:25→21:34)
[2021-09-27] MEDS: SEVELAMER CARBONATE 800 MG TAB (FP) PO SCH ×3 (09:25→17:20)
[2021-09-27] MEDS: ISOSORBIDE MONONITRATE 30 MG TAB.SR.24H (FP) PO SCH (09:25)
[2021-09-27] MEDS: PANTOPRAZOLE 40 MG TABLET PO SCH (09:25)
[2021-09-27] MEDS: CARVEDILOL 25 MG TABLET (FP) PO SCH ×2 (09:26→21:34)
[2021-09-27] MEDS: amLODIPine BESYLATE 5 MG TABLET (FP) PO SCH (09:26)
[2021-09-27] MEDS: ESCITALOPRAM OXALATE 20 MG TABLET PO SCH (09:26)
[2021-09-27] MEDS: APIXABAN 2.5 MG TABLET PO SCH ×2 (09:26→21:34)
[2021-09-27] MEDS: TAMSULOSIN HCL 0.4 MG CAP PO SCH (09:26)
[2021-09-27] MEDS ORDERED: METOLAZONE 5 MG TABLET PO ONE (14:01)
[2021-09-27] MEDS ORDERED: PT OWN MED DRAWER 7, Y5N ONE ×2 (14:44→21:38)
[2021-09-27] MEDS: ATORVASTATIN CA 20 MG TABLET (FP) PO SCH (21:33)
[2021-09-27] MEDS: traZODone HCL 50 MG TABLET (FP) PO SCH (21:38)
[2021-09-27] MEDS: risperiDONE 1 MG TABLET PO SCH (21:39)
[2021-09-28] MEDS: hydrALAZINE HCL 25 MG TABLET (FP) PO SCH ×3 (06:43→22:12)
[2021-09-28] MEDS: LEVOTHYROXINE NA 25 MCG TABLET (FP) PO SCH (06:43)
[2021-09-28] MEDS: FUROSEMIDE 40 MG TABLET (FP) PO SCH ×2 (06:43→13:32)
[2021-09-28] MEDS: GABAPENTIN 300 MG CAPSULE PO SCH ×3 (06:46→22:12)
[2021-09-28] MEDS: INSULIN (LEVEMIR) 100 UNITS/ML UNITS SQ SCH (06:49)
[2021-09-28] MEDS ORDERED: INSULIN (LEVEMIR) 100 UNITS/ML UNITS SQ ONE (08:16)
[2021-09-28] MEDS: amLODIPine BESYLATE 5 MG TABLET (FP) PO SCH (09:47)
[2021-09-28] MEDS: SEVELAMER CARBONATE 800 MG TAB (FP) PO SCH ×3 (09:47→17:07)
[2021-09-28] MEDS: ISOSORBIDE MONONITRATE 30 MG TAB.SR.24H (FP) PO SCH (09:47)
[2021-09-28] MEDS: CARVEDILOL 25 MG TABLET (FP) PO SCH ×2 (09:47→22:13)
[2021-09-28] MEDS ORDERED: ESCITALOPRAM OXALATE 10 MG TABLET ONE (09:47)
[2021-09-28] MEDS: PANTOPRAZOLE 40 MG TABLET PO SCH (09:48)
[2021-09-28] MEDS: POLYETHYLENE GLYCOL (HEALTHYLAX) 3350 17 GM PACKET PO SCH ×2 (09:48→22:12)
[2021-09-28] MEDS: ESCITALOPRAM OXALATE 20 MG TABLET PO SCH (09:48)
[2021-09-28] MEDS: TAMSULOSIN HCL 0.4 MG CAP PO SCH (09:48)
[2021-09-28 11:07] LABS: ALBUMIN 2.8 g/dl (3.4-5.0); BILIRUBIN,TOTAL 0.6 mg/dL (0.2-1); BLOOD UREA NITROGEN 97.2 mg/dL (7-18); CALCIUM 8.7 mg/dL (8.5-10.1); TOT PROT 7.3 g/dl (6.4-8.2)
[2021-09-28] MEDS ORDERED: ALBUMIN HUMAN 25% 12.5 GM/50 ML VIAL IVPB SCH (11:30)
[2021-09-28 11:31] LABS: INR 1.61 (0.83-1.09); PROTHROMBIN TIME (PATIENT) 18.9 SEC (9.7-13.0)
[2021-09-28] MEDS ORDERED: ALBUMIN HUMAN 25% 100 ML VIAL IVPB SCH ×2 (12:02→17:00)
[2021-09-28] MEDS ORDERED: SODIUM ZIRCONIUM CYCLOSILICATE (LOKELMA) 5 GM PACKET PO ONE (21:32)
[2021-09-28] MEDS ORDERED: PT OWN MED DRAWER 7, Y5N ONE (21:43)
[2021-09-28] MEDS: risperiDONE 1 MG TABLET PO SCH (22:12)
[2021-09-28] MEDS: traZODone HCL 50 MG TABLET (FP) PO SCH (22:12)
[2021-09-28] MEDS: ATORVASTATIN CA 20 MG TABLET (FP) PO SCH (22:13)
[2021-09-29] MEDS: FUROSEMIDE 40 MG TABLET (FP) PO SCH (06:45)
[2021-09-29] MEDS: hydrALAZINE HCL 25 MG TABLET (FP) PO SCH ×3 (06:46→22:36)
[2021-09-29] MEDS: LEVOTHYROXINE NA 25 MCG TABLET (FP) PO SCH (06:46)
[2021-09-29] MEDS: GABAPENTIN 300 MG CAPSULE PO SCH ×3 (06:46→22:36)
[2021-09-29 07:10] LABS: BASO % 1.2 % (0-2.0); EOS % 9.3 % (0-4.5); HEMATOCRIT 26.2 % (35.4-49); HEMOGLOBIN 8.4 GM/dL (11.7-16.9); LYMPH % 21.4 % (8-40); MCH 29.2 pg (25.7-33.7); MCHC 32.1 g/dl (32.0-35.9); MEAN CELL VOLUME 90.9 fl (80-96); MEAN PLT VOLUME 10.4 fl (7.5-11.1); MONO % 16.6 % (3.8-10.2); NEUT % 51.5 % (42.8-82.8); PLATELET COUNT 131 10^3/uL (134-434); RBC 2.88 M/mm3 (4.00-5.60); RDW 17.9 % (11.9-15.9); WHITE BLOOD COUNT 4.4 K/mm3 (4.0-10.0)
[2021-09-29 07:46] LABS: ALBUMIN 3.1 g/dl (3.4-5.0); BILIRUBIN,TOTAL 0.7 mg/dL (0.2-1); CALCIUM 8.7 mg/dL (8.5-10.1); CREATININE 4.3 mg/dL (0.55-1.3); TOT PROT 7.5 g/dl (6.4-8.2)
[2021-09-29] MEDS: SEVELAMER CARBONATE 800 MG TAB (FP) PO SCH ×3 (08:48→17:35)
[2021-09-29] MEDS: SIMETHICONE 80 MG TAB.CHEW (FP) PO PRN (08:48)
[2021-09-29] MEDS: TAMSULOSIN HCL 0.4 MG CAP PO SCH (08:48)
[2021-09-29] MEDS ORDERED: LACTULOSE 20 GM/30 ML UDC (FOR ORAL USE ONLY) PO PRN (09:08)
[2021-09-29] MEDS ORDERED: ESCITALOPRAM OXALATE 10 MG TABLET ONE (09:57)
[2021-09-29] MEDS: ESCITALOPRAM OXALATE 20 MG TABLET PO SCH (10:01)
[2021-09-29] MEDS: amLODIPine BESYLATE 5 MG TABLET (FP) PO SCH (10:01)
[2021-09-29] MEDS: ISOSORBIDE MONONITRATE 30 MG TAB.SR.24H (FP) PO SCH (10:01)
[2021-09-29] MEDS: PANTOPRAZOLE 40 MG TABLET PO SCH (10:01)
[2021-09-29] MEDS: CARVEDILOL 25 MG TABLET (FP) PO SCH ×2 (10:01→22:36)
[2021-09-29] MEDS: POLYETHYLENE GLYCOL (HEALTHYLAX) 3350 17 GM PACKET PO SCH ×2 (10:02→22:27)
[2021-09-29] MEDS ORDERED: SODIUM ZIRCONIUM CYCLOSILICATE (LOKELMA) 5 GM PACKET PO ONE (10:11)
[2021-09-29] MEDS ORDERED: SODIUM ZIRCONIUM CYCLOSILICATE (LOKELMA) 10 GM PACKET PO ONE (11:00)
[2021-09-29] MEDS: INSULIN (LEVEMIR) 100 UNITS/ML UNITS SQ SCH (12:06)
[2021-09-29] MEDS ORDERED: PT OWN MED DRAWER 7, Y5N ONE ×3 (14:14→22:29)
[2021-09-29] MEDS: FUROSEMIDE 40 MG/4 ML INJECTABLE VIAL IVPUSH SCH (14:20)
[2021-09-29] MEDS: risperiDONE 1 MG TABLET PO SCH (22:36)
[2021-09-29] MEDS: ATORVASTATIN CA 20 MG TABLET (FP) PO SCH (22:36)
[2021-09-29] MEDS: traZODone HCL 50 MG TABLET (FP) PO SCH (22:36)
[2021-09-30] MEDS: hydrALAZINE HCL 25 MG TABLET (FP) PO SCH ×3 (05:30→22:57)
[2021-09-30] MEDS: GABAPENTIN 300 MG CAPSULE PO SCH ×3 (05:30→22:57)
[2021-09-30] MEDS: FUROSEMIDE 40 MG/4 ML INJECTABLE VIAL IVPUSH SCH ×2 (05:30→13:45)
[2021-09-30] MEDS: LEVOTHYROXINE NA 25 MCG TABLET (FP) PO SCH (05:30)
[2021-09-30] MEDS: INSULIN (LEVEMIR) 100 UNITS/ML UNITS SQ SCH (06:12)
[2021-09-30] MEDS: TAMSULOSIN HCL 0.4 MG CAP PO SCH (07:55)
[2021-09-30] MEDS: SEVELAMER CARBONATE 800 MG TAB (FP) PO SCH ×3 (07:55→16:42)
[2021-09-30 08:00] LABS: BASO % 0.8 % (0-2.0); EOS % 8.6 % (0-4.5); HEMATOCRIT 26.6 % (35.4-49); HEMOGLOBIN 8.4 GM/dL (11.7-16.9); LYMPH % 17.9 % (8-40); MCH 29.1 pg (25.7-33.7); MCHC 31.8 g/dl (32.0-35.9); MEAN CELL VOLUME 91.6 fl (80-96); MEAN PLT VOLUME 10.4 fl (7.5-11.1); MONO % 14.5 % (3.8-10.2); NEUT % 58.2 % (42.8-82.8); PLATELET COUNT 128 10^3/uL (134-434); RDW 17.7 % (11.9-15.9); WHITE BLOOD COUNT 4.7 K/mm3 (4.0-10.0)
[2021-09-30] MEDS ORDERED: ESCITALOPRAM OXALATE 10 MG TABLET ONE (09:14)
[2021-09-30] MEDS: CARVEDILOL 25 MG TABLET (FP) PO SCH ×2 (09:17→23:45)
[2021-09-30] MEDS: POLYETHYLENE GLYCOL (HEALTHYLAX) 3350 17 GM PACKET PO SCH ×2 (09:18→22:57)
[2021-09-30] MEDS: amLODIPine BESYLATE 5 MG TABLET (FP) PO SCH (09:18)
[2021-09-30] MEDS: ISOSORBIDE MONONITRATE 30 MG TAB.SR.24H (FP) PO SCH (09:18)
[2021-09-30] MEDS: ESCITALOPRAM OXALATE 20 MG TABLET PO SCH (09:18)
[2021-09-30] MEDS: PANTOPRAZOLE 40 MG TABLET PO SCH (09:18)
[2021-09-30] MEDS: SIMETHICONE 80 MG TAB.CHEW (FP) PO PRN (09:30)
[2021-09-30 12:53] LABS: ALK PHOS 204 U/L (45-117); ANION GAP 5 MMOL/L (8-16); BILIRUBIN,TOTAL 0.6 mg/dL (0.2-1); BLOOD UREA NITROGEN 104.6 mg/dL (7-18); CALCIUM 8.6 mg/dL (8.5-10.1); CHLORIDE 102 mmol/L (98-107); CO2 31 mmol/L (21-32); CREATININE 4.2 mg/dL (0.55-1.3); GLUCOSE,RANDOM 134 mg/dL (74-106); SGOT/AST 12 U/L (15-37); SGPT/ALT 10 U/L (13-61); SODIUM 138 mmol/L (136-145); TOT PROT 7.4 g/dl (6.4-8.2)
[2021-09-30] MEDS: LACTULOSE 20 GM/30 ML UDC (FOR ORAL USE ONLY) PO SCH ×2 (13:48→22:57)
[2021-09-30] MEDS ORDERED: PT OWN MED DRAWER 7, Y5N ONE ×2 (13:50→22:55)
[2021-09-30 14:31] LABS: BF WBC & OTHER NUCLEATED CELLS 1206 /mm3
[2021-09-30 15:28] LABS: BODY FLUID MACROPHAGES 60 %; BODY FLUID MESOTHELIAL 20 %; BODYL FLD EOSINOPHIL 1 %
[2021-09-30] MEDS: risperiDONE 1 MG TABLET PO SCH (22:57)
[2021-09-30] MEDS: ATORVASTATIN CA 20 MG TABLET (FP) PO SCH (22:57)
[2021-09-30] MEDS: traZODone HCL 50 MG TABLET (FP) PO SCH (22:57)
[2021-10-01] MEDS: LACTULOSE 20 GM/30 ML UDC (FOR ORAL USE ONLY) PO SCH ×4 (06:47→21:41)
[2021-10-01] MEDS: LEVOTHYROXINE NA 25 MCG TABLET (FP) PO SCH (06:47)
[2021-10-01] MEDS: hydrALAZINE HCL 25 MG TABLET (FP) PO SCH ×3 (06:47→21:41)
[2021-10-01] MEDS: INSULIN (LEVEMIR) 100 UNITS/ML UNITS SQ SCH (06:47)
[2021-10-01] MEDS: FUROSEMIDE 40 MG/4 ML INJECTABLE VIAL IVPUSH SCH (06:47)
[2021-10-01] MEDS: GABAPENTIN 300 MG CAPSULE PO SCH ×3 (06:47→21:42)
[2021-10-01] MEDS: SEVELAMER CARBONATE 800 MG TAB (FP) PO SCH ×3 (08:11→17:26)
[2021-10-01] MEDS: TAMSULOSIN HCL 0.4 MG CAP PO SCH (08:11)
[2021-10-01] MEDS ORDERED: ESCITALOPRAM OXALATE 10 MG TABLET ONE (10:01)
[2021-10-01] MEDS: ISOSORBIDE MONONITRATE 30 MG TAB.SR.24H (FP) PO SCH (10:03)
[2021-10-01] MEDS: PANTOPRAZOLE 40 MG TABLET PO SCH (10:03)
[2021-10-01] MEDS: POLYETHYLENE GLYCOL (HEALTHYLAX) 3350 17 GM PACKET PO SCH ×2 (10:03→21:42)
[2021-10-01] MEDS: amLODIPine BESYLATE 5 MG TABLET (FP) PO SCH (10:03)
[2021-10-01] MEDS: CARVEDILOL 25 MG TABLET (FP) PO SCH ×2 (10:03→21:42)
[2021-10-01] MEDS: ESCITALOPRAM OXALATE 20 MG TABLET PO SCH (10:04)
[2021-10-01] MEDS: APIXABAN 2.5 MG TABLET PO SCH ×2 (10:06→21:42)
[2021-10-01] MEDS ORDERED: PIPERACILLIN/TAZOB 2.25 GM 2.25 GM in DEXTROSE 5%-WATER - 50 ML IVPB SCH ×2 (11:15→18:00)
[2021-10-01 12:00] LABS: ARTERIAL BLD GAS O2 SATURATION 95.6 % (95-98); ARTERIAL BLOOD GAS BASE EXCESS 0.7 mmol/L (-2-2); ARTERIAL BLOOD GAS PO2 93.2 mmHg (80-100); ARTERIAL BLOOD GAS pH 7.242 (7.350-7.450)
[2021-10-01 12:03] LABS: ALLENS TEST POSITIVE
[2021-10-01] MEDS ORDERED: PIPERACILLIN/TAZOBACTAM 2.25 GM VIAL IVPB ONE (12:31)
[2021-10-01] MEDS ORDERED: DEXTROSE 5%-WATER - 50 ML IVPB ONE (12:32)
[2021-10-01 13:02] LABS: HEMATOCRIT 27.8 % (35.4-49); HEMOGLOBIN 8.8 GM/dL (11.7-16.9); LYMPH % 18.6 % (8-40); MCH 29.1 pg (25.7-33.7); MCHC 31.7 g/dl (32.0-35.9); MEAN CELL VOLUME 91.8 fl (80-96); MEAN PLT VOLUME 10.1 fl (7.5-11.1); MONO % 10.4 % (3.8-10.2); PLATELET COUNT 128 10^3/uL (134-434); RBC 3.03 M/mm3 (4.00-5.60); RDW 17.3 % (11.9-15.9)
[2021-10-01 14:27] LABS: ALBUMIN 2.8 g/dl (3.4-5.0); BILIRUBIN,TOTAL 0.6 mg/dL (0.2-1); BLOOD UREA NITROGEN 99.5 mg/dL (7-18); CALCIUM 8.5 mg/dL (8.5-10.1); CREATININE 4.4 mg/dL (0.55-1.3); TOT PROT 7.3 g/dl (6.4-8.2)
[2021-10-01 20:12] LABS: URINE APPEARANCE CLEAR; URINE BILIRUBIN NEGATIVE (NEGATIVE); URINE COLOR YELLOW; URINE GLUCOSE (UA) NEGATIVE (NEGATIVE); URINE KETONE NEGATIVE (NEGATIVE); URINE LEUK ESTERASE NEGATIVE (NEGATIVE); URINE NITRITE NEGATIVE (NEGATIVE); URINE PROTEIN NEGATIVE (NEGATIVE); URINE UROBILINOGEN 0.2 mg/dL (0.2-1.0)
[2021-10-01] MEDS: ATORVASTATIN CA 20 MG TABLET (FP) PO SCH (21:42)
[2021-10-01] MEDS: traZODone HCL 50 MG TABLET (FP) PO SCH (21:43)
[2021-10-01] MEDS: risperiDONE 1 MG TABLET PO SCH (21:43)
[2021-10-02] MEDS: GABAPENTIN 300 MG CAPSULE PO SCH (06:05)
[2021-10-02] MEDS: LEVOTHYROXINE NA 25 MCG TABLET (FP) PO SCH (06:05)
[2021-10-02] MEDS: hydrALAZINE HCL 25 MG TABLET (FP) PO SCH ×3 (06:05→21:00)
[2021-10-02] MEDS: INSULIN (LEVEMIR) 100 UNITS/ML UNITS SQ SCH (06:08)
[2021-10-02] MEDS ORDERED: ESCITALOPRAM OXALATE 10 MG TABLET ONE (08:48)
[2021-10-02] MEDS ORDERED: PT OWN MED DRAWER 7, Y5N ONE ×3 (08:49→20:47)
[2021-10-02] MEDS: LACTULOSE 20 GM/30 ML UDC (FOR ORAL USE ONLY) PO SCH ×4 (09:04→21:01)
[2021-10-02] MEDS: POLYETHYLENE GLYCOL (HEALTHYLAX) 3350 17 GM PACKET PO SCH ×2 (09:04→21:01)
[2021-10-02] MEDS: CARVEDILOL 25 MG TABLET (FP) PO SCH ×2 (09:04→21:00)
[2021-10-02] MEDS: APIXABAN 2.5 MG TABLET PO SCH ×2 (09:04→21:00)
[2021-10-02] MEDS: SEVELAMER CARBONATE 800 MG TAB (FP) PO SCH ×3 (09:04→17:08)
[2021-10-02] MEDS: amLODIPine BESYLATE 5 MG TABLET (FP) PO SCH (09:04)
[2021-10-02] MEDS: ISOSORBIDE MONONITRATE 30 MG TAB.SR.24H (FP) PO SCH (09:04)
[2021-10-02] MEDS: PANTOPRAZOLE 40 MG TABLET PO SCH (09:04)
[2021-10-02] MEDS: TAMSULOSIN HCL 0.4 MG CAP PO SCH (09:04)
[2021-10-02] MEDS: ESCITALOPRAM OXALATE 20 MG TABLET PO SCH (09:05)
[2021-10-02 10:02] LABS: BASO % 0.9 % (0-2.0); EOS % 5.5 % (0-4.5); HEMATOCRIT 26.8 % (35.4-49); HEMOGLOBIN 8.4 GM/dL (11.7-16.9); LYMPH % 22.5 % (8-40); MCH 29.3 pg (25.7-33.7); MCHC 31.5 g/dl (32.0-35.9); MEAN CELL VOLUME 92.8 fl (80-96); MEAN PLT VOLUME 10.9 fl (7.5-11.1); MONO % 13.3 % (3.8-10.2); NEUT % 57.8 % (42.8-82.8); PLATELET COUNT 127 10^3/uL (134-434); RBC 2.88 M/mm3 (4.00-5.60); WHITE BLOOD COUNT 4.6 K/mm3 (4.0-10.0)
[2021-10-02 10:19] LABS: CALCIUM 8.4 mg/dL (8.5-10.1)
[2021-10-02 10:20] LABS: ALBUMIN 2.9 g/dl (3.4-5.0); BLOOD UREA NITROGEN 99.5 mg/dL (7-18)
[2021-10-02 10:23] LABS: CREATININE 4.5 mg/dL (0.55-1.3); PHOSPHOROUS 4.1 mg/dL (2.5-4.9)
[2021-10-02 10:25] LABS: BILIRUBIN,TOTAL 0.8 mg/dL (0.2-1); TOT PROT 7.1 g/dl (6.4-8.2)
[2021-10-02] MEDS: TORSEMIDE 20 MG TABLET (FP) PO SCH (10:41)
[2021-10-02] MEDS ORDERED: risperiDONE 1 MG TABLET PO SCH (11:37)
[2021-10-02] MEDS: RIFAXIMIN 200 MG TABLET PO SCH ×2 (13:17→21:03)
[2021-10-02] MEDS: ATORVASTATIN CA 20 MG TABLET (FP) PO SCH (21:00)
[2021-10-02] MEDS: risperiDONE 0.5 MG TABLET PO SCH (21:01)
[2021-10-02] MEDS: traZODone HCL 50 MG TABLET (FP) PO SCH (21:01)
[2021-10-03 00:09] LABS: BODY FLUID ALBUMIN 2.5 g/dL (Not Estab.)
[2021-10-03] MEDS ORDERED: PT OWN MED DRAWER 7, Y5N ONE ×4 (04:55→21:43)
[2021-10-03] MEDS: RIFAXIMIN 200 MG TABLET PO SCH ×3 (05:02→21:56)
[2021-10-03] MEDS: LEVOTHYROXINE NA 25 MCG TABLET (FP) PO SCH (05:02)
[2021-10-03] MEDS: hydrALAZINE HCL 25 MG TABLET (FP) PO SCH ×3 (05:02→21:55)
[2021-10-03] MEDS: INSULIN (LEVEMIR) 100 UNITS/ML UNITS SQ SCH (06:25)
[2021-10-03] MEDS: SEVELAMER CARBONATE 800 MG TAB (FP) PO SCH ×3 (08:29→18:02)
[2021-10-03] MEDS: TAMSULOSIN HCL 0.4 MG CAP PO SCH (08:29)
[2021-10-03] MEDS ORDERED: ESCITALOPRAM OXALATE 10 MG TABLET ONE (10:09)
[2021-10-03] MEDS: LACTULOSE 20 GM/30 ML UDC (FOR ORAL USE ONLY) PO SCH ×4 (10:13→21:56)
[2021-10-03] MEDS: POLYETHYLENE GLYCOL (HEALTHYLAX) 3350 17 GM PACKET PO SCH ×2 (10:14→21:55)
[2021-10-03] MEDS: TORSEMIDE 20 MG TABLET (FP) PO SCH (10:14)
[2021-10-03] MEDS: ISOSORBIDE MONONITRATE 30 MG TAB.SR.24H (FP) PO SCH (10:15)
[2021-10-03] MEDS: PANTOPRAZOLE 40 MG TABLET PO SCH (10:15)
[2021-10-03] MEDS: amLODIPine BESYLATE 5 MG TABLET (FP) PO SCH (10:15)
[2021-10-03] MEDS: ESCITALOPRAM OXALATE 20 MG TABLET PO SCH (10:15)
[2021-10-03] MEDS: CARVEDILOL 25 MG TABLET (FP) PO SCH ×2 (10:15→21:56)
[2021-10-03] MEDS: APIXABAN 2.5 MG TABLET PO SCH ×2 (10:15→21:55)
[2021-10-03 12:17] LABS: BASO % 0.9 % (0-2.0); EOS % 5.7 % (0-4.5); HEMATOCRIT 26.1 % (35.4-49); HEMOGLOBIN 8.4 GM/dL (11.7-16.9); LYMPH % 16.2 % (8-40); MCH 29.9 pg (25.7-33.7); MCHC 32.4 g/dl (32.0-35.9); MEAN CELL VOLUME 92.6 fl (80-96); MEAN PLT VOLUME 10.4 fl (7.5-11.1); MONO % 12.8 % (3.8-10.2); NEUT % 64.4 % (42.8-82.8); PLATELET COUNT 125 10^3/uL (134-434); RBC 2.82 M/mm3 (4.00-5.60); RDW 17.7 % (11.9-15.9); WHITE BLOOD COUNT 5.8 K/mm3 (4.0-10.0)
[2021-10-03 12:30] LABS: CALCIUM 8.6 mg/dL (8.5-10.1)
[2021-10-03 12:31] LABS: ALBUMIN 2.8 g/dl (3.4-5.0); BLOOD UREA NITROGEN 97.5 mg/dL (7-18)
[2021-10-03 12:34] LABS: CREATININE 4.7 mg/dL (0.55-1.3)
[2021-10-03 12:35] LABS: BILIRUBIN,TOTAL 0.5 mg/dL (0.2-1)
[2021-10-03] MEDS: SODIUM ZIRCONIUM CYCLOSILICATE (LOKELMA) 10 GM PACKET PO SCH (13:27)
[2021-10-03] MEDS: ATORVASTATIN CA 20 MG TABLET (FP) PO SCH (21:54)
[2021-10-03] MEDS: risperiDONE 0.5 MG TABLET PO SCH (21:55)
[2021-10-03] MEDS: traZODone HCL 50 MG TABLET (FP) PO SCH (21:55)
[2021-10-04] MEDS ORDERED: PT OWN MED DRAWER 7, Y5N ONE ×4 (06:04→21:15)
[2021-10-04] MEDS: hydrALAZINE HCL 25 MG TABLET (FP) PO SCH ×3 (06:21→21:25)
[2021-10-04] MEDS: LEVOTHYROXINE NA 25 MCG TABLET (FP) PO SCH (06:21)
[2021-10-04] MEDS: INSULIN (LEVEMIR) 100 UNITS/ML UNITS SQ SCH (06:22)
[2021-10-04] MEDS: RIFAXIMIN 200 MG TABLET PO SCH ×3 (06:22→21:25)
[2021-10-04 08:38] LABS: BASO % 0.5 % (0-2.0); EOS % 6.5 % (0-4.5); HEMATOCRIT 27.4 % (35.4-49); HEMOGLOBIN 8.7 GM/dL (11.7-16.9); LYMPH % 15.5 % (8-40); MCH 29.4 pg (25.7-33.7); MCHC 31.8 g/dl (32.0-35.9); MEAN CELL VOLUME 92.5 fl (80-96); MEAN PLT VOLUME 10.9 fl (7.5-11.1); MONO % 13.2 % (3.8-10.2); NEUT % 64.3 % (42.8-82.8); PLATELET COUNT 129 10^3/uL (134-434); RBC 2.96 M/mm3 (4.00-5.60); RDW 17.8 % (11.9-15.9); WHITE BLOOD COUNT 6.1 K/mm3 (4.0-10.0)
[2021-10-04 08:48] LABS: INR 1.48 (0.83-1.09); PROTHROMBIN TIME (PATIENT) 17.4 SEC (9.7-13.0)
[2021-10-04 08:50] LABS: ACTIVATED PTT 33.4 SECONDS (25.2-36.5)
[2021-10-04] MEDS ORDERED: ESCITALOPRAM OXALATE 10 MG TABLET ONE (08:58)
[2021-10-04] MEDS: amLODIPine BESYLATE 5 MG TABLET (FP) PO SCH (09:08)
[2021-10-04] MEDS: CARVEDILOL 25 MG TABLET (FP) PO SCH ×2 (09:08→21:25)
[2021-10-04] MEDS: ISOSORBIDE MONONITRATE 30 MG TAB.SR.24H (FP) PO SCH (09:09)
[2021-10-04] MEDS: TAMSULOSIN HCL 0.4 MG CAP PO SCH (09:09)
[2021-10-04] MEDS: APIXABAN 2.5 MG TABLET PO SCH ×2 (09:09→21:25)
[2021-10-04] MEDS: LACTULOSE 20 GM/30 ML UDC (FOR ORAL USE ONLY) PO SCH ×3 (09:09→21:26)
[2021-10-04] MEDS: PANTOPRAZOLE 40 MG TABLET PO SCH (09:09)
[2021-10-04] MEDS: SEVELAMER CARBONATE 800 MG TAB (FP) PO SCH ×3 (09:09→17:27)
[2021-10-04] MEDS: POLYETHYLENE GLYCOL (HEALTHYLAX) 3350 17 GM PACKET PO SCH ×2 (09:10→21:34)
[2021-10-04] MEDS: ESCITALOPRAM OXALATE 20 MG TABLET PO SCH (09:10)
[2021-10-04] MEDS: TORSEMIDE 20 MG TABLET (FP) PO SCH ×2 (09:10→21:25)
[2021-10-04 09:13] LABS: CALCIUM 8.5 mg/dL (8.5-10.1)
[2021-10-04 09:14] LABS: ALBUMIN 2.8 g/dl (3.4-5.0)
[2021-10-04 09:17] LABS: CREATININE 4.4 mg/dL (0.55-1.3)
[2021-10-04 09:18] LABS: BILIRUBIN,TOTAL 0.6 mg/dL (0.2-1); TOT PROT 7.4 g/dl (6.4-8.2)
[2021-10-04] MEDS: SODIUM ZIRCONIUM CYCLOSILICATE (LOKELMA) 10 GM PACKET PO SCH (12:12)
[2021-10-04] MEDS ORDERED: SODIUM ZIRCONIUM CYCLOSILICATE (LOKELMA) 5 GM PACKET PO SCH (13:53)
[2021-10-04] MEDS ORDERED: METOLAZONE 2.5 MG TABLET (FP) PO ONE (15:00)
[2021-10-04] MEDS: ALBUMIN HUMAN 25% 12.5 GM/50 ML VIAL IVPB SCH ×2 (15:19→18:45)
[2021-10-04] MEDS: traZODone HCL 50 MG TABLET (FP) PO SCH (21:24)
[2021-10-04] MEDS: risperiDONE 0.5 MG TABLET PO SCH (21:25)
[2021-10-04] MEDS: ATORVASTATIN CA 20 MG TABLET (FP) PO SCH (21:25)
[2021-10-05] MEDS ORDERED: PT OWN MED DRAWER 7, Y5N ONE (05:00)
[2021-10-05] MEDS: RIFAXIMIN 200 MG TABLET PO SCH (05:17)
[2021-10-05] MEDS: hydrALAZINE HCL 25 MG TABLET (FP) PO SCH ×3 (05:17→21:20)
[2021-10-05] MEDS: LACTULOSE 20 GM/30 ML UDC (FOR ORAL USE ONLY) PO SCH ×3 (05:18→21:20)
[2021-10-05] MEDS: LEVOTHYROXINE NA 25 MCG TABLET (FP) PO SCH (05:19)
[2021-10-05] MEDS: INSULIN (LEVEMIR) 100 UNITS/ML UNITS SQ SCH (06:32)
[2021-10-05 08:15] LABS: BASO % 0.7 % (0-2.0); EOS % 5.1 % (0-4.5); HEMATOCRIT 24.6 % (35.4-49); LYMPH % 16.6 % (8-40); MCH 29.9 pg (25.7-33.7); MCHC 32.5 g/dl (32.0-35.9); MEAN CELL VOLUME 91.9 fl (80-96); MEAN PLT VOLUME 10.8 fl (7.5-11.1); MONO % 14.7 % (3.8-10.2); NEUT % 62.9 % (42.8-82.8); PLATELET COUNT 123 10^3/uL (134-434); RBC 2.67 M/mm3 (4.00-5.60); RDW 17.4 % (11.9-15.9)
[2021-10-05 08:35] LABS: CALCIUM 8.7 mg/dL (8.5-10.1)
[2021-10-05 08:36] LABS: ALBUMIN 2.8 g/dl (3.4-5.0); BLOOD UREA NITROGEN 84.9 mg/dL (7-18)
[2021-10-05 08:39] LABS: PHOSPHOROUS 3.2 mg/dL (2.5-4.9)
[2021-10-05 08:40] LABS: BILIRUBIN,TOTAL 0.8 mg/dL (0.2-1)
[2021-10-05] MEDS ORDERED: ESCITALOPRAM OXALATE 10 MG TABLET ONE (09:09)
[2021-10-05] MEDS: TAMSULOSIN HCL 0.4 MG CAP PO SCH (09:31)
[2021-10-05] MEDS: ISOSORBIDE MONONITRATE 30 MG TAB.SR.24H (FP) PO SCH (09:31)
[2021-10-05] MEDS: SEVELAMER CARBONATE 800 MG TAB (FP) PO SCH ×3 (09:31→17:19)
[2021-10-05] MEDS: PANTOPRAZOLE 40 MG TABLET PO SCH (09:32)
[2021-10-05] MEDS: APIXABAN 2.5 MG TABLET PO SCH ×2 (09:32→21:20)
[2021-10-05] MEDS: amLODIPine BESYLATE 5 MG TABLET (FP) PO SCH (09:32)
[2021-10-05] MEDS: POLYETHYLENE GLYCOL (HEALTHYLAX) 3350 17 GM PACKET PO SCH ×2 (09:32→21:20)
[2021-10-05] MEDS: CARVEDILOL 25 MG TABLET (FP) PO SCH ×2 (09:32→21:20)
[2021-10-05] MEDS: TORSEMIDE 20 MG TABLET (FP) PO SCH ×2 (09:32→21:20)
[2021-10-05] MEDS: ESCITALOPRAM OXALATE 20 MG TABLET PO SCH (09:32)
[2021-10-05] MEDS ORDERED: IRON SUCROSE INJECTION 200 MG in SODIUM CHLORIDE 90 ML IVPB ONE (11:15)
[2021-10-05] MEDS ORDERED: SPIRONOLACTONE 25 MG TABLET PO ONE (11:30)
[2021-10-05] MEDS: traZODone HCL 50 MG TABLET (FP) PO SCH (21:20)
[2021-10-05] MEDS: ATORVASTATIN CA 20 MG TABLET (FP) PO SCH (21:20)
[2021-10-05] MEDS: risperiDONE 0.5 MG TABLET PO SCH (21:20)
[2021-10-05] MEDS: ACETAMINOPHEN 325 MG TABLET (FP) PO PRN (22:45)
[2021-10-06] MEDS: INSULIN (LEVEMIR) 100 UNITS/ML UNITS SQ SCH (06:22)
[2021-10-06] MEDS: LEVOTHYROXINE NA 25 MCG TABLET (FP) PO SCH (06:23)
[2021-10-06] MEDS: LACTULOSE 20 GM/30 ML UDC (FOR ORAL USE ONLY) PO SCH ×3 (06:23→21:02)
[2021-10-06] MEDS: hydrALAZINE HCL 25 MG TABLET (FP) PO SCH ×3 (06:23→21:00)
[2021-10-06 08:30] LABS: CALCIUM 8.9 mg/dL (8.5-10.1)
[2021-10-06 08:31] LABS: ALBUMIN 2.8 g/dl (3.4-5.0); BLOOD UREA NITROGEN 86.6 mg/dL (7-18)
[2021-10-06 08:32] LABS: CREATININE 3.9 mg/dL (0.55-1.3)
[2021-10-06 08:34] LABS: BILIRUBIN,TOTAL 0.7 mg/dL (0.2-1); TOT PROT 7.3 g/dl (6.4-8.2)
[2021-10-06] MEDS: TAMSULOSIN HCL 0.4 MG CAP PO SCH (08:44)
[2021-10-06] MEDS: SEVELAMER CARBONATE 800 MG TAB (FP) PO SCH ×3 (08:44→17:21)
[2021-10-06] MEDS ORDERED: ESCITALOPRAM OXALATE 10 MG TABLET ONE (09:18)
[2021-10-06] MEDS ORDERED: PT OWN MED DRAWER 7, Y5N ONE ×2 (09:19→11:23)
[2021-10-06] MEDS: CARVEDILOL 25 MG TABLET (FP) PO SCH ×2 (09:24→21:00)
[2021-10-06] MEDS: TORSEMIDE 20 MG TABLET (FP) PO SCH ×2 (09:24→21:01)
[2021-10-06] MEDS: PANTOPRAZOLE 40 MG TABLET PO SCH (09:24)
[2021-10-06] MEDS: amLODIPine BESYLATE 5 MG TABLET (FP) PO SCH (09:24)
[2021-10-06] MEDS: APIXABAN 2.5 MG TABLET PO SCH ×2 (09:24→21:00)
[2021-10-06] MEDS: ISOSORBIDE MONONITRATE 30 MG TAB.SR.24H (FP) PO SCH (09:24)
[2021-10-06] MEDS: ESCITALOPRAM OXALATE 20 MG TABLET PO SCH (09:25)
[2021-10-06] MEDS ORDERED: FLUCONAZOLE 150 MG TABLET PO ONE (10:00)
[2021-10-06] MEDS: POLYETHYLENE GLYCOL (HEALTHYLAX) 3350 17 GM PACKET PO SCH ×2 (10:08→21:01)
[2021-10-06] MEDS: SPIRONOLACTONE 25 MG TABLET PO SCH (13:45)
[2021-10-06] MEDS: traZODone HCL 50 MG TABLET (FP) PO SCH (21:00)
[2021-10-06] MEDS: risperiDONE 0.5 MG TABLET PO SCH (21:00)
[2021-10-06] MEDS: ATORVASTATIN CA 20 MG TABLET (FP) PO SCH (21:00)
[2021-10-06] MEDS: ACETAMINOPHEN 325 MG TABLET (FP) PO PRN (21:01)
[2021-10-07] MEDS: INSULIN (LEVEMIR) 100 UNITS/ML UNITS SQ SCH (06:42)
[2021-10-07] MEDS: hydrALAZINE HCL 25 MG TABLET (FP) PO SCH ×3 (06:44→21:08)
[2021-10-07] MEDS: LEVOTHYROXINE NA 25 MCG TABLET (FP) PO SCH (06:44)
[2021-10-07] MEDS: LACTULOSE 20 GM/30 ML UDC (FOR ORAL USE ONLY) PO SCH ×3 (06:44→21:08)
[2021-10-07 07:46] LABS: BASO % 0.7 % (0-2.0); EOS % 8.2 % (0-4.5); HEMATOCRIT 26.7 % (35.4-49); HEMOGLOBIN 8.7 GM/dL (11.7-16.9); MCH 29.7 pg (25.7-33.7); MCHC 32.5 g/dl (32.0-35.9); MEAN CELL VOLUME 91.4 fl (80-96); MEAN PLT VOLUME 10.9 fl (7.5-11.1); MONO % 18.2 % (3.8-10.2); NEUT % 47.9 % (42.8-82.8); PLATELET COUNT 119 10^3/uL (134-434); RBC 2.92 M/mm3 (4.00-5.60); RDW 17.1 % (11.9-15.9); WHITE BLOOD COUNT 4.3 K/mm3 (4.0-10.0)
[2021-10-07 08:10] LABS: BLOOD UREA NITROGEN 83.3 mg/dL (7-18); CALCIUM 9.1 mg/dL (8.5-10.1)
[2021-10-07 08:13] LABS: CREATININE 3.4 mg/dL (0.55-1.3)
[2021-10-07 08:15] LABS: BILIRUBIN,TOTAL 0.7 mg/dL (0.2-1); TOT PROT 7.4 g/dl (6.4-8.2)
[2021-10-07] MEDS: SEVELAMER CARBONATE 800 MG TAB (FP) PO SCH ×3 (08:56→17:54)
[2021-10-07] MEDS ORDERED: ESCITALOPRAM OXALATE 10 MG TABLET ONE (10:47)
[2021-10-07] MEDS: APIXABAN 2.5 MG TABLET PO SCH ×2 (10:50→21:08)
[2021-10-07] MEDS: ISOSORBIDE MONONITRATE 30 MG TAB.SR.24H (FP) PO SCH (10:50)
[2021-10-07] MEDS: TAMSULOSIN HCL 0.4 MG CAP PO SCH (10:50)
[2021-10-07] MEDS: SPIRONOLACTONE 25 MG TABLET PO SCH (10:50)
[2021-10-07] MEDS: PANTOPRAZOLE 40 MG TABLET PO SCH (10:51)
[2021-10-07] MEDS: TORSEMIDE 20 MG TABLET (FP) PO SCH (10:51)
[2021-10-07] MEDS: CARVEDILOL 25 MG TABLET (FP) PO SCH ×2 (10:51→21:08)
[2021-10-07] MEDS: amLODIPine BESYLATE 5 MG TABLET (FP) PO SCH (10:51)
[2021-10-07] MEDS: POLYETHYLENE GLYCOL (HEALTHYLAX) 3350 17 GM PACKET PO SCH ×2 (10:51→21:08)
[2021-10-07] MEDS: ESCITALOPRAM OXALATE 20 MG TABLET PO SCH (10:51)
[2021-10-07] MEDS: SIMETHICONE 80 MG TAB.CHEW (FP) PO PRN (13:01)
[2021-10-07] MEDS: ACETAMINOPHEN 325 MG TABLET (FP) PO PRN (13:01)
[2021-10-07] MEDS: traZODone HCL 50 MG TABLET (FP) PO SCH (21:08)
[2021-10-07] MEDS: risperiDONE 0.5 MG TABLET PO SCH (21:08)
[2021-10-07] MEDS: ATORVASTATIN CA 20 MG TABLET (FP) PO SCH (21:08)
[2021-10-08] MEDS: LACTULOSE 20 GM/30 ML UDC (FOR ORAL USE ONLY) PO SCH ×3 (06:33→21:06)
[2021-10-08] MEDS: LEVOTHYROXINE NA 25 MCG TABLET (FP) PO SCH (06:33)
[2021-10-08] MEDS: INSULIN (LEVEMIR) 100 UNITS/ML UNITS SQ SCH (06:33)
[2021-10-08] MEDS: hydrALAZINE HCL 25 MG TABLET (FP) PO SCH ×3 (06:33→21:08)
[2021-10-08 08:19] LABS: BASO % 0.7 % (0-2.0); EOS % 6.1 % (0-4.5); HEMOGLOBIN 8.3 GM/dL (11.7-16.9); LYMPH % 22.7 % (8-40); MCHC 33.1 g/dl (32.0-35.9); MEAN CELL VOLUME 90.8 fl (80-96); MEAN PLT VOLUME 10.7 fl (7.5-11.1); MONO % 18.7 % (3.8-10.2); NEUT % 51.8 % (42.8-82.8); PLATELET COUNT 121 10^3/uL (134-434); RBC 2.76 M/mm3 (4.00-5.60); RDW 16.9 % (11.9-15.9); WHITE BLOOD COUNT 4.7 K/mm3 (4.0-10.0)
[2021-10-08 08:46] LABS: ALBUMIN 2.8 g/dl (3.4-5.0); BLOOD UREA NITROGEN 79.2 mg/dL (7-18); CALCIUM 8.8 mg/dL (8.5-10.1)
[2021-10-08 08:49] LABS: CREATININE 3.4 mg/dL (0.55-1.3)
[2021-10-08 08:51] LABS: BILIRUBIN,TOTAL 0.7 mg/dL (0.2-1); TOT PROT 7.3 g/dl (6.4-8.2)
[2021-10-08] MEDS ORDERED: ESCITALOPRAM OXALATE 10 MG TABLET ONE (09:37)
[2021-10-08] MEDS: SPIRONOLACTONE 25 MG TABLET PO SCH (09:41)
[2021-10-08] MEDS: PANTOPRAZOLE 40 MG TABLET PO SCH (09:41)
[2021-10-08] MEDS: SEVELAMER CARBONATE 800 MG TAB (FP) PO SCH ×3 (09:41→17:15)
[2021-10-08] MEDS: TAMSULOSIN HCL 0.4 MG CAP PO SCH (09:41)
[2021-10-08] MEDS: CARVEDILOL 25 MG TABLET (FP) PO SCH ×2 (09:41→21:08)
[2021-10-08] MEDS: ISOSORBIDE MONONITRATE 30 MG TAB.SR.24H (FP) PO SCH (09:41)
[2021-10-08] MEDS: APIXABAN 2.5 MG TABLET PO SCH ×2 (09:41→21:08)
[2021-10-08] MEDS: amLODIPine BESYLATE 5 MG TABLET (FP) PO SCH (09:41)
[2021-10-08] MEDS: TORSEMIDE 20 MG TABLET (FP) PO SCH (09:41)
[2021-10-08] MEDS: POLYETHYLENE GLYCOL (HEALTHYLAX) 3350 17 GM PACKET PO SCH ×2 (09:42→21:08)
[2021-10-08] MEDS: ESCITALOPRAM OXALATE 20 MG TABLET PO SCH (09:42)
[2021-10-08] MEDS ORDERED: TORSEMIDE 20 MG TABLET (FP) PO SCH (10:00)
[2021-10-08] MEDS: SIMETHICONE 80 MG TAB.CHEW (FP) PO PRN (21:07)
[2021-10-08] MEDS: ATORVASTATIN CA 20 MG TABLET (FP) PO SCH (21:07)
[2021-10-08] MEDS: traZODone HCL 50 MG TABLET (FP) PO SCH (21:07)
[2021-10-08] MEDS: risperiDONE 0.5 MG TABLET PO SCH (21:07)
[2021-10-09] MEDS: LEVOTHYROXINE NA 25 MCG TABLET (FP) PO SCH (05:37)
[2021-10-09] MEDS: hydrALAZINE HCL 25 MG TABLET (FP) PO SCH ×3 (05:37→21:22)
[2021-10-09] MEDS: LACTULOSE 20 GM/30 ML UDC (FOR ORAL USE ONLY) PO SCH ×3 (05:37→21:22)
[2021-10-09] MEDS: INSULIN (LEVEMIR) 100 UNITS/ML UNITS SQ SCH (06:27)
[2021-10-09 07:48] LABS: BASO % 0.8 % (0-2.0); EOS % 6.5 % (0-4.5); HEMATOCRIT 25.7 % (35.4-49); HEMOGLOBIN 8.3 GM/dL (11.7-16.9); LYMPH % 22.2 % (8-40); MCH 29.3 pg (25.7-33.7); MCHC 32.3 g/dl (32.0-35.9); MEAN CELL VOLUME 90.6 fl (80-96); MEAN PLT VOLUME 10.7 fl (7.5-11.1); MONO % 16.3 % (3.8-10.2); NEUT % 54.2 % (42.8-82.8); PLATELET COUNT 122 10^3/uL (134-434); RBC 2.83 M/mm3 (4.00-5.60); RDW 16.8 % (11.9-15.9); WHITE BLOOD COUNT 4.4 K/mm3 (4.0-10.0)
[2021-10-09 08:34] LABS: CALCIUM 9.1 mg/dL (8.5-10.1)
[2021-10-09 08:35] LABS: ALBUMIN 3.1 g/dl (3.4-5.0); BLOOD UREA NITROGEN 71.1 mg/dL (7-18)
[2021-10-09 08:38] LABS: CREATININE 3.1 mg/dL (0.55-1.3)
[2021-10-09 08:39] LABS: BILIRUBIN,TOTAL 0.8 mg/dL (0.2-1); TOT PROT 7.4 g/dl (6.4-8.2)
[2021-10-09] MEDS ORDERED: ESCITALOPRAM OXALATE 10 MG TABLET ONE (09:13)
[2021-10-09] MEDS: SEVELAMER CARBONATE 800 MG TAB (FP) PO SCH ×3 (09:15→17:06)
[2021-10-09] MEDS: amLODIPine BESYLATE 5 MG TABLET (FP) PO SCH (09:15)
[2021-10-09] MEDS: TORSEMIDE 20 MG TABLET (FP) PO SCH (09:16)
[2021-10-09] MEDS: TAMSULOSIN HCL 0.4 MG CAP PO SCH (09:16)
[2021-10-09] MEDS: SPIRONOLACTONE 25 MG TABLET PO SCH (09:16)
[2021-10-09] MEDS: APIXABAN 2.5 MG TABLET PO SCH ×2 (09:16→21:23)
[2021-10-09] MEDS: CARVEDILOL 25 MG TABLET (FP) PO SCH ×2 (09:16→21:22)
[2021-10-09] MEDS: ISOSORBIDE MONONITRATE 30 MG TAB.SR.24H (FP) PO SCH (09:16)
[2021-10-09] MEDS: PANTOPRAZOLE 40 MG TABLET PO SCH (09:16)
[2021-10-09] MEDS: POLYETHYLENE GLYCOL (HEALTHYLAX) 3350 17 GM PACKET PO SCH ×2 (09:16→21:23)
[2021-10-09] MEDS: ESCITALOPRAM OXALATE 20 MG TABLET PO SCH (09:16)
[2021-10-09] MEDS: ACETAMINOPHEN 325 MG TABLET (FP) PO PRN (10:45)
[2021-10-09] MEDS: traZODone HCL 50 MG TABLET (FP) PO SCH (21:22)
[2021-10-09] MEDS: ATORVASTATIN CA 20 MG TABLET (FP) PO SCH (21:23)
[2021-10-09] MEDS: risperiDONE 0.5 MG TABLET PO SCH (21:23)
[2021-10-10] MEDS: LEVOTHYROXINE NA 25 MCG TABLET (FP) PO SCH (06:40)
[2021-10-10] MEDS: LACTULOSE 20 GM/30 ML UDC (FOR ORAL USE ONLY) PO SCH ×2 (06:41→14:03)
[2021-10-10] MEDS: hydrALAZINE HCL 25 MG TABLET (FP) PO SCH ×2 (06:41→14:04)
[2021-10-10] MEDS: INSULIN (LEVEMIR) 100 UNITS/ML UNITS SQ SCH (06:41)
[2021-10-10 08:06] LABS: BASO % 0.5 % (0-2.0); EOS % 6.2 % (0-4.5); HEMATOCRIT 24.7 % (35.4-49); HEMOGLOBIN 8.1 GM/dL (11.7-16.9); LYMPH % 16.5 % (8-40); MCH 28.8 pg (25.7-33.7); MCHC 32.6 g/dl (32.0-35.9); MEAN CELL VOLUME 88.5 fl (80-96); MEAN PLT VOLUME 10.3 fl (7.5-11.1); MONO % 13.9 % (3.8-10.2); NEUT % 62.9 % (42.8-82.8); PLATELET COUNT 110 10^3/uL (134-434); RDW 16.5 % (11.9-15.9); WHITE BLOOD COUNT 4.9 K/mm3 (4.0-10.0)
[2021-10-10] MEDS ORDERED: ESCITALOPRAM OXALATE 10 MG TABLET ONE (08:32)
[2021-10-10 08:37] LABS: ALBUMIN 2.8 g/dl (3.4-5.0); BLOOD UREA NITROGEN 65.3 mg/dL (7-18); CALCIUM 9.2 mg/dL (8.5-10.1)
[2021-10-10] MEDS: SEVELAMER CARBONATE 800 MG TAB (FP) PO SCH ×3 (08:38→17:10)
[2021-10-10] MEDS: TAMSULOSIN HCL 0.4 MG CAP PO SCH (08:38)
[2021-10-10 08:40] LABS: CREATININE 2.9 mg/dL (0.55-1.3)
[2021-10-10 08:42] LABS: BILIRUBIN,TOTAL 0.8 mg/dL (0.2-1); TOT PROT 7.4 g/dl (6.4-8.2)
[2021-10-10] MEDS: POLYETHYLENE GLYCOL (HEALTHYLAX) 3350 17 GM PACKET PO SCH (09:11)
[2021-10-10] MEDS: SPIRONOLACTONE 25 MG TABLET PO SCH (09:11)
[2021-10-10] MEDS: APIXABAN 2.5 MG TABLET PO SCH (09:11)
[2021-10-10] MEDS: TORSEMIDE 20 MG TABLET (FP) PO SCH (09:11)
[2021-10-10] MEDS: ISOSORBIDE MONONITRATE 30 MG TAB.SR.24H (FP) PO SCH (09:11)
[2021-10-10] MEDS: PANTOPRAZOLE 40 MG TABLET PO SCH (09:12)
[2021-10-10] MEDS: ESCITALOPRAM OXALATE 20 MG TABLET PO SCH (09:12)
[2021-10-10] MEDS: amLODIPine BESYLATE 5 MG TABLET (FP) PO SCH (09:12)
[2021-10-10] MEDS: CARVEDILOL 25 MG TABLET (FP) PO SCH (09:12)
[2021-10-10 17:52] VITALS: BP 126/67; PULSE 66; TEMP 98.9
== END 2021-10-10 17:13 | disposition home or self-care (01) | DRG 291 ==
LOC: JER 11:07 → JERBED 15:02 → J4W 17:47 → JICU 09-09 20:09 → J4S 09-13 21:26
PROVIDERS: ADMIT Family Medicine; ATTEND Family Medicine
PROC: 0W9G3ZX Drainage of Peritoneal Cavity, Percutaneous Approach, Diagnostic (ICD-10-PCS; principal; 2021-09-30)
DX: I13.0 Hypertensive heart and chronic kidney disease with heart failure and stage 1 through stage 4 chronic kidney disease, or unspecified chronic kidney disease (principal); I50.23 Acute on chronic systolic (congestive) heart failure; J18.9 Pneumonia, unspecified organism; J96.01 Acute respiratory failure with hypoxia; N17.9 Acute kidney failure, unspecified; I48.92 Unspecified atrial flutter; R18.8 Other ascites; E87.2 Acidosis; E11.22 Type 2 diabetes mellitus with diabetic chronic kidney disease; N18.9 Chronic kidney disease, unspecified; I08.1 Rheumatic disorders of both mitral and tricuspid valves; I27.20 Pulmonary hypertension, unspecified; I25.10 Atherosclerotic heart disease of native coronary artery without angina pectoris; I48.0 Paroxysmal atrial fibrillation; D50.9 Iron deficiency anemia, unspecified; K82.8 Other specified diseases of gallbladder; N28.1 Cyst of kidney, acquired; E87.5 Hyperkalemia; R91.8 Other nonspecific abnormal finding of lung field; K81.9 Cholecystitis, unspecified; D72.10 Eosinophilia, unspecified; K72.90 Hepatic failure, unspecified without coma; E03.9 Hypothyroidism, unspecified; F41.8 Other specified anxiety disorders; E78.5 Hyperlipidemia, unspecified; R94.5 Abnormal results of liver function studies; F39 Unspecified mood [affective] disorder; Z95.0 Presence of cardiac pacemaker; Z86.19 Personal history of other infectious and parasitic diseases
CPT/HCPCS: 36415; 36430; 36600; 70450-TC; 71045-TC-FY; 74176-TC; 74177-TC; 76700-TC; 76856-TC; 76942-TC; 78226-TC; 80048; 80053; 80076; 81003; 82042; 82140; 82150; 82436; 82465; 82550; 82570; 82607; 82728; 82746; 82803; 82945; 82962; 83516; 83520; 83540; 83550; 83615; 83735; 83880; 83986; 84100; 84133; 84157; 84300; 84478; 84484; 85025; 85027; 85045; 85610; 85730; 86038; 86140; 86160; 86225; 86235; 86256; 86682; 86803; 86850; 86900; 86901; 86922; 87040; 87070; 87075; 87086; 87102; 87116; 87186; 87205; 87206; 87210; 87340; 87899; 88108; 88305-TC; 93005; 93010; 93306-TC; 93970-TC; 94640; 94660; 94761; 97116-GP; 97162-GP; 99285-25; A9537; C9803; J0131; J1756; J2794; P9047; P9058; Q9967; U0003; U0005

== ENCOUNTER 2021-12-29 10:06 | Emergency (ER) | payer OTHER ==
[2021-12-29 10:40] VITALS: TEMP 98.1; BMI 25.1
[2021-12-29 11:54] LABS: BASO % 0.5 % (0-2.0); EOS % 6.4 % (0-4.5); HEMATOCRIT 30.9 % (35.4-49); LYMPH % 13.6 % (8-40); MCH 28.8 pg (25.7-33.7); MCHC 32.3 g/dl (32.0-35.9); MEAN CELL VOLUME 89.3 fl (80-96); MEAN PLT VOLUME 10.3 fl (7.5-11.1); MONO % 14.3 % (3.8-10.2); NEUT % 65.2 % (42.8-82.8); PLATELET COUNT 177 10^3/uL (134-434); RBC 3.46 M/mm3 (4.00-5.60); RDW 17.7 % (11.9-15.9); WHITE BLOOD COUNT 5.9 K/mm3 (4.0-10.0)
[2021-12-29 13:12] LABS: ALBUMIN 3.5 g/dl (3.4-5.0); BLOOD UREA NITROGEN 53.8 mg/dL (7-18); CALCIUM 8.9 mg/dL (8.5-10.1); CREATININE 2.5 mg/dL (0.55-1.3); MAGNESIUM 2.3 mg/dL (1.8-2.4); N-TERMINAL BNP 7601.5 pg/ml (5-125); TOT PROT 7.6 g/dl (6.4-8.2)
[2021-12-29] MEDS ORDERED: FUROSEMIDE 40 MG/4 ML INJECTABLE VIAL IVPUSH ONE (13:38)
[2021-12-29] MEDS ORDERED: FUROSEMIDE 40 MG/4 ML INJECTABLE VIAL ONE (13:44)
[2021-12-29 14:18] VITALS: BP 197/108; PULSE 99
== END 2021-12-29 14:12 | disposition left against medical advice (07) ==
LOC: JER 10:06
PROC: 3E033GC Introduction of Other Therapeutic Substance into Peripheral Vein, Percutaneous Approach (ICD-10-PCS; principal; 2021-12-29)
DX: R06.02 Shortness of breath (principal)
CPT/HCPCS: 36415; 71045-TC-FY; 80053; 82550; 82553; 83735; 83880; 84484; 85025; 93005; 93010; 99285-25